=== PATIENT | male | born 1960 | race Caucasian/White ===

== ENCOUNTER 2016-09-23 08:20 | Inpatient (IN) | payer OTHER ==
[2016-09-23 10:37] VITALS: BMI 29.7
--- NOTE | 2016-09-23 13:53 | HP ---
CIWA Score - CIWA Score Nausea/Vomitin Muscle Tremors: 3 Anxiety: 3 Agitation: 3 Paroxysmal Sweats: 2 Orientation: 0-Oriented Tacttile Disturbances: 2-Mild Itch/Numbness/Burn Auditory Disturbances: 2-Mild Harshness/Frighten Visual Disturbances: 2-Mild Sensitivity Headache: 2-Mild CIWA-Ar Total Score: 22 Admission ROS BHS - HPI Chief Complaint: I AM HERE TO STOP USING XANAX AND KLONOPIN Allergies/Adverse Reactions: Allergies Allergy/AdvReac Type Severity Reaction Status Date / Time clarithromycin [From Biaxin] Allergy Hives Verified 09/23/16 11:16 codeine Allergy Hives Verified 09/23/16 11:16 Penicillins Allergy Hives Verified 09/23/16 11:16 History of Present Illness: THIS 56 YEARS OLD MALE WITH XANAX SEEKING HELP TO STOP USING XANAX AND KLONOPIN MMTP 120 MGS/DAY,LAST MEDICATED TODAY LAST DETOX 2013 CHRONIC ULCER BOTH LEGS 2 YEARS NICOTINE DEPENDENCE NO SIGNIFICANT PERIOD OF SOBRIETY Exam Limitations: No Limitations - Ebola screening Have you traveled outside of the country in the last 21 days: No Have you had contact with anyone from an Ebola affected area: No Have you been sick,other than usual withdrawal symptoms: No - Review of Systems Constitutional: Loss of Appetite, Malaise, Night Sweats, Changes in sleep, Weakness EENT: reports: Nose Congestion Respiratory: reports: No Symptoms reported Cardiac: reports: Palpitations GI: reports: Nausea, Poor Appetite : reports: No Symptoms Reported Musculoskeletal: reports: Back Pain, Muscle Pain Integumentary: reports: Dryness Neuro: reports: Headache, Tremors Endocrine: reports: No Symptoms Reported Hematology: reports: No Symptoms Reported, Other (ANEMIA) Psychiatric: reports: No Sypmtoms Reported, Judgement Intact, Mood/Affect Appropiate Patient History - Patient Medical History Hx Anemia: Yes (ON IRON) Hx Asthma: No Hx Chronic Obstructive Pulmonary Disease (COPD): No Hx Cancer: No Hx Cardiac Disorders: No Hx Congestive Heart Failure: Yes Hx Hypertension: Yes (ON MED) Hx Hypercholesterolemia: No Hx Pacemaker: No HX Cerebrovascular Accident: No Hx Seizures: No Hx Dementia: No Hx Diabetes: Yes (bgm-135 ON MED) Hx Gastrointestinal Disorders: No Hx Liver Disease: No Hx Genitourinary Disorders: No Hx Sexually Transmitted Disorders: No Hx Renal Disease (ESRD): No Hx Thyroid Disease: No Hx Human Immunodeficiency Virus (HIV): No (LAST 2015 NEGATIVE) Hx Hepatitis C: No Hx Depression: No Hx Suicide Attempt: No Hx Bipolar Disorder: No Hx Schizophrenia: No Other Medical History: NO SUICIDAL,NO HOMICIDAL - Patient Surgical History Past Surgical History: Yes Hx Abdominal Surgery: Yes (POLYP TUMOR REMOVAL 1985) Hx Appendectomy: Yes (1989) Other Surgical History: 1969- THYROID CYST Anesthesia Reaction: No - PPD History Previous Implant?: Yes Documented Results: Negative w/proof Implanted On Prior [facility] Admission?: Yes PPD to be Administered?: Yes - Smoking Cessation Smoking history: Current every day smoker Have you smoked in the past 12 months: Yes Aproximately how many cigarettes per day: 8 If you are a former smoker, when did you quit?: 10/20/2014 Hx Chewing Tobacco Use: No Initiated information on smoking cessation: Yes 'Breaking Loose' booklet given: 09/23/16 - Substance & Tx. History Hx Alcohol Use: No Hx Substance Use: Yes Substance Use Type: Tranquilizers Hx Substance Use Treatment: Yes (2011 [facility]) - Substances Abused Alprazolam (Xanax) Route: Oral Frequency: 3-6 times per week Amount used: 4 stiks Age of first use: 89 Date of Last Use: 09/21/16 Benzodiazepine (Klonopin) Route: Oral Frequency: Daily Amount used: 7-8 pills Age of first use: 55 Date of Last Use: 09/09/16 Diazepam Route: Oral Frequency: Daily Amount used: 4-5 pills Age of first use: 55 Date of Last Use: 09/18/16 Family Disease History - Family Disease History Family Disease History: CA: Grandparent (paternal: colon cancer), Father (colon cancer ), Other: Mother (emphysema ) Admission Physical Exam BHS - Vital Signs Vital Signs: Vital Signs Temperature 97.9 F 09/23/16 14:58 Pulse Rate 86 09/23/16 14:58 Respiratory Rate 20 09/23/16 14:58 Blood Pressure 149/88 09/23/16 14:58 O2 Sat by Pulse Oximetry (%) - Physical General Appearance: Yes: Moderate Distress, Tremorous, Irritable, Sweating, Anxious HEENTM: Yes: Hearing grossly Normal, Pharynx Normal, Nasal Congestion Respiratory: Yes: Lungs Clear, Normal Breath Sounds, No Respiratory Distress, Other (LIPOMA LEFT POSTERIOR CHEST WALL 4X4 CMS) Neck: Yes: Within Normal Limits, Supple, Trachea in good position, Other (SCAR ANTERIOR OF NECK) Breast: Yes: Other (GYNECOMASTIA LEFT) Cardiology: Yes: Within Normal Limits, Regular Rhythm, Regular Rate, S1, S2 Abdominal: Yes: Within Normal Limits, Normal Bowel Sounds, Non Tender, Flat, Soft Genitourinary: Yes: Within Normal Limits Back: Yes: Muscle Spasm Musculoskeletal: Yes: Back pain, Muscle Pain Extremities: Yes: Tremors (SWELLING BOTH LEGS SUPERFICIAL ULCER BOTH LEGS) Neurological: Yes: foot miter operator II-XII NML intact, Fully Oriented, Alert, Motor Strength 5/5 Integumentary: Yes: Dry Lymphatic: Yes: Within Normal Limits - Diagnostic (1) Uncomplicated sedative, hypnotic or anxiolytic withdrawal Current Visit: Yes Status: Acute (2) Methadone maintenance therapy patient Current Visit: Yes Status: Acute (3) Anemia Current Visit: No Status: Acute Qualifiers: Anemia type: unspecified type Qualified Code(s): D64.9 - Anemia, unspecified (4) Polysubstance (excluding opioids) dependence Current Visit: No Status: Acute (5) History of DVT of lower extremity Current Visit: Yes Status: Acute (6) S/P IVC filter Current Visit: Yes Status: Acute (7) Ulcers of both lower legs Current Visit: Yes Status: Acute (8) Gynecomastia, male Current Visit: Yes Status: Acute (9) Lipoma of chest wall Current Visit: Yes Status: Acute Cleared for Admission [facility] - Detox or Rehab [facility] Level of Care: Medically Managed Detox Regimen/Protocol: Valium [facility] Breath Alcohol Content Breath Alcohol Content: 0 Urine Drug Screen - Results Drug Screen Negative: No Urine Drug Screen Results: BZO-Benzodiazepines, MTD-Methadone, TCA-Tricyclic Antidepress
[2016-09-23] MEDS ORDERED: MAGNESIUM CITRATE 300 ML BOTTLE PO PRN (14:12)
[2016-09-23] MEDS ORDERED: ACETAMINOPHEN 325 MG TABLET (FP) PO PRN (14:12)
[2016-09-23] MEDS ORDERED: hydrOXYzine PAMOATE 25 MG CAPSULE (FP) PO PRN (14:12)
[2016-09-23] MEDS ORDERED: MENTHOL/PHENOL 1 EACH UD MM PRN (14:12)
[2016-09-23] MEDS ORDERED: MAG HYDROX/AL HYDROX/SIMETH 30 ML UNIT-DOSE CUP PO PRN (14:12)
[2016-09-23] MEDS ORDERED: guaiFENesin/D-METHORPHAN HB 10 ML UNIT-DOSE CUPS PO PRN (14:12)
[2016-09-23] MEDS ORDERED: MAGNESIUM HYDROX 2400MG/30ML ORAL SUSPENSION 30 ML CUP PO PRN (14:12)
[2016-09-23] MEDS ORDERED: P-EPHED 60MG/TRIPROLIDI 2.5MG TABLET PO PRN (14:12)
[2016-09-23] MEDS ORDERED: LOPERAMIDE HCL 2 MG CAPSULE PO PRN (14:12)
[2016-09-23] MEDS ORDERED: diazePAM 5 MG TABLET PO ONE (14:42)
[2016-09-23 15:56] LABS: HIV 1 & 2 AB NEGATIVE; HIV 1 AGp24 NEGATIVE
[2016-09-23] MEDS: metFORMIN HCL 500 MG TABLET (FP) PO SCH (19:37)
[2016-09-23] MEDS: FERROUS SO4 325 MG TABLET (FP) PO SCH (19:37)
[2016-09-23] MEDS: diazePAM 5 MG TABLET PO PRN (19:37)
[2016-09-23] MEDS: THIAMINE HCL 100 MG TABLET (FP) PO SCH (23:30)
[2016-09-23] MEDS: diazePAM 5 MG TABLET PO SCH (23:30)
[2016-09-23] MEDS: diphenhydrAMINE HCL 50 MG CAPSULE PO PRN (23:31)
[2016-09-23] MEDS: SILVER SULFADIAZINE 1% TOP CREAM 50 GM JAR TP SCH (23:38)
[2016-09-24] MEDS: METHADONE HCL 40 MG DISPERSABLE TABLET PO SCH (05:59)
[2016-09-24] MEDS: diazePAM 5 MG TABLET PO SCH ×3 (05:59→22:01)
[2016-09-24] MEDS: metFORMIN HCL 500 MG TABLET (FP) PO SCH ×2 (08:16→17:48)
[2016-09-24] MEDS: FERROUS SO4 325 MG TABLET (FP) PO SCH ×3 (08:17→17:48)
--- NOTE | 2016-09-24 09:14 | EKG ---
Test Reason : Blood Pressure : / mmHG Vent. Rate : 086 BPM Atrial Rate : 086 BPM P-R Int : 130 ms QRS Dur : 086 ms QT Int : 420 ms P-R-T Axes : 066 028 037 degrees QTc Int : 502 ms NORMAL SINUS RHYTHM POSSIBLE LEFT ATRIAL ENLARGEMENT PROLONGED QT ABNORMAL ECG WHEN COMPARED WITH ECG OF 13-MAR-2016 12:22, NO SIGNIFICANT CHANGE WAS FOUND Confirmed by RHINA LEMUS MD ([id number]) on 09/24/2016 9:14:15 AM Referred By: Confirmed By:RHINA LEMUS MD
[2016-09-24 10:15] LABS: MCH 22.9 pg (25.7-33.7); MCHC 30.9 g/dl (32.0-35.9); MEAN CELL VOLUME 74.1 fl (80-96); MEAN PLT VOLUME 7.9 fl (7.5-11.1); PLATELET COUNT 388 K/MM3 (134-434); RDW 17.6 % (11.9-15.9); WHITE BLOOD COUNT 7.6 K/mm3 (4.0-10.0)
[2016-09-24] MEDS: PRENATAL VITAMINS W/ FOLIC ACID TABLET (FP) PO SCH (10:22)
[2016-09-24] MEDS: IBUPROFEN 400 MG TABLET (FP) PO PRN ×2 (10:22→17:50)
[2016-09-24] MEDS: diazePAM 5 MG TABLET PO PRN (10:22)
[2016-09-24] MEDS: METOPROLOL SUCCINATE 25 MG TAB.SR.24H (FP) PO SCH (10:22)
[2016-09-24] MEDS: SILVER SULFADIAZINE 1% TOP CREAM 50 GM JAR TP SCH ×2 (10:24→22:01)
[2016-09-24 10:37] LABS: ALK PHOS 119 U/L (45-117); ANION GAP 10 (8-16); BILIRUBIN,TOTAL 0.3 mg/dL (0.2-1.0); CO2 27 mmol/L (21-32); COCKROFT - GAULT 110.38; CREATININE 0.9 mg/dL (0.7-1.3); GLUCOSE,RANDOM 109 mg/dL (74-106); SGOT/AST 27 U/L (15-37); SGPT/ALT 11 U/L (12-78); TOT PROT 7.7 g/dl (6.4-8.2)
--- NOTE | 2016-09-24 13:58 | PN ---
S CIWA - CIWA Score Nausea/Vomitin Muscle Tremors: 3 Anxiety: 3 Agitation: 3 Paroxysmal Sweats: 3 Orientation: 0-Oriented Tacttile Disturbances: 2-Mild Itch/Numbness/Burn Auditory Disturbances: 0-None Visual Disturbances: 1-Very Mild Sensitivity Headache: 2-Mild CIWA-Ar Total Score: 19 S Progress Note (SOAP) Subjective: Shakes, sweats, irritability, joint/right arm pain Objective: 09/24/16 13:57 Vital Signs - 8 hr 09/24/16 09/24/16 09/24/16 06:00 06:30 10:50 Temperature 98.4 F 98.1 F Pulse Rate 80 87 Respiratory 18 18 18 Rate Blood Pressure 144/84 156/97 Laboratory Last Values WBC 7.6 K/mm3 (4.0-10.0) 09/24/16 06:10 RBC 4.19 M/mm3 (4.00-5.60) 09/24/16 06:10 Hgb 9.6 GM/dL (11.7-16.9) L D 09/24/16 06:10 Hct 31.1 % (35.4-49) L 09/24/16 06:10 MCV 74.1 fl (80-96) L 09/24/16 06:10 MCHC 30.9 g/dl (32.0-35.9) L 09/24/16 06:10 RDW 17.6 % (11.9-15.9) H 09/24/16 06:10 Plt Count 388 K/MM3 (134-434) 09/24/16 06:10 MPV 7.9 fl (7.5-11.1) 09/24/16 06:10 Sodium 138 mmol/L (136-145) 09/24/16 06:10 Potassium 4.3 mmol/L (3.5-5.1) 09/24/16 06:10 Chloride 101 mmol/L (98-107) 09/24/16 06:10 Carbon Dioxide 27 mmol/L (21-32) 09/24/16 06:10 Anion Gap 10 (8-16) 09/24/16 06:10 BUN 12 mg/dL (7-18) D 09/24/16 06:10 Creatinine 0.9 mg/dL (0.7-1.3) 09/24/16 06:10 Creat Clearance w eGFR > 60 (>60) 09/24/16 06:10 POC Glucometer 96 UNITS (()) 09/24/16 05:57 Random Glucose 109 mg/dL (74-106) H 09/24/16 06:10 Calcium 9.0 mg/dL (8.5-10.1) 09/24/16 06:10 Total Bilirubin 0.3 mg/dL (0.2-1.0) 09/24/16 06:10 AST 27 U/L (15-37) D 09/24/16 06:10 ALT 11 U/L (12-78) L D 09/24/16 06:10 Alkaline Phosphatase 119 U/L (45-117) H 09/24/16 06:10 Total Protein 7.7 g/dl (6.4-8.2) 09/24/16 06:10 Albumin 3.0 g/dl (3.4-5.0) L 09/24/16 06:10 RPR Titer Nonreactive (NONREACTIVE) 09/24/16 06:10 HIV 1&2 Antibody Screen Negative 09/23/16 11:50 HIV P24 Antigen Negative 09/23/16 11:50 Labs noted Assessment: 09/24/16 13:57 withdrawal sx Plan: continue detox
[2016-09-24] MEDS: THIAMINE HCL 100 MG TABLET (FP) PO SCH (22:01)
[2016-09-25] MEDS: IBUPROFEN 400 MG TABLET (FP) PO PRN (04:19)
[2016-09-25] MEDS: diazePAM 5 MG TABLET PO PRN ×2 (04:19→19:47)
[2016-09-25] MEDS: METHADONE HCL 40 MG DISPERSABLE TABLET PO SCH (05:34)
[2016-09-25] MEDS: FERROUS SO4 325 MG TABLET (FP) PO SCH ×3 (07:58→18:29)
[2016-09-25] MEDS: metFORMIN HCL 500 MG TABLET (FP) PO SCH ×2 (07:58→18:29)
[2016-09-25] MEDS: diazePAM 5 MG TABLET PO SCH ×2 (10:11→22:13)
[2016-09-25] MEDS: METOPROLOL SUCCINATE 25 MG TAB.SR.24H (FP) PO SCH (10:11)
[2016-09-25] MEDS: PRENATAL VITAMINS W/ FOLIC ACID TABLET (FP) PO SCH (10:11)
[2016-09-25] MEDS: SILVER SULFADIAZINE 1% TOP CREAM 50 GM JAR TP SCH ×2 (10:13→23:00)
--- NOTE | 2016-09-25 12:49 | PN ---
[facility] CIWA - CIWA Score Nausea/Vomitin-No Nausea/No Vomiting Muscle Tremors: 3 Anxiety: 4-Mod. Anxious/Guarded Agitation: 4-Moderately Restless Paroxysmal Sweats: 3 Orientation: 0-Oriented Tacttile Disturbances: 0-None Auditory Disturbances: 0-None Visual Disturbances: 0-None Headache: 0-None Present CIWA-Ar Total Score: 14 BHS Progress Note (SOAP) Subjective: Anxiety,tremors,sweating,interrupted sleep,restless. Objective: 09/25/16 12:45 Vital Signs - 8 hr 09/25/16 09/25/16 06:00 09:48 Temperature 98.4 F 97.9 F Pulse Rate 60 71 Respiratory 18 16 Rate Blood Pressure 160/84 149/88 Laboratory Last Values WBC 7.6 K/mm3 (4.0-10.0) 09/24/16 06:10 RBC 4.19 M/mm3 (4.00-5.60) 09/24/16 06:10 Hgb 9.6 GM/dL (11.7-16.9) L D 09/24/16 06:10 Hct 31.1 % (35.4-49) L 09/24/16 06:10 MCV 74.1 fl (80-96) L 09/24/16 06:10 MCHC 30.9 g/dl (32.0-35.9) L 09/24/16 06:10 RDW 17.6 % (11.9-15.9) H 09/24/16 06:10 Plt Count 388 K/MM3 (134-434) 09/24/16 06:10 MPV 7.9 fl (7.5-11.1) 09/24/16 06:10 Sodium 138 mmol/L (136-145) 09/24/16 06:10 Potassium 4.3 mmol/L (3.5-5.1) 09/24/16 06:10 Chloride 101 mmol/L (98-107) 09/24/16 06:10 Carbon Dioxide 27 mmol/L (21-32) 09/24/16 06:10 Anion Gap 10 (8-16) 09/24/16 06:10 BUN 12 mg/dL (7-18) D 09/24/16 06:10 Creatinine 0.9 mg/dL (0.7-1.3) 09/24/16 06:10 Creat Clearance w eGFR > 60 (>60) 09/24/16 06:10 POC Glucometer 108 UNITS (()) 09/25/16 05:32 Random Glucose 109 mg/dL (74-106) H 09/24/16 06:10 Calcium 9.0 mg/dL (8.5-10.1) 09/24/16 06:10 Total Bilirubin 0.3 mg/dL (0.2-1.0) 09/24/16 06:10 AST 27 U/L (15-37) D 09/24/16 06:10 ALT 11 U/L (12-78) L D 09/24/16 06:10 Alkaline Phosphatase 119 U/L (45-117) H 09/24/16 06:10 Total Protein 7.7 g/dl (6.4-8.2) 09/24/16 06:10 Albumin 3.0 g/dl (3.4-5.0) L 09/24/16 06:10 RPR Titer Nonreactive (NONREACTIVE) 09/24/16 06:10 HIV 1&2 Antibody Screen Negative 09/23/16 11:50 HIV P24 Antigen Negative 09/23/16 11:50 labs noted Assessment: 09/25/16 12:49 Withdrawal sx. Plan: Continue detox
[2016-09-25] MEDS: THIAMINE HCL 100 MG TABLET (FP) PO SCH (22:12)
[2016-09-25] MEDS: diphenhydrAMINE HCL 50 MG CAPSULE PO PRN (22:12)
[2016-09-26] MEDS: diphenhydrAMINE HCL 50 MG CAPSULE PO PRN ×2 (02:24→22:47)
[2016-09-26] MEDS: diazePAM 5 MG TABLET PO PRN (02:25)
[2016-09-26] MEDS: METHADONE HCL 40 MG DISPERSABLE TABLET PO SCH (05:39)
[2016-09-26] MEDS: FERROUS SO4 325 MG TABLET (FP) PO SCH ×3 (08:00→17:16)
[2016-09-26] MEDS: metFORMIN HCL 500 MG TABLET (FP) PO SCH ×2 (08:41→17:16)
[2016-09-26] MEDS: diazePAM 5 MG TABLET PO SCH ×2 (10:08→22:47)
[2016-09-26] MEDS: METOPROLOL SUCCINATE 25 MG TAB.SR.24H (FP) PO SCH (10:08)
[2016-09-26] MEDS: PRENATAL VITAMINS W/ FOLIC ACID TABLET (FP) PO SCH (10:08)
[2016-09-26] MEDS: SILVER SULFADIAZINE 1% TOP CREAM 50 GM JAR TP SCH ×2 (10:10→22:48)
--- NOTE | 2016-09-26 14:50 | PN ---
BHS Progress Note (SOAP) Subjective: sweats interrupted sleep body aches beside the lympoma on my back I also have nodules on my left breast. Objective: 09/26/16 14:45 Vital Signs Temperature 97.7 F 09/26/16 14:00 Pulse Rate 64 09/26/16 14:00 Respiratory Rate 18 09/26/16 14:00 Blood Pressure 144/62 09/26/16 14:00 O2 Sat by Pulse Oximetry (%) Laboratory Tests 09/23/16 09/23/16 09/23/16 11:48 11:50 16:28 WBC RBC Hgb Hct MCV MCHC RDW Plt Count MPV Sodium Potassium Chloride Carbon Dioxide Anion Gap BUN Creatinine Creat Clearance w eGFR POC Glucometer 135 132 Random Glucose Calcium Total Bilirubin AST ALT Alkaline Phosphatase Total Protein Albumin RPR Titer HIV 1&2 Antibody Screen Negative HIV P24 Antigen Negative 09/24/16 09/24/16 09/24/16 05:57 06:10 06:10 WBC 7.6 RBC 4.19 Hgb 9.6 L D Hct 31.1 L MCV 74.1 L MCHC 30.9 L RDW 17.6 H Plt Count 388 MPV 7.9 Sodium 138 Potassium 4.3 Chloride 101 Carbon Dioxide 27 Anion Gap 10 BUN 12 D Creatinine 0.9 Creat Clearance w eGFR > 60 POC Glucometer 96 Random Glucose 109 H Calcium 9.0 Total Bilirubin 0.3 AST 27 D ALT 11 L D Alkaline Phosphatase 119 H Total Protein 7.7 Albumin 3.0 L RPR Titer HIV 1&2 Antibody Screen HIV P24 Antigen 09/24/16 09/24/16 09/25/16 06:10 16:23 05:32 WBC RBC Hgb Hct MCV MCHC RDW Plt Count MPV Sodium Potassium Chloride Carbon Dioxide Anion Gap BUN Creatinine Creat Clearance w eGFR POC Glucometer 116 108 Random Glucose Calcium Total Bilirubin AST ALT Alkaline Phosphatase Total Protein Albumin RPR Titer Nonreactive HIV 1&2 Antibody Screen HIV P24 Antigen 09/25/16 09/26/16 16:09 05:43 WBC RBC Hgb Hct MCV MCHC RDW Plt Count MPV Sodium Potassium Chloride Carbon Dioxide Anion Gap BUN Creatinine Creat Clearance w eGFR POC Glucometer 94 112 Random Glucose Calcium Total Bilirubin AST ALT Alkaline Phosphatase Total Protein Albumin RPR Titer HIV 1&2 Antibody Screen HIV P24 Antigen awake/alert ambulating no acute distress Assessment: 09/26/16 14:46 withdrawal sx lympoma to left side of back noted nodules no left breast area also noted Plan: continue detox increase fluids chest x-ray ordered but also encourage to seek his PMD for further testing with mammogram or sonogram. d/c in am
[2016-09-26] MEDS: IBUPROFEN 400 MG TABLET (FP) PO PRN (15:36)
[2016-09-26] MEDS: THIAMINE HCL 100 MG TABLET (FP) PO SCH (22:47)
[2016-09-27] MEDS: METHADONE HCL 40 MG DISPERSABLE TABLET PO SCH (05:27)
[2016-09-27 06:09] VITALS: BP 148/78; PULSE 62; TEMP 97.7
[2016-09-27] MEDS: FERROUS SO4 325 MG TABLET (FP) PO SCH (07:15)
[2016-09-27] MEDS: metFORMIN HCL 500 MG TABLET (FP) PO SCH (07:15)
--- NOTE | 2016-09-27 08:52 | DS ---
[facility] Detox Discharge Summary Admission Date: 09/23/16 - History Present History: Alcohol Dependence, Sedative Dependence - Physical Exam Results Vital Signs: Vital Signs Temperature 97.7 F 09/27/16 06:08 Pulse Rate 62 09/27/16 06:08 Respiratory Rate 18 09/27/16 06:08 Blood Pressure 148/78 09/27/16 06:08 O2 Sat by Pulse Oximetry (%) - Treatment Hospital Course: Detox Protocol Followed, Detoxed Safely, Responded well, Discharged Condition Good - Medication Discharge Medications: Ambulatory Orders Methadone [Dolophine -] 120 mg PO DAILY 03/13/16 Metformin HCl 500 mg PO BID #60 tablet 03/21/16 Metoprolol Succinate [Toprol XL -] 25 mg PO DAILY #30 tab.sr.24h 03/21/16 Ferrous Sulfate [Feosol] 325 mg PO TID 09/23/16 Silver Sulfadiazine 1% Top Cr [Silvadene -] 1 applic TP BID 09/23/16 - Diagnosis (1) Gynecomastia, male Current Visit: Yes Status: Chronic (2) History of DVT of lower extremity Current Visit: Yes Status: Chronic (3) Lipoma of chest wall Current Visit: Yes Status: Acute (4) Methadone maintenance therapy patient Current Visit: Yes Status: Chronic (5) Ulcers of both lower legs Current Visit: Yes Status: Chronic (6) Uncomplicated sedative, hypnotic or anxiolytic withdrawal Current Visit: Yes Status: Chronic (7) Anemia Current Visit: Yes Status: Chronic Qualifiers: Anemia type: unspecified type Qualified Code(s): D64.9 - Anemia, unspecified (8) Diabetes Current Visit: Yes Status: Chronic Qualifiers: Diabetes mellitus type: type 2 Chronic kidney disease stage: stage 2 ( mild) (9) Hypertension Current Visit: Yes Status: Chronic Qualifiers: Hypertension type: essential hypertension Qualified Code(s): I10 - Essential (primary) hypertension - AMA Did Patient Leave Against Medical Advice: No
[2016-09-27] MEDS ORDERED: diazePAM 5 MG TABLET PO SCH (10:00)
[2016-09-27] MEDS: SILVER SULFADIAZINE 1% TOP CREAM 50 GM JAR TP SCH (10:10)
[2016-09-27] MEDS: METOPROLOL SUCCINATE 25 MG TAB.SR.24H (FP) PO SCH (10:10)
[2016-09-27] MEDS: PRENATAL VITAMINS W/ FOLIC ACID TABLET (FP) PO SCH (10:10)
== END 2016-09-27 10:06 | disposition home or self-care (01) | DRG 897 ==
LOC: YASAS 08:20 → Y6N 12:31
PROVIDERS: ADMIT Internal Medicine; ATTEND Internal Medicine
PROC: HZ2ZZZZ Detoxification Services for Substance Abuse Treatment (ICD-10-PCS; principal; 2016-09-23)
DX: F13.230 Sedative, hypnotic or anxiolytic dependence with withdrawal, uncomplicated (principal); F11.20 Opioid dependence, uncomplicated; L97.929 Non-pressure chronic ulcer of unspecified part of left lower leg with unspecified severity; L97.919 Non-pressure chronic ulcer of unspecified part of right lower leg with unspecified severity; F17.210 Nicotine dependence, cigarettes, uncomplicated; E11.9 Type 2 diabetes mellitus without complications; D64.9 Anemia, unspecified; I10 Essential (primary) hypertension; I50.9 Heart failure, unspecified; D17.1 Benign lipomatous neoplasm of skin and subcutaneous tissue of trunk; Z95.828 Presence of other vascular implants and grafts; Z86.718 Personal history of other venous thrombosis and embolism
CPT/HCPCS: 36415; 71020-TC; 80053; 81003; 85027; 86593; 87389; 93005; 93010

== ENCOUNTER 2016-11-14 08:41 | Day surgery (SDC) | payer OTHER, MEDICARE ==
[2016-11-10 13:52] VITALS: BMI 29.1
[2016-11-14] MEDS ORDERED: LIDOCAINE HCL 1%, 10 MG/ML (20ML VIAL) ONE (11:56)
[2016-11-14] MEDS ORDERED: MIDAZOLAM HCL 2 MG/2 ML SINGLE DOSE VIAL ONE ×3 (12:08→12:27)
[2016-11-14] MEDS ORDERED: PROPOFOL 20 ML ONE (12:25)
[2016-11-14] MEDS: BUPIVACAINE HCL/PF 0.5% (5MG/ML) 10 ML VIAL ONE ×2 (12:38→12:46)
[2016-11-14] MEDS ORDERED: LIDOCAINE HCL 1%, 10 MG/ML (20ML VIAL) IJ ONE ×2 (12:38)
[2016-11-14] MEDS ORDERED: BUPIVACAINE HCL/PF 0.5% (5MG/ML) 10 ML VIAL ONE (12:40)
[2016-11-14] MEDS ORDERED: hydrALAZINE HCL 20 MG/ML VIAL ONE (12:48)
[2016-11-14] MEDS ORDERED: METOPROLOL TARTRATE 5 MG/5 ML VIAL ONE (12:48)
--- NOTE | 2016-11-14 13:13 | OP ---
Operative Note - Note: Operative Date: 11/14/16 Pre-Operative Diagnosis: left flank lipoma Operation: excision lipoma left flank Findings: 12.0 cm. lipoma Surgeon: Mau Abel Dye Tub Operator: Luz Day Anesthesia: MAC Specimens Removed: lipoma Estimated Blood Loss (mls): 10
--- NOTE | 2016-11-14 13:14 | OP ---
Operative Note - Note: Operative Date: 11/14/16 Pre-Operative Diagnosis: Left back lipoma Operation: Excision of left back lipoma Post-Operative Diagnosis: Same as Pre-op Surgeon: Mau Abel Customer Operations Representative: Luz Day Anesthesiologist/SEAFOOD PROCESSOR: Sandee Pritchett MD Anesthesia: MAC Specimens Removed: Left back lipoma Estimated Blood Loss (mls): 5 Fluid Volume Replaced (mls): 500 Operative Report Dictated: Yes
--- NOTE | 2016-11-14 13:16 | SURG ---
Surgery Runner On Note Runner On: Luz Day PA-C Date of Service: 11/14/16 Diagnosis: Left back lipoma Procedure: Excision of left back lipoma I was present for the entirety of the operative procedure. For further detail, please refer to operative report. Visit type - Case Type Case Type: Scheduled Admission
[2016-11-14] MEDS ORDERED: PROMETHAZINE HCL 25 MG/1 ML VIAL IVPUSH PRN (13:19)
[2016-11-14] MEDS ORDERED: oxyCODONE HCL 5 MG TABLET PO PRN (13:19)
[2016-11-14] MEDS ORDERED: ONDANSETRON 4 MG/2 ML VIAL IVPUSH PRN (13:19)
[2016-11-14] MEDS ORDERED: LACTATED RINGERS SOLUTION 1,000 ML IV SCH (13:30)
[2016-11-14 14:52] VITALS: BP 154/88; PULSE 91; TEMP 98
--- NOTE | 2016-11-15 12:04 | OP ---
DATE OF OPERATION: 11/14/2016 PREOPERATIVE DIAGNOSIS: Left flank lipoma. POSTOPERATIVE DIAGNOSIS: Left flank lipoma. PROCEDURE: Excision, left flank lipoma. SURGEON: Mau Abel MD AUTO BODY MECHANIC APPRENTICE: Luz Day PA-C ANESTHESIA: Local with IV sedation. OPERATIVE FINDINGS: There was a [id number]-greatest-dimension lipoma of the left flank/left lateral chest wall. The rest of the findings were unremarkable. DESCRIPTION OF PROCEDURE: The patient was placed on the operating table in the right lateral decubitus position. Then, the area over the lipoma, which had previously been marked, was prepped with ChloraPrep and draped in sterile fashion. A timeout was taken. Then, an incision was mapped out over the lipoma, and the area infiltrated with 1% Xylocaine and 0.50% Marcaine in equal concentration. Incision was made with a scalpel and taken down through the skin and subcutaneous tissue. The skin was mobilized circumferentially off the lipoma, and then, using blunt dissection, the lipoma completely from the overlying skin. It was then removed from medial to lateral, from the chest wall above the fascia of the intercostal spaces and ribs using electrocautery. The mass was passed off the operative field and sent for pathological examination. Hemostasis was secured with electrocautery, and the wound copiously irrigated with sterile saline and the incision closed in layers with interrupted 3-0 Vicryl for the deep dermis and surgical venancio to reapproximate the skin edges. Steri-Strips, fluffs, and dry sterile dressings were placed, and the procedure terminated at this point. The patient was transferred to the postanesthesia care unit in stable condition, awake and alert. ESTIMATED BLOOD LOSS: Minimal. DRAINS: None. SPECIMENS: Lipoma to Pathology. I, Mau Abel MD, was physically present in the operating room from the time the patient was placed on the operating table until he was transferred to the postanesthesia care unit in my accompaniment. MD GELA Moore/[id number]
--- NOTE | 2016-11-15 15:01 | PATH ---
Surgical Pathology Report Patient Name: DAMION RUBI [facility]. Rec. #: [id number] /Age/Gender: 1960 (Age: 56) / M Account: [id number] Location: [facility] SURGICAL Taken: 11/14/2016 Received: 11/14/2016 Reported: 11/15/2016 Physicians: Mau Abel MD Specimen(s) Received LIPOMA OF BACK Clinical History Lipoma of the back Final Diagnosis SOFT TISSUE, BACK, EXCISION: LIPOMA WITH FOCAL FAT NECROSIS AND DYSTROPHIC CALCIFICATION. Electronically Signed Crow Nunez M.D. Gross Description Received in formalin labeled "lipoma of back," is a 10.0 x 7.8 x 4.0 cm portion of yellow, lobulated adipose tissue. Sectioning reveals a single necrotic focus. The remaining parenchyma is homogeneous yellow and smooth. Mattress Stripper sections are submitted in 5 cassettes with the necrotic focus in cassette 1. /11/14/2016 saudi/11/14/2016
== END 2016-11-14 15:00 | disposition home or self-care (01) ==
LOC: JASU-SURG 08:41
PROVIDERS: ATTEND Surgery
PROC: 0HB5XZX Excision of Chest Skin, External Approach, Diagnostic (ICD-10-PCS; 2016-11-14)
PROC: 0HQ5XZZ Repair Chest Skin, External Approach (ICD-10-PCS; principal; 2016-11-14 11:00)
DX: D17.1 Benign lipomatous neoplasm of skin and subcutaneous tissue of trunk (principal)
CPT/HCPCS: 88304-TC; 94760

== ENCOUNTER 2017-12-02 19:57 | Inpatient (IN) | payer OTHER ==
--- NOTE | 2017-12-02 20:43 | PDOC ---
History of Present Illness - General Chief Complaint: Pain Stated Complaint: PAIN Time Seen by Provider: 12/02/17 20:28 History Source: Patient, Old Records Exam Limitations: No Limitations - History of Present Illness Initial Comments: 12/02/17 21:22 This is a 57-year-old male with history of hypertension, diastolic heart failure , severe pulmonary hypertension, anemia, left lower extremities DVT with pulmonary embolus status post IVC filter placement 11/2014, NIDDM, COPD presents emergency Department with 7 days of worsening bilateral leg pain and swelling. Patient states the pain is worse in his right leg when compared to his left. Review of systems patient also admits to increased exercise intolerance is currently able to ambulate 2 stairs before having to stop due to shortness of breath. Patient is unable to ambulate up inclines. Patient denies shortness of breath, chest pain, headaches, dizziness, abdominal bloating, abdominal pain, nausea, vomiting. Patient receives methadone from a clinic at [address] [place] [address]. Past History - Past Medical History Allergies/Adverse Reactions: Allergies Allergy/AdvReac Type Severity Reaction Status Date / Time clarithromycin [From Biaxin] Allergy Hives Verified 12/02/17 20:12 codeine Allergy Hives Verified 12/02/17 20:12 Penicillins Allergy Hives Verified 12/02/17 20:12 Home Medications: Ambulatory Orders Methadone [Dolophine -] 120 mg PO DAILY 03/13/16 metFORMIN HCL [Metformin HCl] 500 mg PO BID #60 tablet 03/21/16 Ferrous Sulfate [Feosol] 400 mg PO BID 09/23/16 Silver Sulfadiazine 1% Top Cr [Silvadene -] 1 applic TP PRN 09/23/16 Metoprolol Succinate [Toprol XL -] 25 mg PO DAILY 11/10/16 Anemia: Yes (ON IRON) Asthma: No Cancer: No Cardiac Disorders: Yes (PVD) CVA: No COPD: No CHF: Yes (4805-5536) Dementia: No Diabetes: Yes (NIDDM) GI Disorders: No Disorders: No HTN: Yes (ON MED) Hypercholesterolemia: No Kidney Stones: No Liver Disease: No Seizures: No Thyroid Disease: No - Surgical History Abdominal Surgery: Yes (STOMACH POLYP X3 TUMOR REMOVAL 1985) Appendectomy: Yes (1989) - Reproductive History Testicular Surgery: No - Immunization History Td Vaccination: Yes Immunization Up to Date: Yes - Suicide/Smoking/Psychosocial Hx Smoking Status: Yes Smoking History: Current every day smoker Have you smoked in the past 12 months: Yes Number of Cigarettes Smoked Daily: 8 If you are a former smoker, when did you quit?: 10/20/2014 Information on smoking cessation initiated: No 'Breaking Loose' booklet given: 11/10/16 Hx Alcohol Use: No Drug/Substance Use Hx: No Substance Use Type: None Hx Substance Use Treatment: Yes (2011 [facility]) Review of Systems - Review of Systems Able to Perform ROS?: Yes Is the patient limited Liberian proficient: No Constitutional: No: Symptoms Reported HEENTM: No: Symptoms Reported Respiratory: Yes: See HPI Cardiac (ROS): No: Symptoms Reported ABD/GI: No: Symptoms Reported : No: Symptoms Reported Musculoskeletal: Yes: See HPI Integumentary: No: Symptoms Reported Neurological: No: Symptoms reported *Physical Exam - Vital Signs Last Vital Signs Temp Pulse Resp BP Pulse Ox 98.1 F 80 18 159/83 98 12/02/17 20:14 12/02/17 20:14 12/02/17 20:14 12/02/17 20:14 12/02/17 20:14 - Physical Exam General Appearance: Yes: Appropriately Dressed. No: Apparent Distress HEENT: positive: Normal ENT Inspection Neck: positive: Trachea midline, Supple Respiratory/Chest: positive: Lungs Clear, Wheezing (Expirational). negative: Respiratory Distress, Accessory Muscle Use Cardiovascular: positive: Regular Rhythm, Regular Rate, Edema (3+), Murmur (3/6 holosystolic). negative: S1, S2 Vascular Pulses: Dorsalis-Pedis (R): 0 (present with doppler), Doralis-Pedis (L) : 2+ Gastrointestinal/Abdominal: positive: Normal Bowel Sounds, Soft. negative: Tender Musculoskeletal: positive: Normal Inspection. negative: CVA Tenderness Extremity: positive: Normal Inspection, Other (Venous stasis changes present to bilateral lower extremities. Patient with 2 open venous stasis ulcers on his right lower extremity and one venous stasis ulcer on his left lower extremity.) Neurologic: positive: Alert, Normal Response ED Treatment Course - LABORATORY CBC & Chemistry Diagram: 12/02/17 21:38 12/02/17 21:38 Medical Decision Making - Medical Decision Making 12/02/17 21:40 A/P: 57-year-old male history of hypertension, CHF, DVT and PE today with bilateral lower extremity pain Lungs with diffuse expiratory wheezes present Right lower extremity swollen and diffusely tender to the calf. No cords palpated 2 venous stasis ulcers present to the medial side of the catheter measuring 1- 10 x 7 cm venous-stasis ulcer present to the left anterior lateral lower lower extremity 2+ DP pulses present in the left foot dopplerable pulses in right foot Venous stasis ulcers healthy appearing without discharge or drainage present Bilateral lower extremities warm to palpation Capillary refill less than 2 seconds bilateral feet Differential diagnoses include DVT, PVD, diabetic neuropathy, CHF exacerbation Labs, chest x-ray, Doppler, urine 12/03/17 00:29 Bilateral lower extremity duplex Dopplers as read by imaging dining car conductor: Right lower extremity: Negative for right lower extremity deep vein thrombosis. Evaluation of the calf veins is limited due to ulcerations. Left lower extremity: There is a thrombus in the left femoral vein. The thrombus is echogenic and there is recannulization. This is sign of a chronic thrombus. However since there is Swelling I cannot exclude possibly acute superimposed upon chronic thrombus. Note made of enlarged lymph nodes in bilateral inguinal regions. 12/03/17 01:07 X-rays read by me: Vascular congestion present. No focal consolidations or infiltrates present Although the patient has a BNP of 500 this is likely an acute exacerbation of his CHF. Patient labs notable for anemia with a hemoglobin of 7.1. Patient's PMD is Dr. Christian. I will admit the patient to hospitalist service. 12/03/17 02:[address] Emanuel who accepts patient for telemetry observation. *DC/Admit/Observation/Transfer Diagnosis at time of Disposition: CHF (congestive heart failure), Anemia - Discharge Dispostion Condition at time of disposition: Stable Decision to Admit order: Yes - Referrals - Patient Instructions - Post Discharge Activity
[2017-12-02] MEDS ORDERED: KETOROLAC TROMETHAMINE 30 MG/1 ML VIAL IVPUSH ONE (21:43)
[2017-12-02] MEDS ORDERED: KETOROLAC TROMETHAMINE 30 MG/1 ML VIAL ONE (21:56)
[2017-12-02 22:08] LABS: INR 1.19 (0.82-1.09); PROTHROMBIN TIME (PATIENT) 13.4 SEC (9.7-13.0)
[2017-12-02 22:18] LABS: ALBUMIN 2.6 g/dl (3.4-5.0); ANION GAP 7 (8-16); BILIRUBIN,TOTAL 0.2 mg/dL (0.2-1.0); BLOOD UREA NITROGEN 10 mg/dL (7-18); CALCIUM 8.4 mg/dL (8.5-10.1); CHLORIDE 106 mmol/L (98-107); CO2 24 mmol/L (21-32); GLUCOSE,RANDOM 124 mg/dL (74-106); MAGNESIUM 2.3 mg/dL (1.8-2.4); POTASSIUM 4.5 mmol/L (3.5-5.1); SGOT/AST 11 U/L (15-37); SGPT/ALT 8 U/L (12-78); SODIUM 137 mmol/L (136-145); TOT PROT 7.5 g/dl (6.4-8.2)
[2017-12-02 22:20] LABS: ALK PHOS 121 U/L (45-117)
[2017-12-02 23:07] LABS: BASO % 0.6 % (0-2.0); EOS % 2.4 % (0-4.5); HEMATOCRIT 24.4 % (35.4-49); HEMOGLOBIN 7.1 GM/dL (11.7-16.9); LYMPH % 11.9 % (8-40); MCHC 29.2 g/dl (32.0-35.9); MEAN CELL VOLUME 56.5 fl (80-96); MEAN PLT VOLUME 8.6 fl (7.5-11.1); MONO % 10.6 % (3.8-10.2); NEUT % 74.5 % (42.8-82.8); PLATELET COUNT 510 K/MM3 (134-434); RBC 4.32 M/mm3 (4.00-5.60); RDW 19.3 % (11.9-15.9); WHITE BLOOD COUNT 7.4 K/mm3 (4.0-10.0)
[2017-12-02 23:11] LABS: MCH 16.5 pg (25.7-33.7)
[2017-12-02 23:13] LABS: ANISOCYTOSIS 3+
[2017-12-02 23:14] LABS: OVALOCYTE 2+; PLATELET ESTIMATE INCREASED
[2017-12-03] MEDS ORDERED: methylPREDNISolone NA SUCC 40 MG/1 ML VIAL IVPUSH SCH (02:00)
[2017-12-03] MEDS ORDERED: FUROSEMIDE 40 MG/4 ML INJECTABLE VIAL IVPUSH STA (02:17)
--- NOTE | 2017-12-03 02:25 | HP ---
CHIEF COMPLAINT: b/l leg pain and swelling HISTORY OF PRESENT ILLNESS: 57-year-old male with history of hypertension, diastolic heart failure, severe pulmonary hypertension, anemia, left lower extremities DVT with pulmonary embolus status post IVC filter placement 11/2014, NIDDM, COPD presents emergency Department with 2 weeks of worsening bilateral leg pain and swelling. Patient reports that he has also been progressively short of breath on exertion over the last two weeks. He states that he is unable to walk more than 2 blocks and cannot walk up 2-3 stairs without becoming short of breath. He states that he sleeps sitting up because he is short of breath when laying down flat. Reports that his legs are burning and have decreased sensation. states that he follows closely with wound care at [facility] and has been putting dressings on his legs appropriately. Denies chest pain, fevers, chills, nausea, vomiting, diarrhea. ER course was notable for: (1) CXR with perihilar congestion (2) Hgb 7.1 (3) BNP ~500 Recent Travel: none PAST MEDICAL HISTORY: hypertension, diastolic heart failure, severe pulmonary hypertension, anemia, left lower extremities DVT with pulmonary embolus status post IVC filter placement 11/2014, NIDDM, COPD PAST SURGICAL HISTORY: IVC filter Social History: Smoking: Alcohol: Drugs: Family History: Allergies clarithromycin [From Biaxin] Allergy (Verified 12/02/17 20:12) Hives codeine Allergy (Verified 12/02/17 20:12) Hives Penicillins Allergy (Verified 12/02/17 20:12) Hives HOME MEDICATIONS: Home Medications Medication Instructions Recorded Methadone [Dolophine -] 120 mg PO DAILY 03/13/16 metFORMIN HCL [Metformin HCl] 500 mg PO BID #60 tablet 03/21/16 Ferrous Sulfate [Feosol] 400 mg PO BID 09/23/16 Silver Sulfadiazine 1% Top Cr 1 applic TP PRN 09/23/16 [Silvadene -] Metoprolol Succinate [Toprol XL -] 25 mg PO DAILY 11/10/16 REVIEW OF SYSTEMS CONSTITUTIONAL: Absent: fever, chills, diaphoresis, generalized weakness, malaise, loss of appetite, weight change HEENT: Absent: rhinorrhea, nasal congestion, throat pain, throat swelling, difficulty swallowing, mouth swelling, ear pain, eye pain, visual changes CARDIOVASCULAR: peripheral edema Absent: chest pain, syncope, palpitations, irregular heart rate, lightheadedness RESPIRATORY: Absent: cough, shortness of breath, dyspnea with exertion, orthopnea, wheezing, stridor, hemoptysis GASTROINTESTINAL: Absent: abdominal pain, abdominal distension, nausea, vomiting, diarrhea, constipation, melena, hematochezia GENITOURINARY: Absent: dysuria, frequency, urgency, hesitancy, hematuria, flank pain, genital pain MUSCULOSKELETAL: myalgia Absent:, arthralgia, joint swelling, back pain, neck pain SKIN: Absent: rash, itching, pallor HEMATOLOGIC/IMMUNOLOGIC: Absent: easy bleeding, easy bruising, lymphadenopathy, frequent infections ENDOCRINE: Absent: unexplained weight gain, unexplained weight loss, heat intolerance, cold intolerance NEUROLOGIC: Absent: headache, focal weakness or paresthesias, dizziness, unsteady gait, seizure, mental status changes, bladder or bowel incontinence PSYCHIATRIC: Absent: anxiety, depression, suicidal or homicidal ideation, hallucinations. PHYSICAL EXAMINATION Vital Signs - 24 hr 12/02/17 12/03/17 20:14 02:21 Temperature 98.1 F Pulse Rate 80 Pulse Rate [ 71 Apical] Respiratory 18 16 Rate Blood Pressure 159/83 Blood Pressure 160/76 [Right Arm] O2 Sat by Pulse 98 Oximetry (%) GENERAL: A&Ox3, no acute distress EYES: PERRLA, EOMI ENT: Moist mucus membranes NECK: mild JVD noted LUNGS: Diffuse wheezes b/l HEART: RRR, systolic murmur noted on exam ABDOMEN: Soft, nontender, BS present, well-healed scar noted on abdomen MUSCULOSKELETAL: No CVA Tenderness EXTREMITIES: 2+ pulses, no edema. venous stasis ulcers noted on b/l lower extremities, patient refused palpation of his lower extremities due to pain. Laboratory Results - last 24 hr 12/02/17 12/02/17 12/02/17 21:38 21:38 21:38 WBC 7.4 RBC 4.32 Hgb 7.1 L Hct 24.4 L D MCV 56.5 L MCH 16.5 L D MCHC 29.2 L RDW 19.3 H Plt Count 510 H MPV 8.6 D Absolute Neuts (auto) 5.5 Neutrophils % 74.5 D Lymphocytes % 11.9 D Monocytes % 10.6 H Eosinophils % 2.4 Basophils % 0.6 Nucleated RBC % 0 Hypochromia 3+ Platelet Estimate Increased Platelet Comment No clumping noted Anisocytosis 3+ Microcytosis 3+ Ovalocytes 2+ PT with INR 13.40 H INR 1.19 H Sodium 137 Potassium 4.5 Chloride 106 Carbon Dioxide 24 Anion Gap 7 L BUN 10 Creatinine 1.0 Creat Clearance w eGFR > 60 Random Glucose 124 H D Calcium 8.4 L Magnesium 2.3 Total Bilirubin 0.2 AST 11 L D ALT 8 L D Alkaline Phosphatase 121 H Creatine Kinase 50 Troponin I < 0.02 B-Natriuretic Peptide Total Protein 7.5 Albumin 2.6 L 12/02/17 21:38 WBC RBC Hgb Hct MCV MCH MCHC RDW Plt Count MPV Absolute Neuts (auto) Neutrophils % Lymphocytes % Monocytes % Eosinophils % Basophils % Nucleated RBC % Hypochromia Platelet Estimate Platelet Comment Anisocytosis Microcytosis Ovalocytes PT with INR INR Sodium Potassium Chloride Carbon Dioxide Anion Gap BUN Creatinine Creat Clearance w eGFR Random Glucose Calcium Magnesium Total Bilirubin AST ALT Alkaline Phosphatase Creatine Kinase Troponin I B-Natriuretic Peptide 520.37 H Total Protein Albumin ASSESSMENT/PLAN: 57-year-old male with history of hypertension, diastolic heart failure, severe pulmonary hypertension, anemia, left lower extremities DVT with pulmonary embolus status post IVC filter placement 11/2014, NIDDM, COPD presents emergency Department with 2 weeks of worsening bilateral leg pain and swelling and likely an acute COPD/CHF exacerbation #Lower extremity edema: likely venous stasis in conjunction with CHF exacerbation -obs tele admission -cards consultation appreciated -vascular surgery consultation appreciated -last echo was in 2015, showed EF of 60%, will repeat echo -DVT US was done and showed chronic DVT in R leg with uncertain acute on chronicity, no DVT in L leg -will need f/u with official read in AM -IV lasix 40mg daily -start neurontin 300 TID for pain -daily weights -strict I's/O's #Mild COPD Exacerbation: patient is diffusely wheezing bilaterally -duonebs -solumedrol 40mg IV push daily -O2 2L nasal cannula -CXR showed hilar congestion #Anemia: patient is anemic but now has a Hgb less than his baseline at 7.1 -stool FOBT -continue ferrous sulfate -type and screen -transfuse if Hgb < 7 #Hypertension: controlled but mildly hypertensive -restart home meds #Methadone Dependence: patient verbally states that he is on 120mg of methadone -will need to confirm methadone dosing before restarting on this dose #Hx of Lower Extremity DVT: chronic, patient has IVC filter #DM: stable -continue metformin 500 BID #FEN -not on standing fluids -replete lytes in AM -diabetic diet #Prophylaxis -heparin prophylaxis #Disposition -admit tele obs Visit type - Emergency Visit Emergency Visit: Yes Care time: The patient presented to the Emergency Department on the above date and was hospitalized for further evaluation of their emergent condition. - New Patient This patient is new to me today: Yes Date on this admission: 12/03/17 - Critical Care Critical Care patient: No Hospitalist Screening - Colonoscopy Questionnaire Colonoscopy Questionnaire: Colonoscopy Questionnaire - Patient: 50 - 75 years old and never had a screening colonoscopy: Unknown History of colon or rectal polyps, or CA: Unknown History of IBD, Crohn's disease or UC: Unknown History of abdominal radiation therapy as a child: Unknown - Relative: 1 with colon or rectal CA, or polyps at age 60 or younger: Unknown Colon or rectal CA diagnosed at age 45 or younger: Unknown Multiple relatives with colon or rectal CA: Unknown - Outcome: Screening Result: Negative Screen
--- NOTE | 2017-12-03 03:35 | PN ---
Teaching Attending Note Name of Resident: Jp Coleman ATTENDING PHYSICIAN STATEMENT I saw and evaluated the patient. Chart, data, imaging reviewed. I reviewed the resident's note and discussed the case with the resident. I agree with the resident's findings and plan as documented. SUBJECTIVE: 57-year-old male with history of hypertension, diastolic heart failure, severe pulmonary hypertension, anemia, left lower extremities DVT with pulmonary embolus status post IVC filter placement 11/2014, NIDDM, COPD, extensive smoking history c/o 2 days of increased lower extremity pain and swelling. There was no trauma to his legs. He denied taking any diuretics. Also with some exertional shortness of breath and cannot walk up more than 2 steps without feeling short of breath. OBJECTIVE: Last Vital Signs Temp Pulse Resp BP Pulse Ox 98.1 F 71 16 160/76 98 12/02/17 20:14 12/03/17 02:21 12/03/17 02:21 12/03/17 02:21 12/02/17 20:14 general -nad, aaox3 neck -no jvd cv-s1+s2+rrr chest- diffuse scant wheezing appreciated in all lung riggins abdomen -soft, nt. bs+ ext - 1+pedal edema b/l, chronic venous stasis changes, raw denuded skin on shins b/l Abnormal Lab Results 12/02/17 12/02/17 12/02/17 21:38 21:38 21:38 Hgb 7.1 L Hct 24.4 L D MCV 56.5 L MCH 16.5 L D MCHC 29.2 L RDW 19.3 H Plt Count 510 H Monocytes % 10.6 H PT with INR 13.40 H INR 1.19 H Anion Gap 7 L Random Glucose 124 H D Calcium 8.4 L AST 11 L D ALT 8 L D Alkaline Phosphatase 121 H B-Natriuretic Peptide Albumin 2.6 L 12/02/17 21:38 Hgb Hct MCV MCH MCHC RDW Plt Count Monocytes % PT with INR INR Anion Gap Random Glucose Calcium AST ALT Alkaline Phosphatase B-Natriuretic Peptide 520.37 H Albumin CXR -reviewed by me, appears to have more congested mag b/l Echo from 2016 with preserved EF ekg -reviewed, no signs of acute ischemic changes ASSESSMENT AND PLAN: 57yo man with PVD and clinical evidence of mild CHF exacerbation as evidence by pedal edema, increased pulm vascular congestion. -tele-observation -lasix 40mg IV stat and then daily -bblocker -ACEi -lower ext duplex to r/o dvt - follow up official report -i/o, daily weights -transthoracic echo -cardiology evaluation -heparin sc for dvt ppx #COPD/asthma -needs PFTs as outpatient -counseled on tobacco cessation -duonebs q6hrs -methylprednisone 40mg q24hrs #Lower ext swelling -will r/o dvt -leg elevation -compressive stockings -local wound care
[2017-12-03] MEDS ORDERED: GABAPENTIN 100 MG CAPSULE (FP) ONE ×2 (05:09→14:05)
[2017-12-03] MEDS ORDERED: HEPARIN NA (PORCINE) 5,000 UNITS/ML 1ML VIAL ONE ×2 (05:10→14:05)
[2017-12-03] MEDS: HEPARIN NA (PORCINE) 5,000 UNITS/ML 1ML VIAL SQ SCH ×3 (05:13→22:07)
[2017-12-03] MEDS: GABAPENTIN 300 MG CAPSULE (FP) PO SCH ×3 (05:14→22:06)
[2017-12-03] MEDS ORDERED: INSULIN REGULAR HUMAN 100 UNITS/ML *VIAL ONE (06:24)
[2017-12-03 06:29] LABS: HEMATOCRIT 27.5 % (35.4-49); HEMOGLOBIN 7.9 GM/dL (11.7-16.9); MCHC 28.9 g/dl (32.0-35.9); MEAN CELL VOLUME 56.3 fl (80-96); MEAN PLT VOLUME 8.2 fl (7.5-11.1); PLATELET COUNT 548 K/MM3 (134-434); RBC 4.89 M/mm3 (4.00-5.60); RDW 19.6 % (11.9-15.9); WHITE BLOOD COUNT 6.6 K/mm3 (4.0-10.0)
[2017-12-03] MEDS: INSULIN SLIDING SCALE (NOVOLOG) 1 VIAL SQ SCH ×4 (06:32→22:07)
[2017-12-03 06:43] LABS: ANION GAP 7 (8-16); BLOOD UREA NITROGEN 12 mg/dL (7-18); CALCIUM 8.8 mg/dL (8.5-10.1); CHLORIDE 103 mmol/L (98-107); CO2 27 mmol/L (21-32); GLUCOSE,RANDOM 172 mg/dL (74-106); MAGNESIUM 2.3 mg/dL (1.8-2.4); POTASSIUM 4.8 mmol/L (3.5-5.1); SODIUM 137 mmol/L (136-145)
[2017-12-03] MEDS ORDERED: metFORMIN HCL 500 MG TABLET (FP) PO SCH (07:00)
[2017-12-03 07:38] LABS: MCH 16.3 pg (25.7-33.7)
[2017-12-03 07:38] LABS: URINE APPEARANCE CLEAR; URINE BILIRUBIN NEGATIVE (<2.0 mg/dL); URINE COLOR STRAW; URINE GLUCOSE (UA) NEGATIVE (NEGATIVE); URINE KETONE NEGATIVE (NEGATIVE); URINE LEUK ESTERASE NEGATIVE (NEGATIVE); URINE NITRITE NEGATIVE (NEGATIVE); URINE PROTEIN NEGATIVE (NEGATIVE); URINE UROBILINOGEN NEGATIVE mg/dL (0.2-1.0)
[2017-12-03] MEDS ORDERED: ALBUTEROL SO4 2.5/IPRATROPIUM 0.5 INH SOL 3 ML VIAL.NEB. NEB ONE ×2 (07:41→11:15)
[2017-12-03] MEDS ORDERED: metFORMIN HCL 500 MG TABLET (FP) ONE (07:41)
[2017-12-03] MEDS: ALBUTEROL SO4 2.5/IPRATROPIUM 0.5 INH SOL 3 ML VIAL.NEB. NEB SCH ×2 (07:50→11:27)
[2017-12-03 08:31] LABS: EPI CELLS RARE /HPF (FEW); URINE MUCUS RARE
[2017-12-03] MEDS ORDERED: FERROUS SO4 325 MG TABLET (FP) ONE (08:45)
[2017-12-03] MEDS ORDERED: SILVER SULFADIAZINE 1% TOP CREAM 50 GM JAR TP ONE (08:45)
[2017-12-03] MEDS ORDERED: methylPREDNISolone NA SUCC 40 MG/1 ML VIAL ONE (08:46)
--- NOTE | 2017-12-03 09:54 | PN ---
Progress Note (short form) - Note Progress Note: Subjectivelegs feel better. has no fever or chills, denies SOB, he reports whezing inpast 3 days and increasedd swellignin legs . Not on any diuretics at home. denies any melena or hematemesis. had partial gastrectomy [id number] due to bleeding Vital Signs: Last Vital Signs Temp Pulse Resp BP Pulse Ox 97.7 F 71 20 159/78 100 12/03/17 07:25 12/03/17 07:25 12/03/17 07:25 12/03/17 07:25 12/03/17 07:29 Laboratory Results - last 24 hr 12/02/17 12/02/17 12/02/17 21:38 21:38 21:38 WBC 7.4 RBC 4.32 Hgb 7.1 L Hct 24.4 L D MCV 56.5 L MCH 16.5 L D MCHC 29.2 L RDW 19.3 H Plt Count 510 H MPV 8.6 D Absolute Neuts (auto) 5.5 Neutrophils % 74.5 D Lymphocytes % 11.9 D Monocytes % 10.6 H Eosinophils % 2.4 Basophils % 0.6 Nucleated RBC % 0 Hypochromia 3+ Platelet Estimate Increased Platelet Comment No clumping noted Anisocytosis 3+ Microcytosis 3+ Ovalocytes 2+ PT with INR 13.40 H INR 1.19 H Sodium 137 Potassium 4.5 Chloride 106 Carbon Dioxide 24 Anion Gap 7 L BUN 10 Creatinine 1.0 Creat Clearance w eGFR > 60 POC Glucometer Random Glucose 124 H D Calcium 8.4 L Magnesium 2.3 Total Bilirubin 0.2 AST 11 L D ALT 8 L D Alkaline Phosphatase 121 H Creatine Kinase 50 Troponin I < 0.02 B-Natriuretic Peptide Total Protein 7.5 Albumin 2.6 L Urine Color Urine Appearance Urine pH Ur Specific [place] Urine Protein Urine Glucose (UA) Urine Ketones Urine Blood Urine Nitrite Urine Bilirubin Urine Urobilinogen Ur Leukocyte Esterase Urine WBC (Auto) Urine RBC (Auto) Ur Epithelial Cells Urine Mucus Blood Type Antibody Screen 12/02/17 12/03/17 12/03/17 21:38 06:18 06:18 WBC 6.6 RBC 4.89 Hgb 7.9 L Hct 27.5 L MCV 56.3 L MCH 16.3 L MCHC 28.9 L RDW 19.6 H Plt Count 548 H MPV 8.2 Absolute Neuts (auto) Neutrophils % Lymphocytes % Monocytes % Eosinophils % Basophils % Nucleated RBC % Hypochromia Platelet Estimate Platelet Comment Anisocytosis Microcytosis Ovalocytes PT with INR INR Sodium 137 Potassium 4.8 Chloride 103 Carbon Dioxide 27 Anion Gap 7 L BUN 12 Creatinine 1.0 Creat Clearance w eGFR > 60 POC Glucometer Random Glucose 172 H D Calcium 8.8 Magnesium 2.3 Total Bilirubin AST ALT Alkaline Phosphatase Creatine Kinase Troponin I B-Natriuretic Peptide 520.37 H Total Protein Albumin Urine Color Urine Appearance Urine pH Ur Specific [place] Urine Protein Urine Glucose (UA) Urine Ketones Urine Blood Urine Nitrite Urine Bilirubin Urine Urobilinogen Ur Leukocyte Esterase Urine WBC (Auto) Urine RBC (Auto) Ur Epithelial Cells Urine Mucus Blood Type Antibody Screen 12/03/17 12/03/17 12/03/17 06:18 06:22 07:10 WBC RBC Hgb Hct MCV MCH MCHC RDW Plt Count MPV Absolute Neuts (auto) Neutrophils % Lymphocytes % Monocytes % Eosinophils % Basophils % Nucleated RBC % Hypochromia Platelet Estimate Platelet Comment Anisocytosis Microcytosis Ovalocytes PT with INR INR Sodium Potassium Chloride Carbon Dioxide Anion Gap BUN Creatinine Creat Clearance w eGFR POC Glucometer [id number] Random Glucose Calcium Magnesium Total Bilirubin AST ALT Alkaline Phosphatase Creatine Kinase Troponin I B-Natriuretic Peptide Total Protein Albumin Urine Color Straw Urine Appearance Clear Urine pH 5.0 D Ur Specific [place] 1.006 Urine Protein Negative Urine Glucose (UA) Negative Urine Ketones Negative Urine Blood 1+ H Urine Nitrite Negative Urine Bilirubin Negative Urine Urobilinogen Negative Ur Leukocyte Esterase Negative Urine WBC (Auto) None Urine RBC (Auto) <1 Ur Epithelial Cells Rare Urine Mucus Rare Blood Type A POSITIVE Antibody Screen Negative Physical Exam: NAD , MMM, CV: RRR, 3/6 SM at base , LLSB and apex. JVD Lungs: minimal scattered wheezes. LE: trace edema , and varicose veins. has a clean bleeding wound on each leg with no signs of infection . scarred , hyper and hypopigmented skin on legs . nof ungal infection among toes. DP 2+ b/l Assessment/Plan: 57 y/o man with h/o Drug use, HTN, D heart failure, DM , h/o GI bleed with partial gastrectomy in , DVT and PE s/p IVC filter , not on AC due to non compliance, pulm HTN, COPD , and iron def anemia who presented with SOB and worsening LE edema. He was found to have acute Diastolic heart failure 1- Acute diastolic heart failure, not on any diuretics at home, and no card f/ u. now sx improved - cont lasix daily - echo - last echo in 2016 reviewed. - cont BB - he has minimal scattered wheezing, which could be due to pulmonary edema. dc IV steroids and reevaluate. if no improvement with diuresis will resume steroids 2- Microcytic anemia : likely slow GI bleed . ? source. has partial gastrectomy due to upper GI bleed. iron studies in 2016 showed iron def anemia. - repeat iron studies - FOBT - if HB remains < 8 will transfuse RBC - no evidence of acute bleed - GI f/u as out pt 3- LE wounds: no evidence of infection . DP 2+ - apply silvadine and clean gauze 4- h/o DVT , PE : not on AC due to non compliance. has IVC filter . 5- DM : dc metformin and cont SSI 6- h/o opioid abuse: cont methadone . 7- prolonged QTC 502, due to methadone . monitor . avoid other QT prolonging meds all meds confirmed DVT Px Visit type - Emergency Visit Emergency Visit: Yes ED Registration Date: 12/03/17 Care time: The patient presented to the Emergency Department on the above date and was hospitalized for further evaluation of their emergent condition. - New Patient This patient is new to me today: Yes Date on this admission: 12/03/17 - Critical Care Critical Care patient: No
[2017-12-03] MEDS ORDERED: FUROSEMIDE 40 MG/4 ML INJECTABLE VIAL ONE (09:57)
[2017-12-03] MEDS ORDERED: METHADONE HCL 40 MG DISPERSABLE TABLET ONE (09:57)
[2017-12-03] MEDS ORDERED: FUROSEMIDE 40 MG/4 ML INJECTABLE VIAL IVPUSH SCH (10:00)
[2017-12-03] MEDS ORDERED: SILVER SULFADIAZINE 1% TOP CREAM 400 GM JAR TP SCH (10:00)
[2017-12-03] MEDS ORDERED: metoPROLOL SUCCINATE 25 MG TAB.SR.24H (FP) PO SCH (10:00)
[2017-12-03] MEDS ORDERED: FERROUS SO4 325 MG TABLET (FP) PO SCH (10:00)
[2017-12-03] MEDS: METHADONE HCL 40 MG DISPERSABLE TABLET PO ONE ×2 (10:01→11:02)
[2017-12-03] MEDS ORDERED: INSULIN (NOVOLOG) ASPART 100 UNITS/ML 10ML VIAL ONE ×2 (11:21→18:35)
--- NOTE | 2017-12-03 14:01 | CON.CARD ---
Consult Consult Specialty:: Cardiology Reason for Consultation:: CHF - History of Present Illness History of Present Illness: 57 M with ho chronic DVT, PE sp IVC filter and not on AC due to compliance. He has a remote ho partial gastrectomy. Admitted with leg swelling and pain. There is chronic dyspnea on effort but no cough, orthopnea. He had an echocardiogram in 2015 showing normal LV function with moderate MR/AR and moderate pulmonary artery HTN. At that time was treated for diastolic heart failure. A stress test in 2014 showed normal perfusion. He is comfortable. - History Source History Provided By: Patient, Medical Record Limitations to Obtaining History: No Limitations - Past Medical History Cardio/Vascular: Yes: CHF, Deep Vein Thrombosis, HTN, Pulmonary Hypertension Infectious Disease: Yes: Other (recurrent RLE cellulitis) Psych: Yes: Addictions (hx heroin absue (snorted), quit 2yrs ago, now on methadone) Endocrine: Yes: Diabetes Mellitus Dermatology: Yes: Cellulitis, Other (chronic venous stasis) - Past Surgical History Past Surgical History: Yes: Appendectomy - Alcohol/Substance Use Hx Alcohol Use: No History of Substance Use: reports: Heroin (snorted heroin x 3yrs, quit 2yrs ago) , Marijuana - Smoking History Smoking history: Current every day smoker Have you smoked in the past 12 months: Yes Aproximately how many cigarettes per day: 8 If you are a former smoker, when did you quit?: 10/20/2014 - Social History Occupation: retired [employer] worker Home Medications - Allergies Allergies/Adverse Reactions: Allergies Allergy/AdvReac Type Severity Reaction Status Date / Time clarithromycin [From Biaxin] Allergy Hives Verified 12/02/17 20:12 codeine Allergy Hives Verified 12/02/17 20:12 Penicillins Allergy Hives Verified 12/02/17 20:12 - Home Medications Home Medications: Ambulatory Orders Methadone [Dolophine -] 120 mg PO DAILY 03/13/16 metFORMIN HCL [Metformin HCl] 500 mg PO BID #60 tablet 03/21/16 Ferrous Sulfate [Feosol] 400 mg PO BID 09/23/16 Silver Sulfadiazine 1% Top Cr [Silvadene -] 1 applic TP PRN 09/23/16 Metoprolol Succinate [Toprol XL -] 25 mg PO DAILY 11/10/16 Family Disease History - Family Disease History Family Disease History: CA: Grandparent (paternal: colon cancer), Father (colon cancer ), Other: Mother (emphysema ) Review of Systems - Review of Systems Constitutional: denies: Chills, Diaphoresis, Fever, Lethargy, Loss of Appetite Eyes: reports: No Symptoms HENT: denies: Difficult Swallowing, Gingival Bleeding, Hearing Loss Neck: denies: Decreased ROM, Lumps, Pain on Movement Cardiovascular: reports: Edema, Shortness of Breath. denies: Chest Pain, Palpitations Respiratory: reports: Exercise Intolerance, SOB on Exertion. denies: Cough, Wheezing Gastrointestinal: denies: Abdominal Pain, Bloating, Constipation, Indigestion Musculoskeletal: reports: No Symptoms Vital Signs: Vital Signs Temperature 97.7 F 12/03/17 11:25 Pulse Rate 87 12/03/17 11:25 Respiratory Rate 20 12/03/17 07:25 Blood Pressure 153/71 12/03/17 11:25 O2 Sat by Pulse Oximetry (%) 99 12/03/17 11:25 Constitutional: Yes: No Distress, Calm, Thin Eyes: Yes: Conjunctiva Clear, EOM Intact HENT: Yes: Atraumatic, Normocephalic Neck: Yes: Supple, Trachea Midline Respiratory: Yes: Regular, CTA Bilaterally Gastrointestinal: Yes: Normal Bowel Sounds, Soft Cardiovascular: Yes: Regular Rate and Rhythm JVD: No Carotid Bruit: No Heart Sounds: Yes: S1, S2 Murmur: Yes: Systolic Murmur (2/6 LLSB) Edema: Yes Edema: LLE: 2+, RLE: 2+ - Other Data Labs, Other Data: CBC, BMP 12/03/17 06:18 12/03/17 06:18 INR, PTT INR 1.19 (0.82-1.09) H 12/02/17 21:38 Troponin, BNP 12/02/17 12/02/17 21:38 21:38 Troponin I < 0.02 B-Natriuretic Peptide 520.37 H Troponin, BNP 12/02/17 12/02/17 21:38 21:38 Troponin I < 0.02 B-Natriuretic Peptide 520.37 H NSR no STT Changes Imaging - Results Chest X-ray: Report Reviewed Problem List - Problems (1) CHF (congestive heart failure) Code(s): I50.9 - HEART FAILURE, UNSPECIFIED (2) DVT (deep venous thrombosis) Code(s): I82.409 - ACUTE EMBOLISM AND THOMBOS UNSP DEEP VN UNSP LOWER EXTREMITY Qualifiers: DVT location: lower extremity Affected thrombotic vein of extremity: unspecified vein of extremity Assessment/Plan 57 yo M with chronic Lext swelling and ulceration with a chronic DVT on the left, sp IVC filter and ho PE. He had moderate pulmonary HTN on prior echocardiogram. Possibly mildly volume overloaded. Has chronic edema due to prior IVC and chronic DVT. Continue with short course of IV diuretics and then convert to oral therapy. Consider vascular consultation and wound eval to see if he is a candidate for Lext compression/ESTRELLITA boot treatment. Ho moderate pulm HTN and prior PE raises concern for chronic thromboembolic Pulm HTN. will check echocardiogram.
--- NOTE | 2017-12-03 14:16 | EKG ---
Test Reason : Blood Pressure : / mmHG Vent. Rate : 082 BPM Atrial Rate : 082 BPM P-R Int : 132 ms QRS Dur : 084 ms QT Int : 430 ms P-R-T Axes : 078 033 052 degrees QTc Int : 502 ms SINUS RHYTHM WITH PREMATURE SUPRAVENTRICULAR COMPLEXES PROLONGED QT ABNORMAL ECG WHEN COMPARED WITH ECG OF 23-SEP-2016 14:26, PREMATURE SUPRAVENTRICULAR COMPLEXES ARE NOW PRESENT Confirmed by Theron Segovia ([id number]) on 12/03/2017 2:16:22 PM Referred By: Confirmed By:Theron Segovia
[2017-12-03] MEDS: FERROUS SO4 325 MG TABLET (FP) PO SCH (22:06)
[2017-12-04] MEDS ORDERED: METHADONE HCL 40 MG DISPERSABLE TABLET PO SCH (06:00)
[2017-12-04] MEDS: INSULIN SLIDING SCALE (NOVOLOG) 1 VIAL SQ SCH ×4 (06:10→21:21)
[2017-12-04] MEDS: METHADONE HCL 40 MG DISPERSABLE TABLET PO SCH (06:11)
[2017-12-04] MEDS: HEPARIN NA (PORCINE) 5,000 UNITS/ML 1ML VIAL SQ SCH ×3 (06:11→21:18)
[2017-12-04] MEDS: GABAPENTIN 300 MG CAPSULE (FP) PO SCH ×3 (06:12→21:18)
[2017-12-04 07:22] LABS: BASO % 0.3 % (0-2.0); EOS % 0.2 % (0-4.5); HEMATOCRIT 25.4 % (35.4-49); HEMOGLOBIN 7.3 GM/dL (11.7-16.9); LYMPH % 17.5 % (8-40); MCHC 28.7 g/dl (32.0-35.9); MEAN CELL VOLUME 56.2 fl (80-96); MEAN PLT VOLUME 8.3 fl (7.5-11.1); PLATELET COUNT 631 K/MM3 (134-434); RBC 4.52 M/mm3 (4.00-5.60); RDW 19.1 % (11.9-15.9); WHITE BLOOD COUNT 13.3 K/mm3 (4.0-10.0)
[2017-12-04 07:29] LABS: MCH 16.1 pg (25.7-33.7)
[2017-12-04] MEDS: ALBUTEROL SO4 2.5/IPRATROPIUM 0.5 INH SOL 3 ML VIAL.NEB. NEB SCH ×6 (07:35→20:40)
[2017-12-04 07:37] LABS: ANION GAP 8 (8-16); BLOOD UREA NITROGEN 37 mg/dL (7-18); CALCIUM 9.1 mg/dL (8.5-10.1); CHLORIDE 100 mmol/L (98-107); CO2 27 mmol/L (21-32); CREATININE 1.4 mg/dL (0.7-1.3); GLUCOSE,RANDOM 100 mg/dL (74-106); POTASSIUM 4.7 mmol/L (3.5-5.1); SODIUM 135 mmol/L (136-145)
--- NOTE | 2017-12-04 08:47 | PN ---
Physical Exam: SUBJECTIVE: 57-year-old male with history of hypertension, diastolic heart failure, severe pulmonary hypertension, anemia, left lower extremities DVT with pulmonary embolus status post IVC filter placement 11/2014, NIDDM, COPD who is admitted for CHF exacerbation. Patient had no acute events overnight. Patient complains of leg pain at the site of his ulcers. OBJECTIVE: Vital Signs Period Temp Pulse Resp BP Sys/Bethea Pulse Ox Last 24 Hr 97.7 F-98.7 F 76-94 18-18 124-153/71-92 97-100 GENERAL: The patient is awake, alert, and fully oriented, in no acute distress. EYES: PERRL, extraocular movements intact, sclera anicteric, LUNGS: eExpiratory wheezes HEART: Regular rate 3+ systolic murmur heard best at sternal border ABDOMEN: Soft, nontender, nondistended, normoactive bowel sounds EXTREMITIES: 2+ PT pulses B/L, shallow clean ulcerations bilaterally, left leg anterior river 10x5, right leg anterior river wrapping around to posterior of leg , +2 edema B/L PSYCH: Normal mood, normal affect. Laboratory Results - last 24 hr 12/03/17 12/03/17 12/03/17 07:10 11:17 17:06 WBC RBC Hgb Hct MCV MCH MCHC RDW Plt Count MPV Absolute Neuts (auto) Neutrophils % Lymphocytes % Monocytes % Eosinophils % Basophils % Nucleated RBC % Sodium Potassium Chloride Carbon Dioxide Anion Gap BUN Creatinine Creat Clearance w eGFR POC Glucometer [phone] Random Glucose Calcium Urine WBC (Auto) None Urine RBC (Auto) <1 Ur Epithelial Cells Rare Urine Mucus Rare 12/03/17 12/04/17 12/04/17 22:05 06:09 06:20 WBC 13.3 H RBC 4.52 Hgb 7.3 L Hct 25.4 L MCV 56.2 L MCH 16.1 L MCHC 28.7 L RDW 19.1 H Plt Count 631 H MPV 8.3 Absolute Neuts (auto) 9.8 Neutrophils % 74.0 Lymphocytes % 17.5 D Monocytes % 8.0 Eosinophils % 0.2 D Basophils % 0.3 Nucleated RBC % 0 Sodium Potassium Chloride Carbon Dioxide Anion Gap BUN Creatinine Creat Clearance w eGFR POC Glucometer 131 151 Random Glucose Calcium Urine WBC (Auto) Urine RBC (Auto) Ur Epithelial Cells Urine Mucus 12/04/17 06:20 WBC RBC Hgb Hct MCV MCH MCHC RDW Plt Count MPV Absolute Neuts (auto) Neutrophils % Lymphocytes % Monocytes % Eosinophils % Basophils % Nucleated RBC % Sodium 135 L Potassium 4.7 Chloride 100 Carbon Dioxide 27 Anion Gap 8 BUN 37 H D Creatinine 1.4 H Creat Clearance w eGFR 52.05 POC Glucometer Random Glucose 100 D Calcium 9.1 Urine WBC (Auto) Urine RBC (Auto) Ur Epithelial Cells Urine Mucus Active Medications Generic Name Dose Route Start Last Admin Trade Name Albert PRN Reason Stop Dose Admin Albuterol/Ipratropium 1 amp 12/03/17 20:00 Duoneb - NEB RQID RANJIT Ferrous Sulfate 325 mg 12/03/17 22:00 12/03/17 22:06 Feosol - PO 325 mg BID RANJIT Administration Furosemide 40 mg 12/04/17 10:00 Lasix Injection - IVPUSH DAILY RANJIT Gabapentin 300 mg 12/03/17 22:00 12/04/17 06:12 Neurontin - PO 300 mg TID RANJIT Administration Heparin Sodium (Porcine) 5,000 unit 12/03/17 22:00 12/04/17 06:11 Heparin - SQ 5,000 unit TID RANIJT Administration Insulin Aspart 1 vial 12/03/17 22:00 12/04/17 06:10 Novolog Vial Sliding Scale - SQ 2 units ACHS RANJIT Administration Protocol Methadone HCl 120 mg 12/04/17 06:00 12/04/17 06:11 Dolophine - PO 120 mg DAILY@0600 RANJIT Administration Metoprolol Succinate 25 mg 12/04/17 10:00 Toprol Xl - PO DAILY [facility] Silver Sulfadiazine 1 applic 12/04/17 10:00 Silvadene - TP DAILY [facility] ASSESSMENT/PLAN: 57-year-old male with history of hypertension, diastolic heart failure, severe pulmonary hypertension, anemia, left lower extremities DVT with pulmonary embolus status post IVC filter placement 11/2014, NIDDM, COPD who is admitted for CHF exacerbation. Received one unit PRBC today. #acute diastolic dysfunction - last echo EF of 60% - f/u echo - lasix 40 mg - daily weights - I's & O's #chronic Lextremity swelling and chronic DVT R leg - DVT US showed chronic DVT in R leg with uncertain acute on chronicity - managed by wound care - pt to f/u with wound care out patient to see if he is candidate for leg compression/ESTRELLITA boot treatment - continue compression for now with silvadene #Anemia - HGB; 7.3, baseline ~9 - transfused 1 unit PRBC, - continue Fesol 325 mg BID - Consulted Dr. Le - consulted GI, pt has history of gastrectomy - microcytic anemia, f/u iron studies #COPD -duonebs as needed #HTN - continue toprolol #substance abuse -methadone 120 mg #DM - SS -neurontin TID #DVT ppx: -heparin TID Dispo: Visit type - Emergency Visit Emergency Visit: No - New Patient This patient is new to me today: Yes Date on this admission: 12/04/17 - Critical Care Critical Care patient: No
--- NOTE | 2017-12-04 09:37 | CONSULT ---
- Consultation REQUESTING PROVIDER: CONSULT REQUEST: We have been asked to surgically evaluate this patient for b/l venous stasis ulcers and LLE chronic DVT. PCP:Tessie Nino HISTORY OF PRESENT ILLNESS: 57yo M h/o chronic b/l venous stasis ulcers and LLE DVT. Pt states that he has had his venous stasis ulcers for several years, that he used to go to the wound clinic for treatment, but has not gone for several months. Pt states that he does his own dressing and wears compression stockings at home though. Pt also has had LLE chronic DVT since at least 2014 with history of PE s/p IVC filter placement. Pt appears to be noncompliant with anticoagulation is not currently on any medications. Pt was admitted for worsening leg pain and CHF exacerbation. PMHx: CHF, pulmonary HTN, DM, HTN Home Medications Medication Instructions Recorded Methadone [Dolophine -] 120 mg PO DAILY 03/13/16 metFORMIN HCL [Metformin HCl] 500 mg PO BID #60 tablet 03/21/16 Ferrous Sulfate [Feosol] 400 mg PO BID 09/23/16 Silver Sulfadiazine 1% Top Cr 1 applic TP PRN 09/23/16 [Silvadene -] Metoprolol Succinate [Toprol XL -] 25 mg PO DAILY 11/10/16 Allergies Allergy/AdvReac Type Severity Reaction Status Date / Time clarithromycin [From Biaxin] Allergy Hives Verified 12/02/17 20:12 codeine Allergy Hives Verified 12/02/17 20:12 Penicillins Allergy Hives Verified 12/02/17 20:12 REVIEW OF SYSTEMS: CONSTITUTIONAL: Absent: fever, chills, diaphoresis, generalized weakness, malaise CARDIOVASCULAR: Absent: chest pain, syncope, palpitations, irregular heart rate, lightheadedness , peripheral edema MUSCULOSKELETAL: Absent: myalgia, arthralgia, b/l foot numbness, and lower leg pain SKIN: b/l swelling and wounds on both legs Absent: rash, itching, pallor HEMATOLOGIC/IMMUNOLOGIC: Absent: easy bleeding, easy bruising, lymphadenopathy PSYCHIATRIC: Absent: anxiety, depression, suicidal or homicidal ideation, hallucinations. PHYSICAL EXAM: GENERAL: Awake, alert, and fully oriented, in no acute distress. HEAD: Normal with no signs of trauma. EYES: PERRL, sclera anicteric, conjunctiva clear. HEART: Regular rate and rhythm. No murmurs MUSCULOSKELETAL: Normal ROM at all joints. No bony deformities or tenderness. No CVA tenderness. UPPER EXTREMITIES: 2+ pulses, warm, well-perfused. No cyanosis. Cap refill <2 seconds. No peripheral edema. LOWER EXTREMITIES: 2+ pulses, warm, well-perfused. RLE shows nearly circumferential venous stasis ulcers about 5 cm wide, no erythema or discharge, LLE shows 10 x 5 cm venous stasis ulcer on anterior river, +2 edema b/l. NEUROLOGICAL: Normal speech, gait not observed. PSYCH: Cooperative. Good eye contact. Appropriate mood and affect. Vital Signs Temperature 98.8 F 12/04/17 09:22 Pulse Rate 82 12/04/17 09:22 Respiratory Rate 18 12/04/17 09:22 Blood Pressure 146/91 12/04/17 09:22 O2 Sat by Pulse Oximetry (%) 98 12/03/17 21:00 Lab Results WBC 13.3 K/mm3 (4.0-10.0) H 12/04/17 06:20 RBC 4.52 M/mm3 (4.00-5.60) 12/04/17 06:20 Hgb 7.3 GM/dL (11.7-16.9) L 12/04/17 06:20 Hct 25.4 % (35.4-49) L 12/04/17 06:20 MCV 56.2 fl (80-96) L 12/04/17 06:20 MCHC 28.7 g/dl (32.0-35.9) L 12/04/17 06:20 RDW 19.1 % (11.9-15.9) H 12/04/17 06:20 Plt Count 631 K/MM3 (134-434) H 12/04/17 06:20 Sodium 135 mmol/L (136-145) L 12/04/17 06:20 Potassium 4.7 mmol/L (3.5-5.1) 12/04/17 06:20 Chloride 100 mmol/L (98-107) 12/04/17 06:20 Carbon Dioxide 27 mmol/L (21-32) 12/04/17 06:20 Anion Gap 8 (8-16) 12/04/17 06:20 BUN 37 mg/dL (7-18) H D 12/04/17 06:20 Creatinine 1.4 mg/dL (0.7-1.3) H 12/04/17 06:20 Random Glucose 100 mg/dL (74-106) D 12/04/17 06:20 Calcium 9.1 mg/dL (8.5-10.1) 12/04/17 06:20 Blood Type A POSITIVE 12/03/17 06:18 Antibody Screen Negative 12/03/17 06:18 INR 1.19 (0.82-1.09) H 12/02/17 21:38 Problem List - Problems (1) Ulcers of both lower legs Assessment/Plan: Plan -treatment of venous stasis ulcer with compression dressing with silvadene -DVT appears chronic in nature nothing to be done from vascular surgery standpoint. -pt should follow with wound care clinic once discharged from hospital Case discussed with Dr. Kirby who agrees with plan Code(s): L97.919 - NON-PRS CHRONIC ULC UNSP PRT OF R LOW LEG W UNSP SEVERITY; L97.929 - NON-PRS CHRONIC ULC UNSP PRT OF L LOW LEG W UNSP SEVERITY
[2017-12-04] MEDS ORDERED: FUROSEMIDE 40 MG/4 ML INJECTABLE VIAL IVPUSH SCH (10:00)
[2017-12-04] MEDS: metoPROLOL SUCCINATE 25 MG TAB.SR.24H (FP) PO SCH (10:45)
[2017-12-04] MEDS: FERROUS SO4 325 MG TABLET (FP) PO SCH ×2 (10:45→21:18)
--- NOTE | 2017-12-04 12:18 | PN ---
Teaching Attending Note Name of Resident: Lynne Curry ATTENDING PHYSICIAN STATEMENT I saw and evaluated the patient. I reviewed the resident's note and discussed the case with the resident. I agree with the resident's findings and plan as documented. SUBJECTIVE: still SOB when he walks. No fever ro chills, ambulating fine. LE edema better . OBJECTIVE: NAD, MMM CV: RRR, 3/6 SM at base , LLSB and apex. Lungs: minimal scattered wheezes. No crackles LE: trace edema, and varicose veins. has a clean non-bleeding wounds on each leg with no signs of infection . scarred , hyper and hypopigmented skin on legs . . DP 2+ b/l Assessment/Plan: 57 y/o man with h/o Drug use, HTN, D heart failure, DM , h/o GI bleed with partial gastrectomy in 1980s, DVT and PE s/p IVC filter , not on AC due to non compliance, pulm HTN, COPD , and iron def anemia who presented with SOB and worsening LE edema. He was found to have acute Diastolic heart failure 1- Acute diastolic heart failure, sx are better and weight has decreased. Cr started to rise though. - change diuresis to po in the setting of worsening renal function . - echo is pending - cont BB 2- Microcytic anemia : likely slow GI bleed . could be upper as he had partial gastrectomy for upper GI bleed before. ferritin is 7.1 indicating iron def, TIBC/iron pending . -transfuse 1 unit - GI eval . ? EGD. 3- LE wounds: no evidence of infection. DP 2+ - apply silvadine and clean gauze - f/u in wound clinic 4- h/o DVT , PE : not on AC due to non compliance. has IVC filter . 5- DM : cont SSI 6- h/o COPD. has some wheezes . will monitor on DUonebs. if con to be SOB on diurestics and cont to wheeze, then might use steroids 7- h/o opioid abuse: cont methadone . 8- prolonged QTC 502, due to methadone . monitor . avoid other QT prolonging meds
--- NOTE | 2017-12-04 15:44 | CON.GI ---
Consult Consult Specialty:: GI Reason for Consultation:: Anemia - History of Present Illness History of Present Illness: Chart reviewed. Events noted. Cardiology evaluation noted. Per initial intake: 57-year-old male with history of hypertension, diastolic heart failure, severe pulmonary hypertension, anemia, left lower extremities DVT with pulmonary embolus status post IVC filter placement 11/2014, NIDDM, COPD presents emergency Department with 2 weeks of worsening bilateral leg pain and swelling. Patient reports that he has also been progressively short of breath on exertion over the last two weeks. He states that he is unable to walk more than 2 blocks and cannot walk up 2-3 stairs without becoming short of breath. He states that he sleeps sitting up because he is short of breath when laying down flat. Reports that his legs are burning and have decreased sensation. states that he follows closely with wound care at [facility] and has been putting dressings on his legs appropriately. Denies chest pain, fevers, chills, nausea, vomiting, diarrhea. Hx of partial gastrectomy for "bleeding ulcers" in 80s. No history of EGD since then. Never had colonoscopy. Hgb ranges between 10 and 7 since 2016. Takes Iron at home. Not on any anti-acid regiment. Deneis dyspepsia, dysphagia, odynophagia , melena, hematochezia, hematemesis. No stigmata of GI bleeding while hospitalized. - Past Medical History Cardio/Vascular: Yes: CHF, Deep Vein Thrombosis, HTN, Pulmonary Hypertension Infectious Disease: Yes: Other (recurrent RLE cellulitis) Psych: Yes: Addictions (hx heroin absue (snorted), quit 2yrs ago, now on methadone) Endocrine: Yes: Diabetes Mellitus Dermatology: Yes: Cellulitis, Other (chronic venous stasis) - Past Surgical History Past Surgical History: Yes: Appendectomy - Alcohol/Substance Use Hx Alcohol Use: No History of Substance Use: reports: Heroin (snorted heroin x 3yrs, quit 2yrs ago) , Marijuana - Smoking History Smoking history: Current every day smoker Have you smoked in the past 12 months: Yes Aproximately how many cigarettes per day: 8 If you are a former smoker, when did you quit?: 10/20/2014 - Social History Occupation: retired [employer] worker Home Medications - Allergies Allergies/Adverse Reactions: Allergies Allergy/AdvReac Type Severity Reaction Status Date / Time clarithromycin [From Biaxin] Allergy Hives Verified 12/02/17 20:12 codeine Allergy Hives Verified 12/02/17 20:12 Penicillins Allergy Hives Verified 12/02/17 20:12 - Home Medications Home Medications: Ambulatory Orders Methadone [Dolophine -] 120 mg PO DAILY 03/13/16 metFORMIN HCL [Metformin HCl] 500 mg PO BID #60 tablet 03/21/16 Ferrous Sulfate [Feosol] 400 mg PO BID 09/23/16 Silver Sulfadiazine 1% Top Cr [Silvadene -] 1 applic TP PRN 09/23/16 Metoprolol Succinate [Toprol XL -] 25 mg PO DAILY 11/10/16 Family Disease History - Family Disease History Family Disease History: CA: Grandparent (paternal: colon cancer), Father (colon cancer ), Other: Mother (emphysema ) Review of Systems Findings/Remarks: as per HPI, H&P. ED Physical Exam-GI Vital Signs: Vital Signs Temperature 98.8 F 12/04/17 09:22 Pulse Rate 82 12/04/17 09:22 Respiratory Rate 18 12/04/17 09:22 Blood Pressure 146/91 12/04/17 09:22 O2 Sat by Pulse Oximetry (%) 98 12/03/17 21:00 Constitutional: Yes: Calm, Anxious Eyes: No: Sclera Icterus HENT: Yes: Atraumatic Neck: Yes: Supple Cardiovascular: No: Bradycardia, Tachycardia Respiratory: Yes: Tachypnea Gastrointestinal Inspection: No: Ascites, Distention ...Auscultate: Yes: Normoactive Bowel Sounds ...Palpate: Yes: Soft. No: Firm/Rigid, Guarding, Mass, Tenderness, Tenderness, Epigastium, Tenderness, Rebound ...Rectal Exam: Yes: Deferred (to lab-based hemoccult test) Neurological: Yes: Alert, Oriented Labs: CBC, BMP 12/04/17 06:20 12/04/17 06:20 INR, PTT INR 1.19 (0.82-1.09) H 12/02/17 21:38 Laboratory Last Values WBC 13.3 K/mm3 (4.0-10.0) H 12/04/17 06:20 RBC 4.52 M/mm3 (4.00-5.60) 12/04/17 06:20 Hgb 7.3 GM/dL (11.7-16.9) L 12/04/17 06:20 Hct 25.4 % (35.4-49) L 12/04/17 06:20 MCV 56.2 fl (80-96) L 12/04/17 06:20 MCH 16.1 pg (25.7-33.7) L 12/04/17 06:20 MCHC 28.7 g/dl (32.0-35.9) L 12/04/17 06:20 RDW 19.1 % (11.9-15.9) H 12/04/17 06:20 Plt Count 631 K/MM3 (134-434) H 12/04/17 06:20 MPV 8.3 fl (7.5-11.1) 12/04/17 06:20 Absolute Neuts (auto) 9.8 # 12/04/17 06:20 Neutrophils % 74.0 % (42.8-82.8) 12/04/17 06:20 Lymphocytes % 17.5 % (8-40) D 12/04/17 06:20 Monocytes % 8.0 % (3.8-10.2) 12/04/17 06:20 Eosinophils % 0.2 % (0-4.5) D 12/04/17 06:20 Basophils % 0.3 % (0-2.0) 12/04/17 06:20 Nucleated RBC % 0 % (0-0) 12/04/17 06:20 Hypochromia 3+ 12/02/17 21:38 Platelet Estimate Increased 12/02/17 21:38 Platelet Comment No clumping noted 12/02/17 21:38 Anisocytosis 3+ 12/02/17 21:38 Microcytosis 3+ 12/02/17 21:38 Ovalocytes 2+ 12/02/17 21:38 PT with INR 13.40 SEC (9.7-13.0) H 12/02/17 21:38 INR 1.19 (0.82-1.09) H 12/02/17 21:38 Sodium 135 mmol/L (136-145) L 12/04/17 06:20 Potassium 4.7 mmol/L (3.5-5.1) 12/04/17 06:20 Chloride 100 mmol/L (98-107) 12/04/17 06:20 Carbon Dioxide 27 mmol/L (21-32) 12/04/17 06:20 Anion Gap 8 (8-16) 12/04/17 06:20 BUN 37 mg/dL (7-18) H D 12/04/17 06:20 Creatinine 1.4 mg/dL (0.7-1.3) H 12/04/17 06:20 Creat Clearance w eGFR 52.05 (>60) 12/04/17 06:20 POC Glucometer 199 UNITS (80-120) 12/04/17 10:28 Random Glucose 100 mg/dL (74-106) D 12/04/17 06:20 Calcium 9.1 mg/dL (8.5-10.1) 12/04/17 06:20 Magnesium 2.3 mg/dL (1.8-2.4) 12/03/17 06:18 Ferritin 7.1 ng/ml (16.4-293.9) L 12/04/17 06:20 Total Bilirubin 0.2 mg/dL (0.2-1.0) 12/02/17 21:38 AST 11 U/L (15-37) L D 12/02/17 21:38 ALT 8 U/L (12-78) L D 12/02/17 21:38 Alkaline Phosphatase 121 U/L (45-117) H 12/02/17 21:38 Creatine Kinase 50 IU/L (39-308) 12/02/17 21:38 Troponin I < 0.02 ng/ml (0.00-0.05) 12/02/17 21:38 B-Natriuretic Peptide 520.37 pg/ml (5-125) H 12/02/17 21:38 Total Protein 7.5 g/dl (6.4-8.2) 12/02/17 21:38 Albumin 2.6 g/dl (3.4-5.0) L 12/02/17 21:38 Urine Color Straw 12/03/17 07:10 Urine Appearance Clear 12/03/17 07:10 Urine pH 5.0 (5.0-8.0) D 12/03/17 07:10 Ur Specific [place] 1.006 (1.001-1.035) 12/03/17 07:10 Urine Protein Negative (NEGATIVE) 12/03/17 07:10 Urine Glucose (UA) Negative (NEGATIVE) 12/03/17 07:10 Urine Ketones Negative (NEGATIVE) 12/03/17 07:10 Urine Blood 1+ (NEGATIVE) H 12/03/17 07:10 Urine Nitrite Negative (NEGATIVE) 12/03/17 07:10 Urine Bilirubin Negative (<2.0 mg/dL) 12/03/17 07:10 Urine Urobilinogen Negative mg/dL (0.2-1.0) 12/03/17 07:10 Ur Leukocyte Esterase Negative (NEGATIVE) 12/03/17 07:10 Urine WBC (Auto) None /hpf (3-5) 12/03/17 07:10 Urine RBC (Auto) <1 /hpf (0-3) 12/03/17 07:10 Ur Epithelial Cells Rare /HPF (FEW) 12/03/17 07:10 Urine Mucus Rare 12/03/17 07:10 Blood Type A POSITIVE 12/03/17 06:18 Antibody Screen Negative 12/03/17 06:18 Crossmatch See Detail 12/03/17 06:18 Problem List - Problems (1) Microcytic anemia Code(s): D50.9 - IRON DEFICIENCY ANEMIA, UNSPECIFIED (2) Pulmonary hypertension Code(s): I27.20 - PULMONARY HYPERTENSION, UNSPECIFIED (3) CHF (congestive heart failure) Code(s): I50.9 - HEART FAILURE, UNSPECIFIED (4) Anemia Code(s): D64.9 - ANEMIA, UNSPECIFIED Qualifiers: (5) DVT (deep venous thrombosis) Code(s): I82.409 - ACUTE EMBOLISM AND THOMBOS UNSP DEEP VN UNSP LOWER EXTREMITY Qualifiers: DVT location: lower extremity Affected thrombotic vein of extremity: unspecified vein of extremity Assessment/Plan A 57M with multiple, significant comorbidities, prior history of gastric ulcers s/p partial gastrectomy, and chronic, micorcytic, multifactorial nemia w/o stigmata of recent, or ongoing significant GI bleeding. The pt will need EGD and colonoscopy to evaluate, or r/o GI causes of anemia s. a. colorectal neoplasm, marginal ulcers, esophagitis, gastritis, angiectasias, colitis, etc. Plan for endoscopic work up when and if cleared from cardiovascular stand point. Recommend once daily oral PPI, Iron profile, LDH, haptoglobin and diet as tolerated for now. WIll follow. Discussed with the patient and his nurse.
[2017-12-04] MEDS: SILVER SULFADIAZINE 1% TOP CREAM 400 GM JAR TP SCH (15:57)
--- NOTE | 2017-12-04 16:51 | PN ---
Progress Note, Physician Chief Complaint: Patient appears comfortable. He has no chest pain, SOB at rest or palpitation. History of Present Illness: 57 year-old man with a PMHx of chronic DVT, PE s/p IVC filter and not on AC due to compliance. He has a remote history of partial gastrectomy admitted 2017 with leg swelling and pain. The patient has chronic dyspnea on effort but no cough, orthopnea. He had an echocardiogram in 2015 showing normal LV function with moderate MR/AR and moderate pulmonary artery HTN. At that time was treated for diastolic heart failure. A stress test in 2014 showed normal perfusion. ECG 12/02/2017 showed sinus rhythm with mild QT prolongation. He received blood transfusion for severe anemia. - Current Medication List Current Medications: Active Medications Albuterol/Ipratropium (Duoneb -) 1 amp NEB RQID [facility] Last Admin: 12/04/17 15:50 Dose: 1 amp Ferrous Sulfate (Feosol -) 325 mg PO BID [facility] Last Admin: 12/04/17 10:45 Dose: 325 mg Furosemide (Lasix -) 40 mg PO DAILY [facility] Gabapentin (Neurontin -) 300 mg PO TID [facility] Last Admin: 12/04/17 15:58 Dose: 300 mg Heparin Sodium (Porcine) (Heparin -) 5,000 unit SQ TID [facility] Last Admin: 12/04/17 15:58 Dose: 5,000 unit Insulin Aspart (Novolog Vial Sliding Scale -) 1 vial SQ ACHS [facility]; Protocol Last Admin: 12/04/17 12:49 Dose: 2 units Methadone HCl (Dolophine -) 120 mg PO DAILY@0600 [facility] Last Admin: 12/04/17 06:11 Dose: 120 mg Metoprolol Succinate (Toprol Xl -) 25 mg PO DAILY [facility] Last Admin: 12/04/17 10:45 Dose: 25 mg Silver Sulfadiazine (Silvadene -) 1 applic TP DAILY [facility] Last Admin: 12/04/17 15:57 Dose: 1 applic - Objective Vital Signs: Vital Signs Temperature 98.8 F 12/04/17 09:22 Pulse Rate 82 12/04/17 09:22 Respiratory Rate 18 12/04/17 09:22 Blood Pressure 146/91 12/04/17 09:22 O2 Sat by Pulse Oximetry (%) 98 12/04/17 09:00 General: Well developed. Well nourished. No acute distress. Head: Normocephalic. Atraumatic, Eyes: PERRLA, EOMI. Sclerae anicteric. Conjunctivae clear, pale. Neck: Supple. No JVD. No bruits. Heart: Normal S1, S2: Regularly regular rhythm and rate. II/ KARLA and II/ HSM. Lungs: Symmetrical air entry. Clear to auscultation. No crackle. No wheezing or rhonchi. Abdomen: Soft. Bowel sound positive. Non tender. No masses. Extremities: Severe varicose veins. Bilateral LE in dressing. Neuro: Intact, no focal findings. AAO X3. Labs: CBC, BMP 12/04/17 06:20 12/04/17 06:20 INR, PTT INR 1.19 (0.82-1.09) H 12/02/17 21:38 Assessment/Plan 57 year-old man with a PMHx of chronic DVT, PE s/p IVC filter and not on AC due to compliance. He has a remote history of partial gastrectomy admitted 2017 with leg swelling and pain. The patient has chronic dyspnea on effort but no cough, orthopnea. He had an echocardiogram in 2015 showing normal LV function with moderate MR/AR and moderate pulmonary artery HTN. At that time was treated for diastolic heart failure. A stress test in 2014 showed normal perfusion. ECG 12/02/2017 showed sinus rhythm with mild QT prolongation. He received blood transfusion for severe anemia. 1) Mild leg edema without pulmonary congestion, due to prior IVC and chronic DVT. Continue oral Lasix 40 mg daily. Consider vascular consultation appreciated. 2) Moderate pulm HTN and questionable PE raises concern for chronic thromboembolic Pulm HTN. Repeat echo pending.
[2017-12-04 19:32] LABS: HEMATOCRIT 26.2 % (35.4-49); HEMOGLOBIN 7.6 GM/dL (11.7-16.9); MCHC 28.8 g/dl (32.0-35.9); MEAN CELL VOLUME 58.1 fl (80-96); MEAN PLT VOLUME 6.6 fl (7.5-11.1); PLATELET COUNT 618 K/MM3 (134-434); RBC 4.51 M/mm3 (4.00-5.60); RDW 20.5 % (11.9-15.9); WHITE BLOOD COUNT 11.1 K/mm3 (4.0-10.0)
[2017-12-04 19:33] LABS: MCH 16.8 pg (25.7-33.7)
[2017-12-04] MEDS ORDERED: INSULIN (NOVOLOG) ASPART 100 UNITS/ML 10ML VIAL ONE (20:54)
[2017-12-05] MEDS: METHADONE HCL 40 MG DISPERSABLE TABLET PO SCH (06:24)
[2017-12-05] MEDS: GABAPENTIN 300 MG CAPSULE (FP) PO SCH ×3 (06:25→21:50)
[2017-12-05] MEDS: HEPARIN NA (PORCINE) 5,000 UNITS/ML 1ML VIAL SQ SCH ×3 (06:25→21:48)
[2017-12-05] MEDS: INSULIN SLIDING SCALE (NOVOLOG) 1 VIAL SQ SCH ×4 (06:45→21:50)
[2017-12-05] MEDS: ALBUTEROL SO4 2.5/IPRATROPIUM 0.5 INH SOL 3 ML VIAL.NEB. NEB SCH ×4 (07:35→19:45)
[2017-12-05 07:56] LABS: HEMATOCRIT 27.3 % (35.4-49); HEMOGLOBIN 8.1 GM/dL (11.7-16.9); MCHC 29.7 g/dl (32.0-35.9); MEAN CELL VOLUME 58.8 fl (80-96); MEAN PLT VOLUME 8.3 fl (7.5-11.1); PLATELET COUNT 597 K/MM3 (134-434); RBC 4.64 M/mm3 (4.00-5.60); RDW 20.7 % (11.9-15.9); WHITE BLOOD COUNT 8.1 K/mm3 (4.0-10.0)
[2017-12-05 08:21] LABS: MCH 17.5 pg (25.7-33.7)
[2017-12-05 08:22] LABS: ANION GAP 8 (8-16); BLOOD UREA NITROGEN 36 mg/dL (7-18); CHLORIDE 101 mmol/L (98-107); CO2 27 mmol/L (21-32); CREATININE 1.3 mg/dL (0.7-1.3); GLUCOSE,RANDOM 124 mg/dL (74-106); POTASSIUM 4.8 mmol/L (3.5-5.1); SODIUM 136 mmol/L (136-145)
--- NOTE | 2017-12-05 08:33 | PN ---
Physical Exam: SUBJECTIVE: 57-year-old male with history of hypertension, diastolic heart failure, severe pulmonary hypertension, anemia, left lower extremities DVT with pulmonary embolus status post IVC filter placement 11/2014, NIDDM, COPD who is admitted for CHF exacerbation. Patient received one unit PRBC last night. Patient is amenable to EGD/colonoscopy during his stay here. OBJECTIVE: Vital Signs Period Temp Pulse Resp BP Sys/Bethea Pulse Ox Last 24 Hr 97.7 F-99 F 71-86 18-20 129-146/77-91 96-98 GENERAL: The patient is awake, alert, and fully oriented, in no acute distress. EYES: PERRL, extraocular movements intact, sclera anicteric, LUNGS: Expiratory wheezes HEART: Regular rate 3+ systolic murmur heard best at sternal border ABDOMEN: Soft, nontender, nondistended, normoactive bowel sounds EXTREMITIES: 2+ PT pulses B/L, shallow clean ulcerations bilaterally, left leg anterior river 10x5, right leg anterior river wrapping around to posterior of leg , +2 edema B/L PSYCH: Normal mood, normal affect. Laboratory Results - last 24 hr 12/03/17 12/04/17 12/04/17 06:18 06:20 06:20 WBC RBC Hgb Hct MCV MCH MCHC RDW Plt Count MPV Sodium 135 L Potassium 4.7 Chloride 100 Carbon Dioxide 27 Anion Gap 8 BUN 37 H D Creatinine 1.4 H Creat Clearance w eGFR 52.05 POC Glucometer Random Glucose 100 D Calcium 9.1 Ferritin 7.1 L Cancelled Blood Type A POSITIVE Antibody Screen Negative Crossmatch See Detail 12/04/17 12/04/17 12/04/17 10:28 17:33 18:50 WBC 11.1 H RBC 4.51 Hgb 7.6 L Hct 26.2 L MCV 58.1 L MCH 16.8 L MCHC 28.8 L RDW 20.5 H Plt Count 618 H MPV 6.6 L D Sodium Potassium Chloride Carbon Dioxide Anion Gap BUN Creatinine Creat Clearance w eGFR POC Glucometer 199 171 Random Glucose Calcium Ferritin Blood Type Antibody Screen Crossmatch 12/04/17 12/05/17 12/05/17 21:20 05:51 06:30 WBC 8.1 RBC 4.64 Hgb 8.1 L Hct 27.3 L MCV 58.8 L MCH 17.5 L MCHC 29.7 L RDW 20.7 H Plt Count 597 H MPV 8.3 D Sodium Potassium Chloride Carbon Dioxide Anion Gap BUN Creatinine Creat Clearance w eGFR POC Glucometer 165 147 Random Glucose Calcium Ferritin Blood Type Antibody Screen Crossmatch Active Medications Generic Name Dose Route Start Last Admin Trade Name Albert PRN Reason Stop Dose Admin Albuterol/Ipratropium 1 amp 12/03/17 20:00 12/04/17 20:40 Duoneb - NEB 1 amp RQID [facility]ANJIT Administration Ferrous Sulfate 325 mg 12/03/17 22:00 12/04/17 21:18 Feosol - PO 325 mg BID [facility]JIT Administration Furosemide 40 mg 12/05/17 10:00 Lasix - PO DAILY [facility] Gabapentin 300 mg 12/03/17 22:00 12/05/17 06:25 Neurontin - PO 300 mg TID [facility]JIT Administration Heparin Sodium (Porcine) 5,000 unit 12/03/17 22:00 12/05/17 06:25 Heparin - SQ 5,000 unit TID RANJIT Administration Insulin Aspart 1 vial 12/03/17 22:00 12/05/17 06:45 Novolog Vial Sliding Scale - SQ Not Given ACHS RANJIT Protocol Methadone HCl 120 mg 12/04/17 06:00 12/05/17 06:24 Dolophine - PO 120 mg DAILY@0600 [facility]JIT Administration Metoprolol Succinate 25 mg 12/04/17 10:00 12/04/17 10:45 Toprol Xl - PO 25 mg DAILY [facility]JIT Administration Pantoprazole Sodium 40 mg 12/05/17 10:00 Protonix - PO DAILY [facility] Silver Sulfadiazine 1 applic 12/04/17 10:00 12/04/17 15:57 Silvadene - TP 1 applic DAILY [facility] Administration ASSESSMENT/PLAN: 57-year-old male with history of hypertension, diastolic heart failure, severe pulmonary hypertension, anemia, left lower extremities DVT with pulmonary embolus status post IVC filter placement 11/2014, NIDDM, COPD who is admitted for CHF exacerbation. #acute diastolic dysfunction - last echo EF of 60% - f/u echo - lasix 40 mg - daily weights - I's & O's #Anemia - HGB 8.1 s/p 1 unit transfusion - continue Fesol 325 mg BID - pt has history of gastrectomy - GI ([facility]) EGD/Colonoscopy scheduled for 12/07 - microcytic anemia, f/u iron studies - Ferritin: 7.1 - + family history of colon caner #chronic Lextremity swelling and chronic DVT R leg - DVT US showed chronic DVT in R leg with uncertain acute on chronicity - managed by wound care - pt to f/u with wound care out patient to see if he is candidate for leg compression/ESTRELLITA boot treatment - continue compression for now with silvadene #COPD -duonebs as needed #HTN - continue toprolol #GERD -protonix 40 mg po #substance abuse -methadone 120 mg #DM - SS -neurontin TID #DVT ppx: -heparin TID Dispo: f/u post EGD/Colonoscopy Visit type - Emergency Visit Emergency Visit: No - New Patient This patient is new to me today: No - Critical Care Critical Care patient: No
--- NOTE | 2017-12-05 10:14 | PN ---
Progress Note, Physician History of Present Illness: seen and examined today in [facility]. states he is feeling better overall, no overnight events or new complaints. - Current Medication List Current Medications: Active Medications Albuterol/Ipratropium (Duoneb -) 1 amp NEB RQID [facility] Last Admin: 12/05/17 07:35 Dose: 1 amp Ferrous Sulfate (Feosol -) 325 mg PO BID [facility] Last Admin: 12/04/17 21:18 Dose: 325 mg Furosemide (Lasix -) 40 mg PO DAILY [facility] Gabapentin (Neurontin -) 300 mg PO TID [facility] Last Admin: 12/05/17 06:25 Dose: 300 mg Heparin Sodium (Porcine) (Heparin -) 5,000 unit SQ TID [facility] Last Admin: 12/05/17 06:25 Dose: 5,000 unit Insulin Aspart (Novolog Vial Sliding Scale -) 1 vial SQ ACHS [facility]; Protocol Last Admin: 12/05/17 06:45 Dose: Not Given Methadone HCl (Dolophine -) 120 mg PO DAILY@0600 [facility] Last Admin: 12/05/17 06:24 Dose: 120 mg Metoprolol Succinate (Toprol Xl -) 25 mg PO DAILY [facility] Last Admin: 12/04/17 10:45 Dose: 25 mg Pantoprazole Sodium (Protonix -) 40 mg PO DAILY [facility] Silver Sulfadiazine (Silvadene -) 1 applic TP DAILY [facility] Last Admin: 12/04/17 15:57 Dose: 1 applic - Objective Vital Signs: Vital Signs Temperature 98.6 F 12/05/17 10:06 Pulse Rate 79 12/05/17 10:06 Respiratory Rate 18 12/05/17 10:06 Blood Pressure 142/80 12/05/17 10:06 O2 Sat by Pulse Oximetry (%) 96 12/04/17 21:00 Constitutional: Yes: No Distress, Calm Eyes: Yes: Conjunctiva Clear, EOM Intact HENT: Yes: Atraumatic, Normocephalic Neck: Yes: Supple, Trachea Midline Cardiovascular: Yes: Regular Rate and Rhythm, Murmur, S1, S2. No: Bradycardia, Tachycardia, Pulse Irregular, Bruit, JVD, Gallop, Rub, S3, S4, Varicosities Respiratory: Yes: Regular, CTA Bilaterally. No: Rales, Rhonchi, Wheezes Gastrointestinal: Yes: Normal Bowel Sounds, Soft Extremities: Yes: Erythema Edema: Yes Edema: LLE: 2+, RLE: 2+ Neurological: Yes: Alert, Oriented Psychiatric: Yes: Alert, Oriented Labs: CBC, BMP 12/05/17 06:30 12/05/17 06:30 INR, PTT INR 1.19 (0.82-1.09) H 12/02/17 21:38 - ....Imaging Chest X-ray: Report Reviewed, Image Reviewed EKG: Report Reviewed, Image Reviewed Other: Report Reviewed, Image Reviewed Assessment/Plan 57 year-old man with a PMHx of chronic DVT, PE s/p IVC filter and not on AC due to compliance. He has a remote history of partial gastrectomy admitted 2017 with leg swelling and pain. The patient has chronic dyspnea on effort but no cough, orthopnea. He had an echocardiogram in 2015 showing normal LV function with moderate MR/AR and moderate pulmonary artery HTN. At that time was treated for diastolic heart failure. A stress test in 2014 showed normal perfusion. ECG 12/02/2017 showed sinus rhythm with mild QT prolongation. He received blood transfusion for severe anemia. 1) Mild leg edema without pulmonary congestion, due to prior IVC and chronic DVT. -not significantly volume overloaded -Continue po Lasix 40 mg daily. -vascular evaluated and pt to fup in wound center outpatient 2) Moderate pulm HTN and questionable PE raises concern for chronic thromboembolic Pulm HTN. -fup echo from today
[2017-12-05] MEDS: FUROSEMIDE 40 MG TABLET (FP) PO SCH (11:45)
[2017-12-05] MEDS: FERROUS SO4 325 MG TABLET (FP) PO SCH ×2 (11:45→21:50)
[2017-12-05] MEDS: PANTOPRAZOLE 40 MG TABLET (FP) PO SCH (11:45)
[2017-12-05] MEDS: metoPROLOL SUCCINATE 25 MG TAB.SR.24H (FP) PO SCH (11:46)
[2017-12-05 14:30] LABS: SERUM IRON SATURATION 4 % (15-55); TOTAL IRON BINDING CAPACITY 344 ug/dL (250-450); UIBC 331 ug/dL (111-343)
--- NOTE | 2017-12-05 15:39 | PN ---
Teaching Attending Note Name of Resident: Brianda Felix ATTENDING PHYSICIAN STATEMENT I saw and evaluated the patient. I reviewed the resident's note and discussed the case with the resident. I agree with the resident's findings and plan as documented. SUBJECTIVE: no fever or chills , has no CP or ABd pain, has no SOB. OBJECTIVE: NAD, MMM CV: RRR, 3/6 SM at base , LLSB and apex. Lungs: CTAB LE: trace edema, and varicose veins. has a clean bleeding wounds on each leg with no signs of infection . scarred , hyper and hypopigmented skin on legs . . DP 2+ b/l Assessment/Plan: 57 y/o man with h/o Drug use, HTN, D heart failure, DM , h/o GI bleed with partial gastrectomy in 1980s, DVT and PE s/p IVC filter , not on AC due to non compliance, pulm HTN, COPD , and iron def anemia who presented with SOB and worsening LE edema. He was found to have acute Diastolic heart failure 1- Acute diastolic heart failure, improved - cont po lasix - echo is pending read - cont BB 2- Iron def anemia: likely slow GI bleed . - d/w Dr. Lane. for EGD and colonoscopy hopefully tomorrow 3- LE wounds: - apply silvadine and clean gauze - f/u in wound clinic 4- h/o DVT , PE : not on AC due to non compliance. has IVC filter . 5- DM : cont SSI 6- h/o COPD. Nebs as needed 7- h/o opioid abuse: cont methadone . 8- prolonged QTC 502, due to methadone. monitor . avoid other QT prolonging meds dispo : pending EGD and colo
--- NOTE | 2017-12-05 17:10 | ECHO ---
Name: TIGNONSINI, AUSTIN Exam:Adult Echocardiogram Study Date: 12/05/2017 08:27 AM Reason For Study: CHF Height: 67 in Weight: 192 lb BSA: 2.0 m2 MMode/2D Measurements & Calculations IVSd: 0.83 cm Ao root diam: 3.1 cm LVIDd: 5.5 cm LA dimension: 3.8 cm LVPWd: 0.85 cm EDV(Teich): 149.8 ml RV S Jordan: 12.8 cm/sec Doppler Measurements & Calculations MV E max jordan: 74.5 cm/sec Ao V2 max: 189.4 cm/sec MV A max jordan: 98.7 cm/sec Ao max P.4 mmHg MV E/A: 0.75 Ao V2 mean: 128.4 cm/sec MV dec time: 0.26 sec Ao mean P.6 mmHg Ao V2 VTI: 38.0 cm AI P1/2t: 339.8 msec AI max jordan: 358.7 cm/sec LV V1 max P.4 mmHg AI max P.5 mmHg LV V1 mean P.4 mmHg LV V1 max: 116.0 cm/sec AI dec slope: 309.1 cm/sec2 LV V1 mean: 71.0 cm/sec LV V1 VTI: 25.3 cm MR max jordan: 355.0 cm/sec TR max jordan: 247.6 cm/sec MR max P.2 mmHg TR max P.5 mmHg Med Peak E' Jordan: 8.3 cm/sec Med E/e': 8.9 Lat Peak E' Jordan: 8.1 cm/sec Lat E/e': 9.2 Procedure A two-dimensional transthoracic echocardiogram with color flow and Doppler was performed. The study w as technically difficult with many images being suboptimal in quality. The patient was in normal sinus r hythm during the exam. Left Ventricle Left ventricular systolic function is grossly normal. E/A reversal consistent with but not diagnostic of poor LV compliance. Right Ventricle The right ventricle is not well visualized. The right ventricle is grossly normal size. The right sandra tricular systolic function is grossly normal. Atria The left atrium is mildly dilated. Right atrial size is normal. Mitral Valve The mitral valve is normal. There is mild mitral regurgitation. Tricuspid Valve The tricuspid valve is normal. There was insufficient TR detected to calculate RV systolic pressure. There is trace tricuspid regurgitation. Aortic Valve The aortic valve is normal in structure and function. The aortic valve opens well. Mild to moderate a ortic regurgitation. Pulmonic Valve The pulmonic valve is not well seen, but is grossly normal. There is no pulmonic valvular regurgitati on. Great Vessels The aortic root is normal size. Pericardium/Pleura There is no pericardial effusion. Interpretation Summary The study was technically difficult with many images being suboptimal in quality. Left ventricular systolic function is grossly normal. E/A reversal consistent with but not diagnostic of poor LV compliance The right ventricle is grossly normal size. The right ventricular systolic function is grossly normal. The left atrium is mildly dilated. There is mild mitral regurgitation. There is trace tricuspid regurgitation. There was insufficient TR detected to calculate RV systolic pressure. Mild to moderate aortic regurgitation. There is no pericardial effusion. MD Ezekiel Eagle 12/05/2017 05:10 PM
[2017-12-05] MEDS: SILVER SULFADIAZINE 1% TOP CREAM 400 GM JAR TP SCH (17:49)
[2017-12-06] MEDS: METHADONE HCL 40 MG DISPERSABLE TABLET PO SCH (05:51)
[2017-12-06] MEDS: HEPARIN NA (PORCINE) 5,000 UNITS/ML 1ML VIAL SQ SCH ×3 (05:52→21:34)
[2017-12-06] MEDS: GABAPENTIN 300 MG CAPSULE (FP) PO SCH ×4 (05:52→21:39)
[2017-12-06] MEDS: INSULIN SLIDING SCALE (NOVOLOG) 1 VIAL SQ SCH ×4 (06:03→21:32)
--- NOTE | 2017-12-06 06:45 | PN ---
Physical Exam: SUBJECTIVE: 57-year-old male with history of hypertension, diastolic heart failure, severe pulmonary hypertension, anemia, left lower extremities DVT with pulmonary embolus status post IVC filter placement 11/2014, NIDDM, COPD who is admitted for CHF exacerbation. patient has no acute complaints. He is getting a EGD/ Colonoscopy tomorrow. OBJECTIVE: Vital Signs Period Temp Pulse Resp BP Sys/Bethea Pulse Ox Last 24 Hr 98.1 F-98.6 F 78-79 18-18 142-149/80-92 96-96 GENERAL: The patient is awake, alert, and fully oriented, in no acute distress. EYES: PERRL, extraocular movements intact, sclera anicteric, LUNGS: Expiratory wheezes HEART: Regular rate 3+ systolic murmur heard best at sternal border ABDOMEN: Soft, nontender, nondistended, normoactive bowel sounds EXTREMITIES: 2+ PT pulses B/L, shallow clean ulcerations bilaterally, left leg anterior river 10x5, right leg anterior river wrapping around to posterior of leg , +2 edema B/L PSYCH: Normal mood, normal affect. Laboratory Results - last 24 hr 12/04/17 12/04/17 12/05/17 10:58 11:00 06:30 WBC 8.1 RBC 4.64 Hgb 8.1 L Hct 27.3 L MCV 58.8 L MCH 17.5 L MCHC 29.7 L RDW 20.7 H Plt Count 597 H MPV 8.3 D Sodium Potassium Chloride Carbon Dioxide Anion Gap BUN Creatinine Creat Clearance w eGFR POC Glucometer Random Glucose Calcium Iron 13 L TIBC 344 Iron Saturation 4 L Transferrin 264 12/05/17 12/05/17 12/05/17 06:30 10:46 17:17 WBC RBC Hgb Hct MCV MCH MCHC RDW Plt Count MPV Sodium 136 Potassium 4.8 Chloride 101 Carbon Dioxide 27 Anion Gap 8 BUN 36 H Creatinine 1.3 Creat Clearance w eGFR 56.70 POC Glucometer 149 179 Random Glucose 124 H D Calcium 9.0 Iron TIBC Iron Saturation Transferrin 12/05/17 12/06/17 21:47 05:49 WBC RBC Hgb Hct MCV MCH MCHC RDW Plt Count MPV Sodium Potassium Chloride Carbon Dioxide Anion Gap BUN Creatinine Creat Clearance w eGFR POC Glucometer 211 142 Random Glucose Calcium Iron TIBC Iron Saturation Transferrin Active Medications Generic Name Dose Route Start Last Admin Trade Name Albert PRN Reason Stop Dose Admin Albuterol/Ipratropium 1 amp 12/03/17 20:00 12/05/17 19:45 Duoneb - NEB 1 amp RQID RANJIT Administration Bisacodyl 20 mg 12/06/17 15:00 Dulcolax - PO 12/06/17 15:01 ONCE ONE Ferrous Sulfate 325 mg 12/03/17 22:00 12/05/17 21:50 Feosol - PO 325 mg BID RANJIT Administration Furosemide 40 mg 12/05/17 10:00 12/05/17 11:45 Lasix - PO 40 mg DAILY RANJIT Administration Gabapentin 300 mg 12/03/17 22:00 12/06/17 05:52 Neurontin - PO 300 mg TID RANJIT Administration Heparin Sodium (Porcine) 5,000 unit 12/03/17 22:00 12/06/17 05:52 Heparin - SQ 5,000 unit TID RANJIT Administration Insulin Aspart 1 vial 12/03/17 22:00 12/06/17 06:03 Novolog Vial Sliding Scale - SQ Not Given [facility] Protocol Methadone HCl 120 mg 12/04/17 06:00 12/06/17 05:51 Dolophine - PO 120 mg DAILY@0600 RANJIT Administration Metoprolol Succinate 25 mg 12/04/17 10:00 12/05/17 11:46 Toprol Xl - PO 25 mg DAILY RANJIT Administration Pantoprazole Sodium 40 mg 12/05/17 10:00 12/05/17 11:45 Protonix - PO 40 mg DAILY RANJIT Administration Polyethylene Glycol/Electrolytes 4,000 ml 12/06/17 18:00 Golytely Solution - PO 12/06/17 18:01 ONCE ONE Silver Sulfadiazine 1 applic 12/04/17 10:00 12/05/17 17:49 Silvadene - TP 1 applic DAILY RANJIT Administration ASSESSMENT/PLAN: 57-year-old male with history of hypertension, diastolic heart failure, severe pulmonary hypertension, anemia, left lower extremities DVT with pulmonary embolus status post IVC filter placement 11/2014, NIDDM, COPD who is admitted for CHF exacerbation. #acute diastolic dysfunction - last echo EF of 60% - echo: LV systolic function normal, left atrium mildly dilated, mild mitral regurgitation - lasix 40 mg - daily weights - I's & O's #Anemia likely 2/2 to iron deficiency - HGB 8.6 s/p 1 unit transfusion - continue Fesol 325 mg BID - pt has history of gastrectomy - GI ([facility]) EGD/Colonoscopy scheduled for 12/07 - microcytic anemia - iron:13 TIBC : 344 saturation: 4 transferrin: 264 Ferritin: 7.1 - + family history of colon caner #chronic Lextremity swelling and chronic DVT R leg - DVT US showed chronic DVT in R leg with uncertain acute on chronicity - managed by wound care - pt to f/u with wound care out patient to see if he is candidate for leg compression/ESTRELLITA boot treatment - continue compression for now with silvadene #COPD -duonebs as needed #HTN - continue toprolol #GERD -protonix 40 mg po #substance abuse -methadone 120 mg #DM - SS -neurontin TID #DVT ppx: -heparin TID Dispo: f/u post EGD/Colonoscopy Visit type - Emergency Visit Emergency Visit: No - New Patient This patient is new to me today: No - Critical Care Critical Care patient: No
[2017-12-06] MEDS: ALBUTEROL SO4 2.5/IPRATROPIUM 0.5 INH SOL 3 ML VIAL.NEB. NEB SCH ×4 (08:00→21:07)
[2017-12-06 08:27] LABS: HEMATOCRIT 28.8 % (35.4-49); HEMOGLOBIN 8.6 GM/dL (11.7-16.9); MCHC 29.8 g/dl (32.0-35.9); MEAN CELL VOLUME 59.7 fl (80-96); MEAN PLT VOLUME 8.2 fl (7.5-11.1); PLATELET COUNT 631 K/MM3 (134-434); RBC 4.83 M/mm3 (4.00-5.60); RDW 20.8 % (11.9-15.9); WHITE BLOOD COUNT 10.3 K/mm3 (4.0-10.0)
[2017-12-06] MEDS ORDERED: POLYETHYLENE GLYCOL 3350 119 GM BTL PO ONE (08:30)
[2017-12-06 08:51] LABS: ANION GAP 7 (8-16); BLOOD UREA NITROGEN 31 mg/dL (7-18); CALCIUM 9.4 mg/dL (8.5-10.1); CHLORIDE 98 mmol/L (98-107); CO2 27 mmol/L (21-32); GLUCOSE,RANDOM 170 mg/dL (74-106); POTASSIUM 5.1 mmol/L (3.5-5.1); SODIUM 132 mmol/L (136-145)
[2017-12-06 08:55] LABS: CREATININE 1.3 mg/dL (0.7-1.3)
[2017-12-06 09:37] LABS: MCH 17.8 pg (25.7-33.7)
[2017-12-06] MEDS: FERROUS SO4 325 MG TABLET (FP) PO SCH ×2 (10:51→21:37)
[2017-12-06] MEDS: metoPROLOL SUCCINATE 25 MG TAB.SR.24H (FP) PO SCH (10:51)
[2017-12-06] MEDS: FUROSEMIDE 40 MG TABLET (FP) PO SCH (10:51)
[2017-12-06] MEDS: PANTOPRAZOLE 40 MG TABLET (FP) PO SCH (10:51)
[2017-12-06 11:51] VITALS: BMI 29.1
[2017-12-06] MEDS: SILVER SULFADIAZINE 1% TOP CREAM 400 GM JAR TP SCH (12:06)
[2017-12-06] MEDS ORDERED: ACETAMINOPHEN 325 MG TABLET (FP) PO PRN (13:40)
[2017-12-06] MEDS: BISACODYL 5 MG TABLET.DR (FP) PO ONE ×2 (14:05→14:55)
--- NOTE | 2017-12-06 15:39 | PN ---
Teaching Attending Note Name of Resident: Brianda Felix ATTENDING PHYSICIAN STATEMENT I saw and evaluated the patient. I reviewed the resident's note and discussed the case with the resident. I agree with the resident's findings and plan as documented. SUBJECTIVE: c/o having lower extremity pain. OBJECTIVE: Vital Signs Temperature 98.2 F 12/06/17 14:56 Pulse Rate 82 12/06/17 14:56 Respiratory Rate 18 12/06/17 14:56 Blood Pressure 146/83 12/06/17 14:56 O2 Sat by Pulse Oximetry (%) 96 12/05/17 21:00 CBCD WBC 10.3 K/mm3 (4.0-10.0) H 12/06/17 06:50 RBC 4.83 M/mm3 (4.00-5.60) 12/06/17 06:50 Hgb 8.6 GM/dL (11.7-16.9) L 12/06/17 06:50 Hct 28.8 % (35.4-49) L 12/06/17 06:50 MCV 59.7 fl (80-96) L 12/06/17 06:50 MCHC 29.8 g/dl (32.0-35.9) L 12/06/17 06:50 RDW 20.8 % (11.9-15.9) H 12/06/17 06:50 Plt Count 631 K/MM3 (134-434) H 12/06/17 06:50 MPV 8.2 fl (7.5-11.1) 12/06/17 06:50 CMP Sodium 132 mmol/L (136-145) L 12/06/17 06:50 Potassium 5.1 mmol/L (3.5-5.1) 12/06/17 06:50 Chloride 98 mmol/L (98-107) 12/06/17 06:50 Carbon Dioxide 27 mmol/L (21-32) 12/06/17 06:50 Anion Gap 7 (8-16) L 12/06/17 06:50 BUN 31 mg/dL (7-18) H 12/06/17 06:50 Creatinine 1.3 mg/dL (0.7-1.3) 12/06/17 06:50 Creat Clearance w eGFR 56.70 (>60) 12/06/17 06:50 Random Glucose 170 mg/dL (74-106) H D 12/06/17 06:50 Calcium 9.4 mg/dL (8.5-10.1) 12/06/17 06:50 Total Bilirubin 0.2 mg/dL (0.2-1.0) 12/02/17 21:38 AST 11 U/L (15-37) L D 12/02/17 21:38 ALT 8 U/L (12-78) L D 12/02/17 21:38 Alkaline Phosphatase 121 U/L (45-117) H 12/02/17 21:38 Total Protein 7.5 g/dl (6.4-8.2) 12/02/17 21:38 Albumin 2.6 g/dl (3.4-5.0) L 12/02/17 21:38 CARDIAC ENZYMES Creatine Kinase 50 IU/L (39-308) 12/02/17 21:38 Troponin I < 0.02 ng/ml (0.00-0.05) 12/02/17 21:38 Current Medications Generic Name Dose Route Start Last Admin Trade Name Freq PRN Reason Stop Dose Admin Acetaminophen 650 mg 12/06/17 13:40 12/06/17 14:03 Tylenol - PO 650 mg Q6H PRN Administration Fever Or Pain Albuterol/Ipratropium 1 amp 12/03/17 20:00 12/06/17 11:55 Duoneb - NEB 1 amp RQID RANJIT Administration Ferrous Sulfate 325 mg 12/03/17 22:00 12/06/17 10:51 Feosol - PO 325 mg BID RANJIT Administration Furosemide 40 mg 12/05/17 10:00 12/06/17 10:51 Lasix - PO 40 mg DAILY RANJIT Administration Gabapentin 300 mg 12/03/17 22:00 12/06/17 14:09 Neurontin - PO Not Given TID [facility] Heparin Sodium (Porcine) 5,000 unit 12/03/17 22:00 12/06/17 14:01 Heparin - SQ 5,000 unit TID RANJIT Administration Insulin Aspart 1 vial 12/03/17 22:00 12/06/17 12:16 Novolog Vial Sliding Scale - SQ Not Given ACHS [facility] Protocol Methadone HCl 120 mg 12/04/17 06:00 12/06/17 05:51 Dolophine - PO 120 mg DAILY@0600 RANJIT Administration Metoprolol Succinate 25 mg 12/04/17 10:00 12/06/17 10:51 Toprol Xl - PO 25 mg DAILY RANJIT Administration Pantoprazole Sodium 40 mg 12/05/17 10:00 12/06/17 10:51 Protonix - PO 40 mg DAILY RANJIT Administration Polyethylene Glycol/Electrolytes 4,000 ml 12/06/17 18:00 Golytely Solution - PO 12/06/17 18:01 ONCE ONE Silver Sulfadiazine 1 applic 12/04/17 10:00 12/06/17 12:06 Silvadene - TP 1 applic DAILY RANJIT Administration Home Medications Medication Instructions Recorded Methadone [Dolophine -] 120 mg PO DAILY 03/13/16 metFORMIN HCL [Metformin HCl] 500 mg PO BID #60 tablet 03/21/16 Ferrous Sulfate [Feosol] 400 mg PO BID 09/23/16 Silver Sulfadiazine 1% Top Cr 1 applic TP PRN 09/23/16 [Silvadene -] Metoprolol Succinate [Toprol XL -] 25 mg PO DAILY 11/10/16 Laboratory Tests 12/02/17 12/03/17 12/05/17 21:38 06:18 06:30 Sodium 137 137 136 BUN 12 36 H Creatinine 1.0 1.0 1.3 Creat Clearance w eGFR > 60 Random Glucose 124 H D 172 H D 124 H D Magnesium 2.3 12/06/17 06:50 Sodium 132 L BUN 31 H Creatinine 1.3 Creat Clearance w eGFR Random Glucose 170 H D Magnesium ECHO: Mild to moderate AR ASSESSMENT AND PLAN: Patient is a 57 y/o man with h/o Drug dependency , HTN, D heart failure, DM , h/ o GI bleed with partial gastrectomy in , DVT and PE s/p IVC filter , not on AC due to non compliance, pulm HTN, COPD , and iron def anemia who presented with SOB and worsening LE edema. He was found to have acute Diastolic heart failure # Acute diastolic heart failure, improved on lasix will continue , continue BB # Iron def anemia: going for egd and colonoscopy in am by , will start the patient on Iron supplement with colace # LE wounds: continue silvadine and clean gauze , f/u in wound clinic # h/o DVT , PE : not on AC due to non compliance. has IVC filter . # DM : cont SSI # h/o COPD. Nebs as needed # h/o opioid dependency : cont methadone . # prolonged QTc 502, due to methadone. monitor . avoid other QT prolonging meds pending EGD and colo
--- NOTE | 2017-12-06 17:27 | PN ---
Progress Note, Physician History of Present Illness: seen and examined today in nad. awaiting endoscopies. no overnight events. no new complaints. - Current Medication List Current Medications: Active Medications Acetaminophen (Tylenol -) 650 mg PO Q6H PRN PRN Reason: Fever Or Pain Last Admin: 12/06/17 14:03 Dose: 650 mg Albuterol/Ipratropium (Duoneb -) 1 amp NEB RQID [facility] Last Admin: 12/06/17 15:46 Dose: Not Given Ferrous Sulfate (Feosol -) 325 mg PO BID [facility] Last Admin: 12/06/17 10:51 Dose: 325 mg Furosemide (Lasix -) 40 mg PO DAILY [facility] Last Admin: 12/06/17 10:51 Dose: 40 mg Gabapentin (Neurontin -) 300 mg PO TID [facility] Last Admin: 12/06/17 14:09 Dose: Not Given Heparin Sodium (Porcine) (Heparin -) 5,000 unit SQ TID [facility] Last Admin: 12/06/17 14:01 Dose: 5,000 unit Insulin Aspart (Novolog Vial Sliding Scale -) 1 vial SQ [facility]; Protocol Last Admin: 12/06/17 12:16 Dose: Not Given Methadone HCl (Dolophine -) 120 mg PO DAILY@0600 [facility] Last Admin: 12/06/17 05:51 Dose: 120 mg Metoprolol Succinate (Toprol Xl -) 25 mg PO DAILY [facility] Last Admin: 12/06/17 10:51 Dose: 25 mg Pantoprazole Sodium (Protonix -) 40 mg PO DAILY [facility] Last Admin: 12/06/17 10:51 Dose: 40 mg Polyethylene Glycol/Electrolytes (Golytely Solution -) 4,000 ml PO ONCE ONE Stop: 12/06/17 18:01 Silver Sulfadiazine (Silvadene -) 1 applic TP DAILY [facility] Last Admin: 12/06/17 12:06 Dose: 1 applic - Objective Vital Signs: Vital Signs Temperature 98.2 F 12/06/17 14:56 Pulse Rate 82 12/06/17 14:56 Respiratory Rate 18 12/06/17 14:56 Blood Pressure 146/83 12/06/17 14:56 O2 Sat by Pulse Oximetry (%) 96 12/06/17 09:00 Constitutional: Yes: No Distress, Calm Eyes: Yes: Conjunctiva Clear, EOM Intact, PERRL HENT: Yes: Atraumatic, Normocephalic Neck: Yes: Supple, Trachea Midline Cardiovascular: Yes: Regular Rate and Rhythm, Murmur, S1, S2. No: Bradycardia, Tachycardia, Pulse Irregular, Bruit, JVD, Gallop, Rub, S3, S4, Varicosities Respiratory: Yes: Regular, CTA Bilaterally. No: Rales, Rhonchi, SOB, Wheezes Gastrointestinal: Yes: Normal Bowel Sounds, Soft. No: Distention, Tenderness Edema: Yes Edema: LLE: 1+, RLE: 1+ Neurological: Yes: Alert, Oriented Psychiatric: Yes: Alert, Oriented Labs: CBC, BMP 12/06/17 06:50 12/06/17 06:50 INR, PTT INR 1.19 (0.82-1.09) H 12/02/17 21:38 - ....Imaging Chest X-ray: Report Reviewed, Image Reviewed EKG: Report Reviewed, Image Reviewed Other: Report Reviewed, Image Reviewed Assessment/Plan 57 year-old man with a PMHx of chronic DVT, PE s/p IVC filter and not on AC due to compliance. He has a remote history of partial gastrectomy admitted 2017 with leg swelling and pain. The patient has chronic dyspnea on effort but no cough, orthopnea. He had an echocardiogram in 2015 showing normal LV function with moderate MR/AR and moderate pulmonary artery HTN. At that time was treated for diastolic heart failure. A stress test in 2014 showed normal perfusion. ECG 12/02/2017 showed sinus rhythm with mild QT prolongation. He received blood transfusion for severe anemia. 1) Mild leg edema without pulmonary congestion, due to prior IVC and chronic DVT. -not significantly volume overloaded -Continue po Lasix 40 mg daily. -vascular evaluated and pt to fup in wound center outpatient 2) Moderate pulm HTN and questionable PE raises concern for chronic thromboembolic Pulm HTN. -Echo 12/05/17 showed grossly normal LV/RV systolic function, mild MR, mild to mod AR, no pericardial effusion No current cardiac contraindications to planned endoscopies. No additional inpatient cardiac work up is needed at this time. [facility] outpatient fup. Please call with any additional questions.
[2017-12-06] MEDS ORDERED: PEG 3350/NA SULF BICARB CL/KCL 4000 ML SOLN.RECON PO ONE (18:00)
[2017-12-07] MEDS: METHADONE HCL 40 MG DISPERSABLE TABLET PO SCH (05:54)
[2017-12-07] MEDS: GABAPENTIN 300 MG CAPSULE (FP) PO SCH ×2 (05:56→14:55)
[2017-12-07] MEDS: HEPARIN NA (PORCINE) 5,000 UNITS/ML 1ML VIAL SQ SCH ×2 (05:56→14:56)
[2017-12-07] MEDS: INSULIN SLIDING SCALE (NOVOLOG) 1 VIAL SQ SCH ×3 (06:04→17:57)
[2017-12-07 08:00] LABS: HEMATOCRIT 27.7 % (35.4-49); HEMOGLOBIN 8.3 GM/dL (11.7-16.9); MCHC 29.9 g/dl (32.0-35.9); MEAN CELL VOLUME 59.3 fl (80-96); MEAN PLT VOLUME 8.2 fl (7.5-11.1); PLATELET COUNT 542 K/MM3 (134-434); RBC 4.68 M/mm3 (4.00-5.60); RDW 20.2 % (11.9-15.9); WHITE BLOOD COUNT 7.5 K/mm3 (4.0-10.0)
[2017-12-07 08:11] LABS: MCH 17.7 pg (25.7-33.7)
[2017-12-07] MEDS: ALBUTEROL SO4 2.5/IPRATROPIUM 0.5 INH SOL 3 ML VIAL.NEB. NEB SCH ×2 (08:14→12:00)
[2017-12-07 08:23] LABS: ANION GAP 6 (8-16); BLOOD UREA NITROGEN 21 mg/dL (7-18); CHLORIDE 99 mmol/L (98-107); CO2 29 mmol/L (21-32); GLUCOSE,RANDOM 142 mg/dL (74-106); SODIUM 134 mmol/L (136-145)
[2017-12-07 08:24] LABS: CREATININE 1.1 mg/dL (0.7-1.3)
[2017-12-07] MEDS: PANTOPRAZOLE 40 MG TABLET (FP) PO SCH (10:29)
[2017-12-07] MEDS: FUROSEMIDE 40 MG TABLET (FP) PO SCH (10:29)
[2017-12-07] MEDS: metoPROLOL SUCCINATE 25 MG TAB.SR.24H (FP) PO SCH (10:29)
[2017-12-07] MEDS: FERROUS SO4 325 MG TABLET (FP) PO SCH (10:29)
[2017-12-07] MEDS: SILVER SULFADIAZINE 1% TOP CREAM 400 GM JAR TP SCH (10:30)
[2017-12-07] MEDS ORDERED: BISACODYL 5 MG TABLET.DR (FP) PO ONE (13:54)
--- NOTE | 2017-12-07 15:46 | PN ---
Progress Note (short form) - Note Progress Note: The pt wants to have EGD and colonocopy as OP next week. Discussed the prep and the scheduling process with the patient. Problem List - Problems (1) Microcytic anemia Code(s): D50.9 - IRON DEFICIENCY ANEMIA, UNSPECIFIED (2) Pulmonary hypertension Code(s): I27.20 - PULMONARY HYPERTENSION, UNSPECIFIED (3) CHF (congestive heart failure) Code(s): I50.9 - HEART FAILURE, UNSPECIFIED (4) Anemia Code(s): D64.9 - ANEMIA, UNSPECIFIED Qualifiers: (5) DVT (deep venous thrombosis) Code(s): I82.409 - ACUTE EMBOLISM AND THOMBOS UNSP DEEP VN UNSP LOWER EXTREMITY Qualifiers: DVT location: lower extremity Affected thrombotic vein of extremity: unspecified vein of extremity
--- NOTE | 2017-12-07 16:38 | PN ---
Teaching Attending Note Name of Resident: Brianda Felix ATTENDING PHYSICIAN STATEMENT I saw and evaluated the patient. I reviewed the resident's note and discussed the case with the resident. I agree with the resident's findings and plan as documented. SUBJECTIVE: Patient has no episode of any GI issues. OBJECTIVE: Vital Signs Temperature 98.2 F 12/07/17 15:27 Pulse Rate 72 12/07/17 15:27 Respiratory Rate 18 12/07/17 15:27 Blood Pressure 139/83 12/07/17 15:27 O2 Sat by Pulse Oximetry (%) 96 12/07/17 09:00 CBCD WBC 7.5 K/mm3 (4.0-10.0) 12/07/17 07:22 RBC 4.68 M/mm3 (4.00-5.60) 12/07/17 07:22 Hgb 8.3 GM/dL (11.7-16.9) L 12/07/17 07:22 Hct 27.7 % (35.4-49) L 12/07/17 07:22 MCV 59.3 fl (80-96) L 12/07/17 07:22 MCHC 29.9 g/dl (32.0-35.9) L 12/07/17 07:22 RDW 20.2 % (11.9-15.9) H 12/07/17 07:22 Plt Count 542 K/MM3 (134-434) H 12/07/17 07:22 MPV 8.2 fl (7.5-11.1) 12/07/17 07:22 CMP Sodium 134 mmol/L (136-145) L 12/07/17 07:22 Potassium 5.0 mmol/L (3.5-5.1) 12/07/17 07:22 Chloride 99 mmol/L (98-107) 12/07/17 07:22 Carbon Dioxide 29 mmol/L (21-32) 12/07/17 07:22 Anion Gap 6 (8-16) L 12/07/17 07:22 BUN 21 mg/dL (7-18) H 12/07/17 07:22 Creatinine 1.1 mg/dL (0.7-1.3) 12/07/17 07:22 Creat Clearance w eGFR > 60 (>60) 12/07/17 07:22 Random Glucose 142 mg/dL (74-106) H 12/07/17 07:22 Calcium 9.0 mg/dL (8.5-10.1) 12/07/17 07:22 Total Bilirubin 0.2 mg/dL (0.2-1.0) 12/02/17 21:38 AST 11 U/L (15-37) L D 12/02/17 21:38 ALT 8 U/L (12-78) L D 12/02/17 21:38 Alkaline Phosphatase 121 U/L (45-117) H 12/02/17 21:38 Total Protein 7.5 g/dl (6.4-8.2) 12/02/17 21:38 Albumin 2.6 g/dl (3.4-5.0) L 12/02/17 21:38 CARDIAC ENZYMES Creatine Kinase 50 IU/L (39-308) 12/02/17 21:38 Troponin I < 0.02 ng/ml (0.00-0.05) 12/02/17 21:38 Current Medications Generic Name Dose Route Start Last Admin Trade Name Freq PRN Reason Stop Dose Admin Acetaminophen 650 mg 12/06/17 13:40 12/06/17 14:03 Tylenol - PO 650 mg Q6H PRN Administration Fever Or Pain Albuterol/Ipratropium 1 amp 12/03/17 20:00 12/07/17 12:00 Duoneb - NEB 1 amp RQID RANJIT Administration Ferrous Sulfate 325 mg 12/03/17 22:00 12/07/17 10:29 Feosol - PO 325 mg BID RANJIT Administration Furosemide 40 mg 12/05/17 10:00 12/07/17 10:29 Lasix - PO 40 mg DAILY RANJIT Administration Gabapentin 300 mg 12/03/17 22:00 12/07/17 14:55 Neurontin - PO Not Given TID [facility] Heparin Sodium (Porcine) 5,000 unit 12/03/17 22:00 12/07/17 14:56 Heparin - SQ Not Given TID [facility] Insulin Aspart 1 vial 12/03/17 22:00 12/07/17 11:35 Novolog Vial Sliding Scale - SQ 6 units ACHS RANJIT Administration Protocol Methadone HCl 120 mg 12/04/17 06:00 12/07/17 05:54 Dolophine - PO 120 mg DAILY@0600 RANJIT Administration Metoprolol Succinate 25 mg 12/04/17 10:00 12/07/17 10:29 Toprol Xl - PO 25 mg DAILY RANJIT Administration Pantoprazole Sodium 40 mg 12/05/17 10:00 12/07/17 10:29 Protonix - PO 40 mg DAILY RANJIT Administration Polyethylene Glycol/Electrolytes 4,000 ml 12/07/17 18:00 Golytely Solution - PO 12/07/17 18:01 ONCE ONE Silver Sulfadiazine 1 applic 12/04/17 10:00 12/07/17 10:30 Silvadene - TP 1 applic DAILY RANJIT Administration Home Medications Medication Instructions Recorded RX: Methadone [Dolophine -] 120 mg PO DAILY 03/13/16 RX: metFORMIN HCL [Metformin HCl] 500 mg PO BID #60 tablet 03/21/16 RX: Ferrous Sulfate [Feosol] 400 mg PO BID 09/23/16 RX: Silver Sulfadiazine 1% Top Cr 1 applic TP PRN 09/23/16 [Silvadene -] Peg 3350/Na Sulf,Bicarb,Cl/KCl 4,000 ml PO ONCE #1 soln.recon 12/07/17 [Golytely Solution -] RX: Furosemide [Lasix -] 40 mg PO DAILY #30 tablet 12/07/17 RX: Gabapentin [Neurontin -] 100 mg PO Q8H 12/07/17 RX: Lisinopril [Prinivil] 10 mg PO DAILY 12/07/17 RX: Zolpidem Tartrate 10 mg PO HS 12/07/17 PE: per resident's note CVS: S1S2 positive, SEM3/6 LEs: clean open wounds with 2 plus edema bl ECHO: Mild to moderate AR ASSESSMENT AND PLAN: Patient is a 57 y/o man with h/o Drug dependency , HTN, D heart failure, DM , h/ o GI bleed with partial gastrectomy in , DVT and PE s/p IVC filter , not on AC due to non compliance, pulm HTN, COPD , and iron def anemia who presented with SOB and worsening LE edema. He was found to have acute Diastolic heart failure # Acute diastolic heart failure, improved on lasix will continue and discharge the patient on Lasix 40mg po daily , continue BB # Iron def anemia: going for egd and colonoscopy as an outpatient by , since patient was not able to drink the the Golytly , therefore will have the EGD as an outpatient, will start the patient on Iron supplement with colace , will give a Rx for colonoscopy and patient needs to follow with # LE wounds: continue silvadine and clean gauze , f/u wound care clinic # Hx of DVT/ PE : not on AC due to non compliance. has IVC filter . # DM : cont SSI # Hx of COPD. Nebs as needed #Hx of opioid dependency : cont methadone . # prolonged QTc 502, due to methadone. monitor . avoid other QT prolonging meds will discharge the patient , follow as an outpatient with for EGD and Colonoscopy.
--- NOTE | 2017-12-07 17:09 | DS ---
Physical Exam: SUBJECTIVE: 57-year-old male with history of hypertension, diastolic heart failure, severe pulmonary hypertension, anemia, left lower extremities DVT with pulmonary embolus status post IVC filter placement 11/2014, NIDDM, COPD who is admitted for CHF exacerbation. Patient has no acute complaints. OBJECTIVE: Vital Signs Period Temp Pulse Resp BP Sys/Bethea Pulse Ox Last 24 Hr 97.9 F-98.8 F 72-88 16-20 120-170/80-88 96-96 PHYSICAL EXAM GENERAL: The patient is awake, alert, and fully oriented, in no acute distress. EYES: PERRL, extraocular movements intact, sclera anicteric, LUNGS: Expiratory wheezes HEART: Regular rate 3+ systolic murmur heard best at sternal border ABDOMEN: Soft, nontender, nondistended, normoactive bowel sounds EXTREMITIES: 2+ PT pulses B/L, shallow clean ulcerations bilaterally, left leg anterior river 10x5, right leg anterior river wrapping around to posterior of leg , +2 edema B/L PSYCH: Normal mood, normal affect. LABS Laboratory Results - last 24 hr 12/03/17 12/06/17 12/06/17 06:18 17:23 21:30 WBC RBC Hgb Hct MCV MCH MCHC RDW Plt Count MPV Sodium Potassium Chloride Carbon Dioxide Anion Gap BUN Creatinine Creat Clearance w eGFR POC Glucometer 161 105 Random Glucose Calcium Blood Type A POSITIVE Antibody Screen Negative Crossmatch See Detail 12/07/17 12/07/17 12/07/17 05:48 07:22 07:22 WBC 7.5 RBC 4.68 Hgb 8.3 L Hct 27.7 L MCV 59.3 L MCH 17.7 L MCHC 29.9 L RDW 20.2 H Plt Count 542 H MPV 8.2 Sodium 134 L Potassium 5.0 Chloride 99 Carbon Dioxide 29 Anion Gap 6 L BUN 21 H Creatinine 1.1 Creat Clearance w eGFR > 60 POC Glucometer 135 Random Glucose 142 H Calcium 9.0 Blood Type Antibody Screen Crossmatch 12/07/17 11:29 WBC RBC Hgb Hct MCV MCH MCHC RDW Plt Count MPV Sodium Potassium Chloride Carbon Dioxide Anion Gap BUN Creatinine Creat Clearance w eGFR POC Glucometer 291 Random Glucose Calcium Blood Type Antibody Screen Crossmatch HOSPITAL COURSE: Date of Admission:12/03/17 Patient is a 57-year-old male with history of hypertension, diastolic heart failure, severe pulmonary hypertension, anemia, left lower extremities DVT with pulmonary embolus status post IVC filter placement 11/2014, NIDDM, COPD who presented with increased swelling in his legs and shortness of breath. He has had chronic stasis ulcers in the past and is supposed to follow up with Wound Care clinic but on his own has decided to stop going. Vascular service, Dr. Kirby, has continued his treatment of silvadene and compression dressing. Patient will be referred to follow up with outpatient wound care. Patients SOB was due to his diastolic heart failure. He was given 40 mg of lasix IV. His weight dropped 2 kg and his SOB resolved. A repeat Echo was done and showed normal LV systolic function, left atrium mildly dilated, and mild mitral regurgitation and was read by Dr. Eagle. Patient will be referred to follow up with Cardiology outpatient. Patient will continue to take Lasix 40 mg po as an outpatient. Upon admission patients Hgb was 7.1. He has a history of iron deficiency anemia and has remained on Ferrous sulfate during his admission. He was transfused with 1 unit PRBC and his post transfusion Hgb was 8.1. Patient has history of past partial gastrectomy and positive family history of colon cancer. Patient decided he would do EGD and Colonoscopy as an outpatient. He was prescribed bowel prep and told to follow up with Dr. Lane by monday to schedule his procedures. Home medications were resumed as prescribed. Patient discharged home. CXR: No acute pathology Date of Discharge: 12/07/17 Minutes to complete discharge: 36 Discharge Summary Reason For Visit: CHF, ANEMIA Current Active Problems CHF (congestive heart failure) (Acute) Microcytic anemia (Acute) Anemia (Chronic) Pulmonary hypertension (Chronic) Ulcers of both lower legs (Chronic) Condition: Stable - Instructions Diet, Activity, Other Instructions: You came to the hospital because you had leg pain and shortness of breath. You have chronic ulcers on your legs that need to be followed by wound care. While in the hospital your legs were treated with silvadene and wrapped to keep compression. You need to continue to care for your wounds with the silvadene and wrap them. You need to follow up with the wound care clinic to ensure that your wounds heal. Your shortness of breath was due to your congestive heart failure. We gave you Lasix which helped remove some of the fluids from your lungs and this relieved your difficulty breathing. We have given you a new prescription for : Lasix 40 mg by mouth once a day Please follow up with a food management aide, Dr. Eagle, to treat your congestive heart failure. You also have anemia that you have been treating with iron. We gave you a blood transfusion to help raise your red blood cell levels. You need an Endoscopy and Colonoscopy to determine the cause of your bleeding. You should call the office of Dr. Lane on Monday to set up an appointment to see him. We have sent the prescription for the bowel prep (golytely) to your pharmacy. Please take it according to Dr. Heller instructions. You will receive these instructions during your follow up appointment. You should continue to take your home medications as prescribed. You should follow up with your primary care doctor in one week. You should return to the Emergency Department if you have any worsening of symptoms, chest pain, dizziness, vomiting, or trouble breathing. Referrals: Aldo Lane MD [Staff Physician] - 1 Week Ezekiel Eagle MD [Staff Physician] - Disposition: HOME - Home Medications Comprehensive Discharge Medication List: Ambulatory Orders Methadone [Dolophine -] 120 mg PO DAILY 03/13/16 metFORMIN HCL [Metformin HCl] 500 mg PO BID #60 tablet 03/21/16 Ferrous Sulfate [Feosol] 400 mg PO BID 09/23/16 Silver Sulfadiazine 1% Top Cr [Silvadene -] 1 applic TP PRN 09/23/16 Furosemide [Lasix -] 40 mg PO DAILY #30 tablet 12/07/17 Gabapentin [Neurontin -] 100 mg PO Q8H 12/07/17 Lisinopril [Prinivil] 10 mg PO DAILY 12/07/17 Peg 3350/Na Sulf,Bicarb,Cl/KCl [Golytely Solution -] 4,000 ml PO ONCE #1 soln.recon 12/07/17 Zolpidem Tartrate 10 mg PO HS 12/07/17 This patient is new to me today: No Emergency Visit: No Critical Care patient: No - Discharge Referral Referred to [facility] Med [facility] No
[2017-12-07] MEDS ORDERED: INSULIN (NOVOLOG) ASPART 100 UNITS/ML 10ML VIAL ONE (17:47)
[2017-12-07 17:57] VITALS: BP 134/78; PULSE 74; TEMP 98.7
[2017-12-07] MEDS ORDERED: PEG 3350/NA SULF BICARB CL/KCL 4000 ML SOLN.RECON PO ONE (18:00)
--- NOTE | 2017-12-10 21:26 | EKG ---
Test Reason : Blood Pressure : / mmHG Vent. Rate : 077 BPM Atrial Rate : 077 BPM P-R Int : 134 ms QRS Dur : 092 ms QT Int : 432 ms P-R-T Axes : 072 017 043 degrees QTc Int : 488 ms NORMAL SINUS RHYTHM PROLONGED QT ABNORMAL ECG WHEN COMPARED WITH ECG OF 02-DEC-2017 21:32, PREMATURE SUPRAVENTRICULAR COMPLEXES ARE NO LONGER PRESENT Confirmed by DIONY GAMEZ, CHARO ([id number]) on 12/10/2017 9:25:52 PM Referred By: RESIDENT Confirmed By:CHARO VORA MD
== END 2017-12-07 18:29 | disposition home or self-care (01) | DRG 292 ==
LOC: JER 19:57 → JERBED 12-03 02:03 → UNDOADMOB 12-03 02:09 → JERBED 12-03 02:09 → OBSVTOIN 12-03 09:54 → J8W 12-03 17:58
PROVIDERS: ADMIT Internal Medicine; ATTEND Internal Medicine
PROC: 30233N1 Transfusion of Nonautologous Red Blood Cells into Peripheral Vein, Percutaneous Approach (ICD-10-PCS; principal; 2017-12-04)
DX: I11.0 Hypertensive heart disease with heart failure (principal); J44.1 Chronic obstructive pulmonary disease with (acute) exacerbation; F11.20 Opioid dependence, uncomplicated; L03.115 Cellulitis of right lower limb; L97.928 Non-pressure chronic ulcer of unspecified part of left lower leg with other specified severity; L97.918 Non-pressure chronic ulcer of unspecified part of right lower leg with other specified severity; I82.91 Chronic embolism and thrombosis of unspecified vein; I50.31 Acute diastolic (congestive) heart failure; E11.51 Type 2 diabetes mellitus with diabetic peripheral angiopathy without gangrene; D64.9 Anemia, unspecified; D50.0 Iron deficiency anemia secondary to blood loss (chronic); I45.81 Long QT syndrome; I83.008 Varicose veins of unspecified lower extremity with ulcer other part of lower leg; I27.24 Chronic thromboembolic pulmonary hypertension; I27.20 Pulmonary hypertension, unspecified; F17.210 Nicotine dependence, cigarettes, uncomplicated; S81.809A Unspecified open wound, unspecified lower leg, initial encounter; E11.622 Type 2 diabetes mellitus with other skin ulcer; Z86.711 Personal history of pulmonary embolism
CPT/HCPCS: 36415; 36430; 71046-TC-FY; 80048; 80053; 81003; 81015; 82550; 82728; 82962; 83540; 83550; 83735; 83880; 84466; 84484; 85025; 85027; 85610; 86850; 86900; 86901; 86922; 93005; 93010; 93306-TC; 93970-TC; 94640; 99285-25; G0378; J1644; J7620; P9038; P9058

== ENCOUNTER 2020-08-02 15:42 | Inpatient (IN) | payer OTHER ==
[2020-08-02 18:21] LABS: PH,URINE 7.5 (5.0-8.0); URINE APPEARANCE CLEAR; URINE BILIRUBIN NEGATIVE (NEGATIVE); URINE COLOR YELLOW; URINE GLUCOSE (UA) NEGATIVE (NEGATIVE); URINE KETONE NEGATIVE (NEGATIVE); URINE LEUK ESTERASE NEGATIVE (NEGATIVE); URINE NITRITE NEGATIVE (NEGATIVE); URINE PROTEIN NEGATIVE (NEGATIVE)
[2020-08-02 18:22] LABS: INR 1.18 (0.83-1.09); PROTHROMBIN TIME (PATIENT) 14.2 SEC (9.7-13.0)
[2020-08-02 18:24] LABS: ACTIVATED PTT 30.6 SECONDS (25.2-36.5)
[2020-08-02 18:42] LABS: N-TERMINAL BNP 4497.2 pg/ml (5-125)
[2020-08-02 18:44] LABS: POTASSIUM 4.9 mmol/L (3.5-5.1)
[2020-08-02 18:46] LABS: ALBUMIN 2.9 g/dl (3.4-5.0); BLOOD UREA NITROGEN 11.8 mg/dL (7-18); CALCIUM 8.6 mg/dL (8.5-10.1)
[2020-08-02 18:50] LABS: CREATININE 1.1 mg/dL (0.55-1.3)
[2020-08-02 18:51] LABS: BILIRUBIN,TOTAL 0.4 mg/dL (0.2-1)
[2020-08-02] MEDS ORDERED: FUROSEMIDE 40 MG/4 ML INJECTABLE VIAL IVPUSH ONE ×2 (18:58→22:35)
[2020-08-02 19:04] LABS: HEMATOCRIT 19.7 % (35.4-49); MCHC 27.2 g/dl (32.0-35.9); MEAN CELL VOLUME 55.4 fl (80-96); MEAN PLT VOLUME 8.4 fl (7.5-11.1); PLATELET COUNT 546 K/MM3 (134-434); RBC 3.56 M/mm3 (4.00-5.60); RDW 20.5 % (11.9-15.9); WHITE BLOOD COUNT 5.1 K/mm3 (4.0-10.0)
[2020-08-02 19:05] LABS: MCH 15.1 pg (25.7-33.7)
[2020-08-02 19:07] LABS: HEMOGLOBIN 5.4 GM/dL (11.7-16.9)
[2020-08-02 19:08] LABS: ADD RBC MORPHOLOGY YES
[2020-08-02] MEDS ORDERED: FUROSEMIDE 40 MG/4 ML INJECTABLE VIAL ONE ×2 (19:39→23:08)
[2020-08-02 20:03] LABS: ANISOCYTOSIS 3+; MACROCYTOSIS 0; OVALOCYTE 1+; PLATELET ESTIMATE INCREASED; TARGET CELLS 1+
[2020-08-02 20:25] LABS: IRON SERUM 15 ug/dL (50-175); TOTAL IRON BINDING CAPACITY 441 ug/dL (250-450)
[2020-08-02] MEDS: INSULIN SLIDING SCALE (NOVOLOG) 1 VIAL SQ SCH (22:30)
[2020-08-03] MEDS: NICOTINE 14 MG/24 HOURS TOPICAL PATCH TD SCH ×2 (00:26→10:59)
[2020-08-03 03:26] LABS: HEMATOCRIT 22.5 % (35.4-49); MCHC 30.2 g/dl (32.0-35.9); MEAN CELL VOLUME 59.7 fl (80-96); MEAN PLT VOLUME 8.3 fl (7.5-11.1); PLATELET COUNT 514 K/MM3 (134-434); RBC 3.77 M/mm3 (4.00-5.60); RDW 28.6 % (11.9-15.9); WHITE BLOOD COUNT 6.1 K/mm3 (4.0-10.0)
[2020-08-03 03:30] LABS: HEMOGLOBIN 6.8 GM/dL (11.7-16.9)
[2020-08-03] MEDS ORDERED: ACETAMINOPHEN 1000 MG/100 ML VIAL (NON FORMULARY) IVPB ONE (04:01)
[2020-08-03] MEDS ORDERED: ACETAMINOPHEN INJECTION 100 ML IVPB ONE (04:30)
[2020-08-03] MEDS: INSULIN SLIDING SCALE (NOVOLOG) 1 VIAL SQ SCH ×4 (08:04→21:47)
[2020-08-03 09:35] LABS: BASO % 0.5 % (0-2.0); EOS % 0.7 % (0-4.5); HEMATOCRIT 27.5 % (35.4-49); HEMOGLOBIN 8.2 GM/dL (11.7-16.9); LYMPH % 9.3 % (8-40); MCHC 29.6 g/dl (32.0-35.9); MEAN CELL VOLUME 63.9 fl (80-96); MEAN PLT VOLUME 8.4 fl (7.5-11.1); MONO % 13.5 % (3.8-10.2); PLATELET COUNT 454 K/MM3 (134-434); RBC 4.31 M/mm3 (4.00-5.60); RDW 31.2 % (11.9-15.9); WHITE BLOOD COUNT 6.8 K/mm3 (4.0-10.0)
[2020-08-03 09:44] LABS: MCH 18.9 pg (25.7-33.7)
[2020-08-03] MEDS ORDERED: IRON SUCROSE INJECTION 200 MG in SODIUM CHLORIDE 90 ML IVPB ONE (10:00)
[2020-08-03 10:08] LABS: POTASSIUM 4.3 mmol/L (3.5-5.1)
[2020-08-03 10:11] LABS: ALBUMIN 2.5 g/dl (3.4-5.0)
[2020-08-03 10:12] LABS: BLOOD UREA NITROGEN 13.1 mg/dL (7-18); CALCIUM 8.7 mg/dL (8.5-10.1); MAGNESIUM 2.2 mg/dL (1.8-2.4)
[2020-08-03 10:15] LABS: PHOSPHOROUS 2.9 mg/dL (2.5-4.9)
[2020-08-03 10:16] LABS: CREATININE 1.2 mg/dL (0.55-1.3)
[2020-08-03 10:17] LABS: TOT PROT 7.6 g/dl (6.4-8.2)
[2020-08-03] MEDS: SILVER SULFADIAZINE 1% TOP CREAM 50 GM JAR TP SCH (10:59)
[2020-08-03] MEDS ORDERED: METHADONE HCL 10 MG TABLET PO ONE (12:28)
[2020-08-03] MEDS ORDERED: METHADONE 80 MG, METHADONE 30 MG PO ONE (13:15)
[2020-08-03] MEDS ORDERED: METHADONE HCL 40 MG DISPERSABLE TABLET ONE (14:47)
[2020-08-03] MEDS ORDERED: ACETAMINOPHEN 325 MG TABLET (FP) PO ONE (21:12)
[2020-08-03] MEDS ORDERED: ACETAMINOPHEN 325 MG TABLET (FP) ONE (21:36)
[2020-08-04] MEDS ORDERED: METHADONE HCL 40 MG DISPERSABLE TABLET PO SCH (06:00)
[2020-08-04] MEDS ORDERED: METHADONE HCL 40 MG DISPERSABLE TABLET ONE (06:05)
[2020-08-04] MEDS ORDERED: METHADONE HCL 10 MG TABLET ONE (06:06)
[2020-08-04] MEDS: METHADONE 80 MG, METHADONE 30 MG PO SCH (06:08)
[2020-08-04] MEDS: INSULIN SLIDING SCALE (NOVOLOG) 1 VIAL SQ SCH ×4 (06:17→21:36)
[2020-08-04 09:04] LABS: HEMATOCRIT 29.3 % (35.4-49); HEMOGLOBIN 8.9 GM/dL (11.7-16.9); MCHC 30.4 g/dl (32.0-35.9); MEAN CELL VOLUME 62.6 fl (80-96); MEAN PLT VOLUME 8.4 fl (7.5-11.1); PLATELET COUNT 544 K/MM3 (134-434); RBC 4.67 M/mm3 (4.00-5.60); RDW 30.9 % (11.9-15.9); WHITE BLOOD COUNT 7.3 K/mm3 (4.0-10.0)
[2020-08-04 09:20] LABS: MCH 19.1 pg (25.7-33.7)
[2020-08-04 09:23] LABS: POTASSIUM 4.5 mmol/L (3.5-5.1)
[2020-08-04 09:26] LABS: ALBUMIN 2.6 g/dl (3.4-5.0)
[2020-08-04 09:27] LABS: BLOOD UREA NITROGEN 14.9 mg/dL (7-18); MAGNESIUM 2.2 mg/dL (1.8-2.4)
[2020-08-04 09:28] LABS: CALCIUM 8.8 mg/dL (8.5-10.1)
[2020-08-04 09:30] LABS: CREATININE 1.1 mg/dL (0.55-1.3)
[2020-08-04 09:33] LABS: BILIRUBIN,TOTAL 0.5 mg/dL (0.2-1); TOT PROT 8.1 g/dl (6.4-8.2)
[2020-08-04] MEDS: NICOTINE 14 MG/24 HOURS TOPICAL PATCH TD SCH (10:48)
[2020-08-04] MEDS: FUROSEMIDE 40 MG TABLET (FP) PO SCH (10:48)
[2020-08-04 11:46] LABS: HIV INTERPRETATION NEGATIVE (NEGATIVE)
[2020-08-04] MEDS: SILVER SULFADIAZINE 1% TOP CREAM 50 GM JAR TP SCH (13:59)
[2020-08-04] MEDS ORDERED: BISACODYL 5 MG TABLET.DR (FP) PO ONE (16:00)
[2020-08-04] MEDS ORDERED: PEG 3350/NA SULF BICARB CL/KCL 4000 ML SOLN.RECON PO ONE (17:00)
[2020-08-04] MEDS ORDERED: ACETAMINOPHEN 1000 MG/100 ML VIAL (NON FORMULARY) IVPB ONE (18:47)
[2020-08-05] MEDS ORDERED: METHADONE HCL 40 MG DISPERSABLE TABLET ONE (05:02)
[2020-08-05] MEDS ORDERED: METHADONE HCL 10 MG TABLET ONE (05:03)
[2020-08-05] MEDS: METHADONE 80 MG, METHADONE 30 MG PO SCH (05:04)
[2020-08-05] MEDS: INSULIN SLIDING SCALE (NOVOLOG) 1 VIAL SQ SCH ×4 (07:07→21:48)
[2020-08-05] MEDS: FUROSEMIDE 40 MG TABLET (FP) PO SCH (09:56)
[2020-08-05] MEDS: NICOTINE 14 MG/24 HOURS TOPICAL PATCH TD SCH (09:56)
[2020-08-05 10:19] LABS: INR 1.19 (0.83-1.09); PROTHROMBIN TIME (PATIENT) 14.6 SEC (9.7-13.0)
[2020-08-05 10:22] LABS: ACTIVATED PTT 30.2 SECONDS (25.2-36.5)
[2020-08-05 10:31] LABS: POTASSIUM 4.4 mmol/L (3.5-5.1)
[2020-08-05 10:35] LABS: ALBUMIN 2.7 g/dl (3.4-5.0); BLOOD UREA NITROGEN 16.5 mg/dL (7-18); MAGNESIUM 2.3 mg/dL (1.8-2.4)
[2020-08-05 10:38] LABS: CREATININE 1.3 mg/dL (0.55-1.3); PHOSPHOROUS 3.8 mg/dL (2.5-4.9)
[2020-08-05 10:39] LABS: TOT PROT 8.2 g/dl (6.4-8.2)
[2020-08-05] MEDS ORDERED: IRON SUCROSE INJECTION 100 MG in SODIUM CHLORIDE 95 ML IVPB ONE (13:45)
[2020-08-05 14:12] LABS: HEP B CORE AB, TOT Negative (Negative)
[2020-08-05] MEDS ORDERED: ACETAMINOPHEN 1000 MG/100 ML VIAL (NON FORMULARY) IVPB ONE (15:59)
[2020-08-05] MEDS ORDERED: PT OWN MED DRAWER 7, Y5N ONE (16:14)
[2020-08-05] MEDS: SILVER SULFADIAZINE 1% TOP CREAM 50 GM JAR TP SCH (16:23)
[2020-08-05 17:45] LABS: HEMATOCRIT 30.2 % (35.4-49); HEMOGLOBIN 8.9 GM/dL (11.7-16.9); MCHC 29.4 g/dl (32.0-35.9); MEAN CELL VOLUME 64.1 fl (80-96); MEAN PLT VOLUME 8.3 fl (7.5-11.1); PLATELET COUNT 549 K/MM3 (134-434); RBC 4.71 M/mm3 (4.00-5.60); RDW 32.1 % (11.9-15.9); WHITE BLOOD COUNT 8.6 K/mm3 (4.0-10.0)
[2020-08-05 18:15] LABS: MCH 18.8 pg (25.7-33.7)
[2020-08-05] MEDS ORDERED: PEG 3350/NA SULF BICARB CL/KCL 4000 ML SOLN.RECON PO ONE (18:47)
[2020-08-06] MEDS ORDERED: METHADONE HCL 40 MG DISPERSABLE TABLET ONE (05:46)
[2020-08-06] MEDS ORDERED: METHADONE HCL 10 MG TABLET ONE (05:46)
[2020-08-06] MEDS: METHADONE 80 MG, METHADONE 30 MG PO SCH ×2 (05:56→06:32)
[2020-08-06] MEDS: INSULIN SLIDING SCALE (NOVOLOG) 1 VIAL SQ SCH ×4 (06:11→21:45)
[2020-08-06 07:59] LABS: HEMOGLOBIN 8.3 GM/dL (11.7-16.9); MCHC 28.8 g/dl (32.0-35.9); MEAN CELL VOLUME 65.2 fl (80-96); MEAN PLT VOLUME 8.4 fl (7.5-11.1); PLATELET COUNT 430 K/MM3 (134-434); RBC 4.44 M/mm3 (4.00-5.60); RDW 32.8 % (11.9-15.9); WHITE BLOOD COUNT 4.7 K/mm3 (4.0-10.0)
[2020-08-06 08:02] LABS: INR 1.24 (0.83-1.09); PROTHROMBIN TIME (PATIENT) 15.1 SEC (9.7-13.0)
[2020-08-06 08:04] LABS: ACTIVATED PTT 37.4 SECONDS (25.2-36.5)
[2020-08-06 08:10] LABS: POTASSIUM 4.3 mmol/L (3.5-5.1)
[2020-08-06 08:17] LABS: MCH 18.8 pg (25.7-33.7)
[2020-08-06 08:32] LABS: CALCIUM 8.5 mg/dL (8.5-10.1)
[2020-08-06 08:33] LABS: ALBUMIN 2.6 g/dl (3.4-5.0); BLOOD UREA NITROGEN 16.7 mg/dL (7-18)
[2020-08-06 08:36] LABS: BILIRUBIN,TOTAL 0.4 mg/dL (0.2-1); CREATININE 1.3 mg/dL (0.55-1.3); TOT PROT 7.6 g/dl (6.4-8.2)
[2020-08-06] MEDS ORDERED: IRON SUCROSE INJECTION 100 MG in SODIUM CHLORIDE 95 ML IVPB ONE (10:00)
[2020-08-06] MEDS: NICOTINE 14 MG/24 HOURS TOPICAL PATCH TD SCH (10:14)
[2020-08-06] MEDS: SILVER SULFADIAZINE 1% TOP CREAM 50 GM JAR TP SCH (10:14)
[2020-08-06] MEDS: FUROSEMIDE 40 MG TABLET (FP) PO SCH (10:14)
[2020-08-06] MEDS ORDERED: BISACODYL 5 MG TABLET.DR (FP) PO ONE ×2 (16:00)
[2020-08-06] MEDS ORDERED: ACETAMINOPHEN 1000 MG/100 ML VIAL (NON FORMULARY) IVPB PRN (16:05)
[2020-08-06] MEDS ORDERED: ACETAMINOPHEN 325 MG TABLET (FP) PO ONE (16:09)
[2020-08-06] MEDS ORDERED: POLYETHYLENE GLYCOL 3350 255 GM BTL PO ONE (17:00)
[2020-08-07] MEDS ORDERED: METHADONE HCL 10 MG TABLET ONE (05:01)
[2020-08-07] MEDS ORDERED: METHADONE HCL 40 MG DISPERSABLE TABLET ONE (05:01)
[2020-08-07] MEDS: METHADONE 80 MG, METHADONE 30 MG PO SCH (05:02)
[2020-08-07] MEDS: INSULIN SLIDING SCALE (NOVOLOG) 1 VIAL SQ SCH ×4 (06:07→22:55)
[2020-08-07 08:36] LABS: INR 1.24 (0.83-1.09); PROTHROMBIN TIME (PATIENT) 15.1 SEC (9.7-13.0)
[2020-08-07 08:37] LABS: HEMATOCRIT 28.2 % (35.4-49); HEMOGLOBIN 8.2 GM/dL (11.7-16.9); MCHC 29.2 g/dl (32.0-35.9); MEAN CELL VOLUME 64.7 fl (80-96); MEAN PLT VOLUME 8.4 fl (7.5-11.1); PLATELET COUNT 382 K/MM3 (134-434); RBC 4.36 M/mm3 (4.00-5.60); RDW 33.5 % (11.9-15.9); WHITE BLOOD COUNT 4.4 K/mm3 (4.0-10.0)
[2020-08-07 08:38] LABS: ACTIVATED PTT 30.1 SECONDS (25.2-36.5)
[2020-08-07 08:42] LABS: MCH 18.9 pg (25.7-33.7)
[2020-08-07 09:03] LABS: POTASSIUM 4.4 mmol/L (3.5-5.1)
[2020-08-07 09:18] LABS: ALBUMIN 2.6 g/dl (3.4-5.0); BLOOD UREA NITROGEN 12.4 mg/dL (7-18); CALCIUM 8.6 mg/dL (8.5-10.1); MAGNESIUM 2.4 mg/dL (1.8-2.4)
[2020-08-07 09:21] LABS: CREATININE 1.2 mg/dL (0.55-1.3); PHOSPHOROUS 3.5 mg/dL (2.5-4.9)
[2020-08-07 09:22] LABS: BILIRUBIN,TOTAL 0.9 mg/dL (0.2-1)
[2020-08-07 09:23] LABS: TOT PROT 7.7 g/dl (6.4-8.2)
[2020-08-07] MEDS: SILVER SULFADIAZINE 1% TOP CREAM 50 GM JAR TP SCH (10:27)
[2020-08-07] MEDS: FUROSEMIDE 40 MG TABLET (FP) PO SCH (10:27)
[2020-08-07] MEDS: NICOTINE 14 MG/24 HOURS TOPICAL PATCH TD SCH (10:27)
[2020-08-07] MEDS ORDERED: PT OWN MED DRAWER 7, Y5N ONE (14:33)
[2020-08-07] MEDS: Methylnaltrexone Bromide 12 MG/0.6 ML KIT SQ SCH (17:46)
[2020-08-07] MEDS ORDERED: ACETAMINOPHEN 650 MG/20.3 ML ORAL SOLUTION (CUPS) PO ONE (21:57)
[2020-08-07] MEDS: POLYETHYLENE GLYCOL 3350 119 GM BTL PO SCH (22:22)
[2020-08-08] MEDS ORDERED: METHADONE HCL 40 MG DISPERSABLE TABLET ONE (05:39)
[2020-08-08] MEDS ORDERED: METHADONE HCL 10 MG TABLET ONE (05:39)
[2020-08-08] MEDS: POLYETHYLENE GLYCOL 3350 119 GM BTL PO SCH ×3 (05:41→22:41)
[2020-08-08] MEDS: METHADONE 80 MG, METHADONE 30 MG PO SCH (05:41)
[2020-08-08] MEDS: INSULIN SLIDING SCALE (NOVOLOG) 1 VIAL SQ SCH ×4 (07:42→22:40)
[2020-08-08 08:50] LABS: HEMATOCRIT 27.3 % (35.4-49); HEMOGLOBIN 7.8 GM/dL (11.7-16.9); MCHC 28.7 g/dl (32.0-35.9); MEAN CELL VOLUME 65.4 fl (80-96); MEAN PLT VOLUME 8.6 fl (7.5-11.1); PLATELET COUNT 390 K/MM3 (134-434); RBC 4.17 M/mm3 (4.00-5.60); RDW 33.8 % (11.9-15.9)
[2020-08-08 08:51] LABS: MCH 18.8 pg (25.7-33.7)
[2020-08-08 09:07] LABS: POTASSIUM 4.7 mmol/L (3.5-5.1)
[2020-08-08 09:14] LABS: CALCIUM 8.7 mg/dL (8.5-10.1)
[2020-08-08 09:15] LABS: BLOOD UREA NITROGEN 18.2 mg/dL (7-18)
[2020-08-08 09:18] LABS: CREATININE 1.3 mg/dL (0.55-1.3)
[2020-08-08] MEDS: NICOTINE 14 MG/24 HOURS TOPICAL PATCH TD SCH (10:00)
[2020-08-08] MEDS: FUROSEMIDE 40 MG TABLET (FP) PO SCH (10:00)
[2020-08-08] MEDS: Methylnaltrexone Bromide 12 MG/0.6 ML KIT SQ SCH (10:00)
[2020-08-08] MEDS: SILVER SULFADIAZINE 1% TOP CREAM 50 GM JAR TP SCH ×2 (10:01→16:01)
[2020-08-08] MEDS ORDERED: MAGNESIUM CITRATE 300 ML BOTTLE PO ONE (13:00)
[2020-08-08] MEDS ORDERED: LORazepam 1 MG TABLET PO ONE (16:30)
[2020-08-09] MEDS ORDERED: PT OWN MED DRAWER 7, Y5N ONE ×3 (05:32→10:53)
[2020-08-09] MEDS ORDERED: METHADONE HCL 10 MG TABLET ONE (05:51)
[2020-08-09] MEDS ORDERED: METHADONE HCL 40 MG DISPERSABLE TABLET ONE (05:51)
[2020-08-09] MEDS: METHADONE 80 MG, METHADONE 30 MG PO SCH (05:57)
[2020-08-09] MEDS: POLYETHYLENE GLYCOL 3350 119 GM BTL PO SCH ×3 (05:57→21:28)
[2020-08-09] MEDS: INSULIN SLIDING SCALE (NOVOLOG) 1 VIAL SQ SCH ×4 (06:09→22:17)
[2020-08-09] MEDS ORDERED: INSULIN (NOVOLOG) ASPART 100 UNITS/ML 10ML VIAL ONE (07:35)
[2020-08-09] MEDS ORDERED: INSULIN (LEVEMIR) 100 UNITS/ML UNITS SQ ONE (07:35)
[2020-08-09 09:03] LABS: BASO % 1.5 % (0-2.0); EOS % 3.2 % (0-4.5); HEMOGLOBIN 8.1 GM/dL (11.7-16.9); LYMPH % 24.7 % (8-40); MCHC 29.8 g/dl (32.0-35.9); MEAN CELL VOLUME 65.9 fl (80-96); MEAN PLT VOLUME 8.4 fl (7.5-11.1); MONO % 13.5 % (3.8-10.2); NEUT % 57.1 % (42.8-82.8); PLATELET COUNT 353 K/MM3 (134-434); RDW 34.1 % (11.9-15.9); WHITE BLOOD COUNT 5.5 K/mm3 (4.0-10.0)
[2020-08-09 09:07] LABS: MCH 19.7 pg (25.7-33.7)
[2020-08-09 09:26] LABS: CALCIUM 8.6 mg/dL (8.5-10.1); POTASSIUM 4.8 mmol/L (3.5-5.1)
[2020-08-09 09:28] LABS: BLOOD UREA NITROGEN 27.4 mg/dL (7-18)
[2020-08-09 09:31] LABS: CREATININE 1.6 mg/dL (0.55-1.3)
[2020-08-09] MEDS: SILVER SULFADIAZINE 1% TOP CREAM 50 GM JAR TP SCH (10:55)
[2020-08-09] MEDS: Methylnaltrexone Bromide 12 MG/0.6 ML KIT SQ SCH (10:55)
[2020-08-09] MEDS: FUROSEMIDE 40 MG TABLET (FP) PO SCH (10:55)
[2020-08-09] MEDS: NICOTINE 14 MG/24 HOURS TOPICAL PATCH TD SCH (10:55)
[2020-08-09 12:00] LABS: ANISOCYTOSIS 3+; MACROCYTOSIS 1+; OVALOCYTE 2+; PLATELET ESTIMATE NORMAL
[2020-08-09] MEDS ORDERED: BISACODYL 5 MG TABLET.DR (FP) PO ONE (15:00)
[2020-08-09] MEDS ORDERED: PEG 3350/NA SULF BICARB CL/KCL 4000 ML SOLN.RECON PO ONE ×2 (16:00→17:30)
[2020-08-09] MEDS ORDERED: SODIUM PHOSPHATE/NA BIPHOS 133 ML ENEMA PR ONE (17:30)
[2020-08-09 19:44] VITALS: BMI 23.4
[2020-08-09] MEDS: SODIUM PHOSPHATE/NA BIPHOS 133 ML ENEMA RC SCH (22:17)
[2020-08-10] MEDS: SODIUM PHOSPHATE/NA BIPHOS 133 ML ENEMA RC SCH (03:50)
[2020-08-10] MEDS ORDERED: METHADONE HCL 40 MG DISPERSABLE TABLET ONE (05:54)
[2020-08-10] MEDS ORDERED: METHADONE HCL 10 MG TABLET ONE (05:54)
[2020-08-10] MEDS: METHADONE 80 MG, METHADONE 30 MG PO SCH (06:18)
[2020-08-10] MEDS: POLYETHYLENE GLYCOL 3350 119 GM BTL PO SCH ×3 (06:18→21:12)
[2020-08-10] MEDS: INSULIN SLIDING SCALE (NOVOLOG) 1 VIAL SQ SCH ×4 (06:20→21:13)
[2020-08-10 09:22] LABS: HEMATOCRIT 28.1 % (35.4-49); HEMOGLOBIN 8.5 GM/dL (11.7-16.9); MCHC 30.3 g/dl (32.0-35.9); MEAN CELL VOLUME 65.1 fl (80-96); MEAN PLT VOLUME 8.3 fl (7.5-11.1); PLATELET COUNT 391 K/MM3 (134-434); RBC 4.32 M/mm3 (4.00-5.60); RDW 34.8 % (11.9-15.9); WHITE BLOOD COUNT 5.5 K/mm3 (4.0-10.0)
[2020-08-10] MEDS: NICOTINE 14 MG/24 HOURS TOPICAL PATCH TD SCH (09:22)
[2020-08-10 09:35] LABS: MCH 19.7 pg (25.7-33.7)
[2020-08-10 09:46] LABS: POTASSIUM 4.3 mmol/L (3.5-5.1)
[2020-08-10 09:56] LABS: CALCIUM 8.9 mg/dL (8.5-10.1)
[2020-08-10 09:57] LABS: BLOOD UREA NITROGEN 17.9 mg/dL (7-18)
[2020-08-10 09:59] LABS: CREATININE 1.2 mg/dL (0.55-1.3)
[2020-08-10 11:45] LABS: ANISOCYTOSIS 1+; MACROCYTOSIS 0; OVALOCYTE 2+; PLATELET ESTIMATE NORMAL
[2020-08-10] MEDS: SILVER SULFADIAZINE 1% TOP CREAM 50 GM JAR TP SCH (17:00)
[2020-08-10] MEDS ORDERED: ACETAMINOPHEN 325 MG TABLET (FP) PO PRN (21:12)
[2020-08-11] MEDS ORDERED: METHADONE HCL 40 MG DISPERSABLE TABLET ONE (05:40)
[2020-08-11] MEDS ORDERED: METHADONE HCL 10 MG TABLET ONE (05:41)
[2020-08-11] MEDS: METHADONE 80 MG, METHADONE 30 MG PO SCH (05:44)
[2020-08-11] MEDS: POLYETHYLENE GLYCOL 3350 119 GM BTL PO SCH ×2 (05:48→15:03)
[2020-08-11] MEDS: INSULIN SLIDING SCALE (NOVOLOG) 1 VIAL SQ SCH ×2 (06:00→11:41)
[2020-08-11 07:41] LABS: HEMATOCRIT 26.5 % (35.4-49); HEMOGLOBIN 7.9 GM/dL (11.7-16.9); MCHC 29.8 g/dl (32.0-35.9); MEAN CELL VOLUME 66.4 fl (80-96); MEAN PLT VOLUME 8.3 fl (7.5-11.1); PLATELET COUNT 310 K/MM3 (134-434); RBC 3.99 M/mm3 (4.00-5.60); RDW 35.2 % (11.9-15.9); WHITE BLOOD COUNT 5.2 K/mm3 (4.0-10.0)
[2020-08-11 07:45] LABS: MCH 19.8 pg (25.7-33.7)
[2020-08-11 08:18] LABS: POTASSIUM 4.6 mmol/L (3.5-5.1)
[2020-08-11 08:24] LABS: BLOOD UREA NITROGEN 20.2 mg/dL (7-18)
[2020-08-11 08:25] LABS: ALBUMIN 2.4 g/dl (3.4-5.0); CALCIUM 8.8 mg/dL (8.5-10.1)
[2020-08-11 08:27] LABS: BILIRUBIN,TOTAL 0.4 mg/dL (0.2-1); CREATININE 1.1 mg/dL (0.55-1.3); TOT PROT 6.9 g/dl (6.4-8.2)
[2020-08-11] MEDS: NICOTINE 14 MG/24 HOURS TOPICAL PATCH TD SCH (10:30)
[2020-08-11] MEDS: SILVER SULFADIAZINE 1% TOP CREAM 50 GM JAR TP SCH (11:42)
[2020-08-11 16:05] VITALS: BP 130/79; PULSE 83; TEMP 98.1
== END 2020-08-11 16:35 | disposition home or self-care (01) | DRG 811 ==
LOC: JER 15:42 → JERBED 22:24 → J5S 08-04 02:41
PROVIDERS: ADMIT Internal Medicine
PROC: 30233N1 Transfusion of Nonautologous Red Blood Cells into Peripheral Vein, Percutaneous Approach (ICD-10-PCS; 2020-08-02)
PROC: 0DB68ZX Excision of Stomach, Via Natural or Artificial Opening Endoscopic, Diagnostic (ICD-10-PCS; principal; 2020-08-05 14:19)
PROC: 0DJD8ZZ Inspection of Lower Intestinal Tract, Via Natural or Artificial Opening Endoscopic (ICD-10-PCS; 2020-08-07)
PROC: 0DBN8ZX Excision of Sigmoid Colon, Via Natural or Artificial Opening Endoscopic, Diagnostic (ICD-10-PCS; 2020-08-10)
PROC: 0DBL8ZX Excision of Transverse Colon, Via Natural or Artificial Opening Endoscopic, Diagnostic (ICD-10-PCS; 2020-08-10)
PROC: 0DBH7ZX Excision of Cecum, Via Natural or Artificial Opening, Diagnostic (ICD-10-PCS; 2020-08-10)
DX: D50.9 Iron deficiency anemia, unspecified (principal); I50.33 Acute on chronic diastolic (congestive) heart failure; F11.20 Opioid dependence, uncomplicated; E46 Unspecified protein-calorie malnutrition; I11.0 Hypertensive heart disease with heart failure; E11.9 Type 2 diabetes mellitus without complications; E88.09 Other disorders of plasma-protein metabolism, not elsewhere classified; I87.8 Other specified disorders of veins; K29.70 Gastritis, unspecified, without bleeding; R59.0 Localized enlarged lymph nodes; K63.5 Polyp of colon; D12.0 Benign neoplasm of cecum; I27.20 Pulmonary hypertension, unspecified; F17.210 Nicotine dependence, cigarettes, uncomplicated; K31.9 Disease of stomach and duodenum, unspecified
CPT/HCPCS: 36415; 36430; 71045-TC-FY; 71250-TC; 74176-TC; 74181-TC; 76705-TC; 80048; 80053; 81003; 82272; 82378; 82728; 82962; 83540; 83550; 83735; 83880; 84100; 84153; 84155; 84165; 84443; 84484; 85025; 85027; 85045; 85610; 85730; 86704; 86706; 86707; 86708; 86709; 86803; 86850; 86900; 86901; 86922; 87086; 87340; 87389; 87804; 88305-TC; 93005; 93010; 93306-TC; 97116-GP; 97161-GP; 99285-25; C9803; J0131; J1756; P9058; U0003

== ENCOUNTER 2021-05-07 11:11 | Inpatient (IN) | payer OTHER ==
[2021-05-07] MEDS ORDERED: VANCOMYCIN 1 GM in D5W (PRE-DOCKED) 1,000 MG/250 ML IVPB ONE (12:42)
[2021-05-07] MEDS ORDERED: CEFEPIME HCL/D5W 2 GM/50 ML BAG IVPB ONE (12:46)
[2021-05-07] MEDS ORDERED: CEFEPIME 2 GM/100 ML BAG IVPB ONE (13:38)
[2021-05-07] MEDS ORDERED: VANCOMYCIN 1 GRAM (PRE-DOCKED) 1,000 MG/250 ML BAG IVPB ONE (13:38)
[2021-05-07 14:27] LABS: BASO % 1.3 % (0-2.0); HEMATOCRIT 18.3 % (35.4-49); LYMPH % 16.8 % (8-40); MCHC 28.3 g/dl (32.0-35.9); MEAN CELL VOLUME 56.4 fl (80-96); MEAN PLT VOLUME 6.4 fl (7.5-11.1); MONO % 12.4 % (3.8-10.2); NEUT % 67.5 % (42.8-82.8); PLATELET COUNT 526 10^3/uL (134-434); RBC 3.24 M/mm3 (4.00-5.60); RDW 19.9 % (11.9-15.9); WHITE BLOOD COUNT 5.7 K/mm3 (4.0-10.0)
[2021-05-07 14:33] LABS: HEMOGLOBIN 5.2 GM/dL (11.7-16.9)
[2021-05-07 14:49] LABS: CALCIUM 8.1 mg/dL (8.5-10.1)
[2021-05-07 14:50] LABS: ALBUMIN 2.2 g/dl (3.4-5.0); BLOOD UREA NITROGEN 16.2 mg/dL (7-18); CO2 26 mmol/L (21-32); GLUCOSE,RANDOM 143 mg/dL (74-106)
[2021-05-07 14:53] LABS: SGOT/AST 8 U/L (15-37); SGPT/ALT 9 U/L (13-61)
[2021-05-07 14:54] LABS: BILIRUBIN,TOTAL 0.2 mg/dL (0.2-1); TOT PROT 7.3 g/dl (6.4-8.2)
[2021-05-07 14:55] LABS: ALK PHOS 106 U/L (45-117)
[2021-05-07 14:58] LABS: ANION GAP 4 MMOL/L (8-16); CHLORIDE 108 mmol/L (98-107); SODIUM 137 mmol/L (136-145)
[2021-05-07 15:02] LABS: ANISOCYTOSIS 3+; MACROCYTOSIS 1+; OVALOCYTE 1+; PLATELET ESTIMATE INCREASED
[2021-05-07] MEDS: SODIUM CHLORIDE 1,000 ML IV SCH (17:56)
[2021-05-07] MEDS ORDERED: CEFEPIME 1 GM/100 ML BAG IVPB ONE ×2 (18:45→21:52)
[2021-05-07] MEDS ORDERED: CEFEPIME HCL/D5W 2 GM/50 ML BAG IVPB SCH (22:00)
[2021-05-07 22:14] LABS: MCHC 29.6 g/dl (32.0-35.9); MEAN CELL VOLUME 58.9 fl (80-96); MEAN PLT VOLUME 6.4 fl (7.5-11.1); PLATELET COUNT 462 10^3/uL (134-434); RDW 22.2 % (11.9-15.9); WHITE BLOOD COUNT 6.7 K/mm3 (4.0-10.0)
[2021-05-07 22:20] LABS: INR 1.34 (0.83-1.09)
[2021-05-07 22:37] LABS: MCH 17.5 pg (25.7-33.7)
[2021-05-07 22:38] LABS: HEMOGLOBIN 5.9 GM/dL (11.7-16.9)
[2021-05-08] MEDS: CEFEPIME 1 GM in DEXTROSE 5%-WATER - 1 GM/50 ML IVPB IVPB SCH ×4 (00:12→20:49)
[2021-05-08 00:52] VITALS: BMI 25.8
[2021-05-08] MEDS ORDERED: DEXTROSE 5%-WATER - 50 ML IVPB ONE ×3 (02:27→18:42)
[2021-05-08] MEDS ORDERED: CEFEPIME HCL 1 GM VIAL (RESTRICTED TO ID) ONE ×3 (02:27→18:42)
[2021-05-08] MEDS: SODIUM CHLORIDE 1,000 ML IV SCH (02:34)
[2021-05-08] MEDS ORDERED: ASPIRIN COATED 81 MG TABLET.EC PO SCH (10:00)
[2021-05-08] MEDS ORDERED: VANCOMYCIN/WATER BAGS 1,250 MG/250 ML BAG IVPB SCH (10:00)
[2021-05-08 11:04] LABS: CALCIUM 8.4 mg/dL (8.5-10.1)
[2021-05-08 11:05] LABS: ALBUMIN 2.2 g/dl (3.4-5.0); BLOOD UREA NITROGEN 12.9 mg/dL (7-18)
[2021-05-08 11:09] LABS: BILIRUBIN,TOTAL 0.6 mg/dL (0.2-1); TOT PROT 7.1 g/dl (6.4-8.2)
[2021-05-08] MEDS ORDERED: methaDONE HCL 10 MG TABLET PO SCH (12:45)
[2021-05-08] MEDS ORDERED: methaDONE HCL 10 MG TABLET ONE (12:59)
[2021-05-08] MEDS ORDERED: methaDONE HCL 40 MG DISPERSABLE TABLET ONE (13:00)
[2021-05-08] MEDS: methaDONE 80 MG, methaDONE 20 MG PO SCH (13:04)
[2021-05-08] MEDS ORDERED: PT OWN MED DRAWER 7, Y5N ONE (18:43)
[2021-05-08 21:48] LABS: BASO % 0.8 % (0-2.0); EOS % 3.4 % (0-4.5); HEMATOCRIT 24.2 % (35.4-49); HEMOGLOBIN 7.4 GM/dL (11.7-16.9); MCHC 30.5 g/dl (32.0-35.9); MEAN CELL VOLUME 62.3 fl (80-96); MEAN PLT VOLUME 7.9 fl (7.5-11.1); MONO % 16.7 % (3.8-10.2); NEUT % 60.1 % (42.8-82.8); PLATELET COUNT 452 10^3/uL (134-434); RBC 3.88 M/mm3 (4.00-5.60); RDW 28.5 % (11.9-15.9); WHITE BLOOD COUNT 6.4 K/mm3 (4.0-10.0)
[2021-05-08] MEDS: VANCOMYCIN/WATER BAGS 1,250 MG/250 ML BAG IVPB SCH (21:51)
[2021-05-08] MEDS: ACETAMINOPHEN 500 MG TABLET (FP) PO PRN (23:52)
[2021-05-09] MEDS ORDERED: DEXTROSE 5%-WATER - 50 ML IVPB ONE ×3 (02:11→15:56)
[2021-05-09] MEDS ORDERED: CEFEPIME HCL 1 GM VIAL (RESTRICTED TO ID) ONE ×3 (02:11→15:56)
[2021-05-09] MEDS: CEFEPIME 1 GM in DEXTROSE 5%-WATER - 1 GM/50 ML IVPB IVPB SCH ×3 (02:35→17:55)
[2021-05-09] MEDS: VANCOMYCIN/WATER BAGS 1,250 MG/250 ML BAG IVPB SCH ×2 (05:25→16:06)
[2021-05-09] MEDS ORDERED: methaDONE HCL 10 MG TABLET ONE (05:26)
[2021-05-09] MEDS ORDERED: methaDONE HCL 40 MG DISPERSABLE TABLET ONE (05:26)
[2021-05-09] MEDS: methaDONE 80 MG, methaDONE 20 MG PO SCH (05:59)
[2021-05-09] MEDS ORDERED: methaDONE HCL 10 MG TABLET PO SCH (06:00)
[2021-05-09 08:01] LABS: CALCIUM 8.4 mg/dL (8.5-10.1)
[2021-05-09 08:02] LABS: ALBUMIN 2.3 g/dl (3.4-5.0); BLOOD UREA NITROGEN 15.4 mg/dL (7-18)
[2021-05-09 08:05] LABS: BASO % 0.9 % (0-2.0); CREATININE 1.3 mg/dL (0.55-1.3); EOS % 4.3 % (0-4.5); HEMOGLOBIN 8.2 GM/dL (11.7-16.9); LYMPH % 15.2 % (8-40); MCHC 30.5 g/dl (32.0-35.9); MEAN CELL VOLUME 63.5 fl (80-96); MONO % 15.2 % (3.8-10.2); NEUT % 64.4 % (42.8-82.8); PLATELET COUNT 497 10^3/uL (134-434); RBC 4.26 M/mm3 (4.00-5.60); RDW 27.9 % (11.9-15.9); WHITE BLOOD COUNT 6.9 K/mm3 (4.0-10.0)
[2021-05-09 08:06] LABS: BILIRUBIN,TOTAL 0.6 mg/dL (0.2-1)
[2021-05-09 08:33] LABS: MCH 19.4 pg (25.7-33.7)
[2021-05-09] MEDS: PANTOPRAZOLE 40 MG TABLET PO SCH (09:05)
[2021-05-09] MEDS: FERROUS SO4 325 MG TABLET (FP) PO SCH ×2 (12:06→17:55)
[2021-05-09] MEDS: SODIUM CHLORIDE 1,000 ML IV SCH (12:06)
[2021-05-09] MEDS: ACETAMINOPHEN 500 MG TABLET (FP) PO PRN (19:30)
[2021-05-10] MEDS ORDERED: CEFEPIME HCL 1 GM VIAL (RESTRICTED TO ID) ONE ×3 (03:18→16:24)
[2021-05-10] MEDS ORDERED: DEXTROSE 5%-WATER - 50 ML IVPB ONE ×3 (03:18→16:24)
[2021-05-10] MEDS: CEFEPIME 1 GM in DEXTROSE 5%-WATER - 1 GM/50 ML IVPB IVPB SCH ×3 (03:21→17:46)
[2021-05-10] MEDS ORDERED: PT OWN MED DRAWER 7, Y5N ONE (04:27)
[2021-05-10] MEDS ORDERED: methaDONE HCL 10 MG TABLET ONE (05:26)
[2021-05-10] MEDS ORDERED: methaDONE HCL 40 MG DISPERSABLE TABLET ONE (05:26)
[2021-05-10] MEDS: methaDONE 80 MG, methaDONE 20 MG PO SCH (05:27)
[2021-05-10] MEDS: ACETAMINOPHEN 500 MG TABLET (FP) PO PRN (05:27)
[2021-05-10] MEDS: VANCOMYCIN/WATER BAGS 1,250 MG/250 ML BAG IVPB SCH (05:30)
[2021-05-10] MEDS: POLYETHYLENE GLYCOL (HEALTHYLAX) 3350 17 GM PACKET PO SCH (09:12)
[2021-05-10] MEDS: FERROUS SO4 325 MG TABLET (FP) PO SCH ×3 (09:12→17:46)
[2021-05-10] MEDS: PANTOPRAZOLE 40 MG TABLET PO SCH (09:12)
[2021-05-10] MEDS: MULTIVITAMINS (DAILY MVI) TABLET (FP) PO SCH (09:12)
[2021-05-10 09:26] LABS: BASO % 1.2 % (0-2.0); HEMATOCRIT 29.1 % (35.4-49); HEMOGLOBIN 8.6 GM/dL (11.7-16.9); LYMPH % 12.6 % (8-40); MCHC 29.7 g/dl (32.0-35.9); MEAN CELL VOLUME 64.1 fl (80-96); MEAN PLT VOLUME 8.2 fl (7.5-11.1); MONO % 9.7 % (3.8-10.2); NEUT % 72.5 % (42.8-82.8); PLATELET COUNT 543 10^3/uL (134-434); RBC 4.53 M/mm3 (4.00-5.60); RDW 29.7 % (11.9-15.9); WHITE BLOOD COUNT 7.1 K/mm3 (4.0-10.0)
[2021-05-10 09:57] LABS: BLOOD UREA NITROGEN 22.1 mg/dL (7-18)
[2021-05-10 09:58] LABS: CALCIUM 8.6 mg/dL (8.5-10.1)
[2021-05-10 10:00] LABS: CREATININE 1.2 mg/dL (0.55-1.3)
[2021-05-10] MEDS: SODIUM CHLORIDE 1,000 ML IV SCH (14:52)
[2021-05-10] MEDS: HYDROCHLOROTHIAZIDE 25 MG TABLET (FP) PO SCH (16:26)
[2021-05-11] MEDS ORDERED: CEFEPIME HCL 1 GM VIAL (RESTRICTED TO ID) ONE ×3 (02:32→16:35)
[2021-05-11] MEDS ORDERED: DEXTROSE 5%-WATER - 50 ML IVPB ONE ×3 (02:32→16:35)
[2021-05-11] MEDS: CEFEPIME 1 GM in DEXTROSE 5%-WATER - 1 GM/50 ML IVPB IVPB SCH ×3 (03:13→17:09)
[2021-05-11] MEDS ORDERED: methaDONE HCL 10 MG TABLET ONE (05:09)
[2021-05-11] MEDS ORDERED: methaDONE HCL 40 MG DISPERSABLE TABLET ONE (05:10)
[2021-05-11] MEDS: methaDONE 80 MG, methaDONE 20 MG PO SCH (05:28)
[2021-05-11] MEDS: FERROUS SO4 325 MG TABLET (FP) PO SCH ×3 (09:04→17:08)
[2021-05-11] MEDS: PANTOPRAZOLE 40 MG TABLET PO SCH (09:04)
[2021-05-11] MEDS: MULTIVITAMINS (DAILY MVI) TABLET (FP) PO SCH (09:04)
[2021-05-11] MEDS: POLYETHYLENE GLYCOL (HEALTHYLAX) 3350 17 GM PACKET PO SCH (09:05)
[2021-05-11] MEDS: HYDROCHLOROTHIAZIDE 25 MG TABLET (FP) PO SCH (09:05)
[2021-05-11 09:40] LABS: BASO % 0.6 % (0-2.0); HEMATOCRIT 29.2 % (35.4-49); HEMOGLOBIN 8.7 GM/dL (11.7-16.9); LYMPH % 10.3 % (8-40); MCHC 29.9 g/dl (32.0-35.9); MEAN CELL VOLUME 64.2 fl (80-96); MEAN PLT VOLUME 8.2 fl (7.5-11.1); MONO % 7.1 % (3.8-10.2); PLATELET COUNT 508 10^3/uL (134-434); RBC 4.55 M/mm3 (4.00-5.60); RDW 30.4 % (11.9-15.9); WHITE BLOOD COUNT 7.1 K/mm3 (4.0-10.0)
[2021-05-11 09:43] LABS: MCH 19.2 pg (25.7-33.7)
[2021-05-11 09:47] LABS: BLOOD UREA NITROGEN 21.3 mg/dL (7-18); CALCIUM 8.9 mg/dL (8.5-10.1)
[2021-05-11 09:51] LABS: CREATININE 1.2 mg/dL (0.55-1.3)
[2021-05-11 17:26] LABS: ANISOCYTOSIS 2+; MACROCYTOSIS 0; OVALOCYTE 1+; PLATELET ESTIMATE INCREASED; TEAR DROP CELLS 1+
[2021-05-12] MEDS ORDERED: DEXTROSE 5%-WATER - 50 ML IVPB ONE ×3 (00:50→17:32)
[2021-05-12] MEDS ORDERED: CEFEPIME HCL 1 GM VIAL (RESTRICTED TO ID) ONE ×3 (00:50→17:32)
[2021-05-12] MEDS: CEFEPIME 1 GM in DEXTROSE 5%-WATER - 1 GM/50 ML IVPB IVPB SCH ×3 (01:04→18:03)
[2021-05-12] MEDS: ACETAMINOPHEN 500 MG TABLET (FP) PO PRN ×2 (01:12→18:03)
[2021-05-12] MEDS ORDERED: methaDONE HCL 40 MG DISPERSABLE TABLET ONE (04:45)
[2021-05-12] MEDS ORDERED: methaDONE HCL 10 MG TABLET ONE (04:45)
[2021-05-12] MEDS: methaDONE 80 MG, methaDONE 20 MG PO SCH (05:11)
[2021-05-12 08:27] LABS: BASO % 0.7 % (0-2.0); EOS % 1.6 % (0-4.5); HEMOGLOBIN 9.6 GM/dL (11.7-16.9); LYMPH % 8.6 % (8-40); MEAN CELL VOLUME 63.4 fl (80-96); MONO % 8.6 % (3.8-10.2); NEUT % 80.5 % (42.8-82.8); PLATELET COUNT 565 10^3/uL (134-434); RBC 5.05 M/mm3 (4.00-5.60); RDW 31.2 % (11.9-15.9); WHITE BLOOD COUNT 9.3 K/mm3 (4.0-10.0)
[2021-05-12 08:35] LABS: CALCIUM 9.1 mg/dL (8.5-10.1)
[2021-05-12 08:36] LABS: BLOOD UREA NITROGEN 23.6 mg/dL (7-18)
[2021-05-12 08:39] LABS: CREATININE 1.1 mg/dL (0.55-1.3)
[2021-05-12] MEDS: PANTOPRAZOLE 40 MG TABLET PO SCH (09:40)
[2021-05-12] MEDS: FERROUS SO4 325 MG TABLET (FP) PO SCH ×3 (09:40→18:26)
[2021-05-12] MEDS: HYDROCHLOROTHIAZIDE 25 MG TABLET (FP) PO SCH (09:40)
[2021-05-12] MEDS: POLYETHYLENE GLYCOL (HEALTHYLAX) 3350 17 GM PACKET PO SCH (09:40)
[2021-05-12] MEDS: MULTIVITAMINS (DAILY MVI) TABLET (FP) PO SCH (09:40)
[2021-05-12] MEDS ORDERED: TETRACAINE/BENZOCAINE/BUTAMBEN 20 GM SPR TP ONE (12:48)
[2021-05-12] MEDS ORDERED: PHYTONADIONE 10 MG/1 ML AMP IVPB ONE (13:18)
[2021-05-12] MEDS: METOCLOPRAMIDE HCL INJECTION 10 MG/2 ML VIAL IVPUSH SCH ×2 (16:24→22:36)
[2021-05-13] MEDS ORDERED: DEXTROSE 5%-WATER - 50 ML IVPB ONE ×2 (01:06→09:11)
[2021-05-13] MEDS ORDERED: CEFEPIME HCL 1 GM VIAL (RESTRICTED TO ID) ONE ×2 (01:06→09:11)
[2021-05-13] MEDS: CEFEPIME 1 GM in DEXTROSE 5%-WATER - 1 GM/50 ML IVPB IVPB SCH ×2 (01:42→09:16)
[2021-05-13] MEDS: ACETAMINOPHEN 500 MG TABLET (FP) PO PRN (03:28)
[2021-05-13] MEDS ORDERED: methaDONE HCL 40 MG DISPERSABLE TABLET ONE (05:04)
[2021-05-13] MEDS ORDERED: methaDONE HCL 10 MG TABLET ONE (05:04)
[2021-05-13] MEDS: methaDONE 80 MG, methaDONE 20 MG PO SCH (05:24)
[2021-05-13] MEDS: METOCLOPRAMIDE HCL INJECTION 10 MG/2 ML VIAL IVPUSH SCH (07:16)
[2021-05-13] MEDS: POLYETHYLENE GLYCOL (HEALTHYLAX) 3350 17 GM PACKET PO SCH (09:16)
[2021-05-13] MEDS: MULTIVITAMINS (DAILY MVI) TABLET (FP) PO SCH (09:16)
[2021-05-13] MEDS: PANTOPRAZOLE 40 MG TABLET PO SCH (09:16)
[2021-05-13] MEDS: HYDROCHLOROTHIAZIDE 25 MG TABLET (FP) PO SCH (09:17)
[2021-05-13] MEDS: FERROUS SO4 325 MG TABLET (FP) PO SCH (09:17)
[2021-05-13 09:46] VITALS: BP 136/78; PULSE 77; TEMP 98.2
== END 2021-05-13 11:20 | disposition home or self-care (01) | DRG 603 ==
LOC: JER 11:11 → JERBED 13:16 → J7W 05-08 00:05
PROVIDERS: ADMIT Family Medicine; ATTEND Family Medicine
PROC: 30233N1 Transfusion of Nonautologous Red Blood Cells into Peripheral Vein, Percutaneous Approach (ICD-10-PCS; 2021-05-07)
PROC: 0DB78ZX Excision of Stomach, Pylorus, Via Natural or Artificial Opening Endoscopic, Diagnostic (ICD-10-PCS; 2021-05-12)
PROC: 0DB58ZX Excision of Esophagus, Via Natural or Artificial Opening Endoscopic, Diagnostic (ICD-10-PCS; 2021-05-12)
PROC: 0DB98ZX Excision of Duodenum, Via Natural or Artificial Opening Endoscopic, Diagnostic (ICD-10-PCS; principal; 2021-05-12 12:30)
DX: L03.116 Cellulitis of left lower limb (principal); K56.609 Unspecified intestinal obstruction, unspecified as to partial versus complete obstruction; K92.2 Gastrointestinal hemorrhage, unspecified; F19.20 Other psychoactive substance dependence, uncomplicated; I13.0 Hypertensive heart and chronic kidney disease with heart failure and stage 1 through stage 4 chronic kidney disease, or unspecified chronic kidney disease; I50.32 Chronic diastolic (congestive) heart failure; L97.828 Non-pressure chronic ulcer of other part of left lower leg with other specified severity; L97.818 Non-pressure chronic ulcer of other part of right lower leg with other specified severity; F11.20 Opioid dependence, uncomplicated; L03.115 Cellulitis of right lower limb; E11.622 Type 2 diabetes mellitus with other skin ulcer; D50.9 Iron deficiency anemia, unspecified; I27.20 Pulmonary hypertension, unspecified; J44.9 Chronic obstructive pulmonary disease, unspecified; E11.22 Type 2 diabetes mellitus with diabetic chronic kidney disease; K29.70 Gastritis, unspecified, without bleeding; K31.9 Disease of stomach and duodenum, unspecified; E11.43 Type 2 diabetes mellitus with diabetic autonomic (poly)neuropathy; K31.84 Gastroparesis; N18.2 Chronic kidney disease, stage 2 (mild); K59.03 Drug induced constipation; T40.2X5A Adverse effect of other opioids, initial encounter; Z86.718 Personal history of other venous thrombosis and embolism; Z86.711 Personal history of pulmonary embolism
CPT/HCPCS: 36415; 36430; 73590-TC-LT-FY; 73590-TC-RT-FY; 80048; 80053; 82550; 82962; 83036; 84484; 85025; 85027; 85610; 85730; 86850; 86900; 86901; 86922; 87040; 87070; 87076; 87186; 87205; 93005; 93010; 93970-TC; 99285-25; C9803; P9058; U0003; U0005

== ENCOUNTER 2023-08-02 14:14 | Emergency (ER) | payer OTHER ==
[2023-08-02 14:23] VITALS: BP 137/71; PULSE 105; RESP 18; TEMP 98.4; BMI 23.1
[2023-08-02] MEDS ORDERED: ACETAMINOPHEN 1000 MG/100 ML BAG IVPB ONE (15:10)
== END 2023-08-02 16:21 | disposition left against medical advice (07) ==
LOC: JER 14:14
DX: L97.919 Non-pressure chronic ulcer of unspecified part of right lower leg with unspecified severity (principal); L97.929 Non-pressure chronic ulcer of unspecified part of left lower leg with unspecified severity
CPT/HCPCS: 99283-25; 99284-25

== ENCOUNTER 2023-12-14 10:14 | Inpatient (IN) | payer OTHER ==
[2023-12-14 12:10] LABS: HEMATOCRIT 15.9 % (35.4-49); MCHC 27.8 g/dl (32.0-35.9); MEAN CELL VOLUME 55.5 fl (80-96); PLATELET COUNT 275 10^3/uL (134-434); RBC 2.87 M/mm3 (4.00-5.60); RDW 20.7 % (11.9-15.9); WHITE BLOOD COUNT 4.2 K/mm3 (4.0-10.0)
[2023-12-14 12:17] LABS: MCH 15.4 pg (25.7-33.7)
[2023-12-14 12:21] LABS: HEMOGLOBIN 4.4 GM/dL (11.7-16.9)
[2023-12-14 12:26] LABS: POTASSIUM 4.5 mmol/L (3.5-5.1)
[2023-12-14 12:33] LABS: ALBUMIN 2.5 g/dl (3.4-5.0); BLOOD UREA NITROGEN 20.1 mg/dL (7-18)
[2023-12-14 12:34] LABS: CREATININE 1.7 mg/dL (0.55-1.3)
[2023-12-14 12:35] LABS: BILIRUBIN,TOTAL 0.3 mg/dL (0.2-1); TOT PROT 6.7 g/dl (6.4-8.2)
[2023-12-14 13:09] LABS: INR 1.27 (0.83-1.09); PROTHROMBIN TIME (PATIENT) 14.2 SEC (9.7-13.0)
[2023-12-14 13:46] LABS: ANISOCYTOSIS 2+; MACROCYTOSIS 0; OVALOCYTE 2+
[2023-12-14] MEDS: ACETAMINOPHEN 1000 MG/100 ML BAG IVPB ONE (14:03)
[2023-12-14 15:25] LABS: HEMATOCRIT 18.5 % (35.4-49); MCHC 26.7 g/dl (32.0-35.9); MEAN CELL VOLUME 56.4 fl (80-96); MEAN PLT VOLUME 8.2 fl (7.5-11.1); PLATELET COUNT 302 10^3/uL (134-434); RBC 3.28 M/mm3 (4.00-5.60); RDW 21.7 % (11.9-15.9)
[2023-12-14 15:32] LABS: MCH 15.1 pg (25.7-33.7)
[2023-12-14 15:35] LABS: HEMOGLOBIN 4.9 GM/dL (11.7-16.9)
[2023-12-14 16:03] LABS: ANISOCYTOSIS 2+; MACROCYTOSIS 0; OVALOCYTE 1+
[2023-12-15] MEDS: metFORMIN HCL 500 MG TABLET (FP) PO SCH (06:49)
[2023-12-15 07:34] LABS: POTASSIUM 5.1 mmol/L (3.5-5.1)
[2023-12-15 07:35] LABS: BASO % 0.6 % (0-2.0); EOS % 1.5 % (0-4.5); MCHC 29.7 g/dl (32.0-35.9); MEAN CELL VOLUME 61.5 fl (80-96); MEAN PLT VOLUME 8.1 fl (7.5-11.1); MONO % 10.1 % (3.8-10.2); NEUT % 78.8 % (42.8-82.8); PLATELET COUNT 266 10^3/uL (134-434); RBC 3.41 M/mm3 (4.00-5.60); RDW 27.3 % (11.9-15.9); WHITE BLOOD COUNT 5.1 K/mm3 (4.0-10.0)
[2023-12-15 07:44] LABS: ALBUMIN 2.5 g/dl (3.4-5.0); BLOOD UREA NITROGEN 18.2 mg/dL (7-18); CALCIUM 7.9 mg/dL (8.5-10.1)
[2023-12-15 07:45] LABS: MCH 18.3 pg (25.7-33.7)
[2023-12-15 07:46] LABS: HEMOGLOBIN 6.2 GM/dL (11.7-16.9)
[2023-12-15 07:47] LABS: CREATININE 1.4 mg/dL (0.55-1.3)
[2023-12-15 07:50] LABS: BILIRUBIN,TOTAL 1.4 mg/dL (0.2-1); TOT PROT 6.8 g/dl (6.4-8.2)
[2023-12-15] MEDS: methaDONE HCL 40 MG DISPERSABLE TABLET PO SCH (11:16)
[2023-12-15] MEDS: POLYETHYLENE GLYCOL (HEALTHYLAX) 3350 17 GM PACKET PO SCH (11:17)
[2023-12-15 17:08] VITALS: BMI 22.8
[2023-12-15] MEDS: INSULIN ASPART SLIDING SCALE (NOVOLOG) 1 VIAL SQ SCH (17:15)
[2023-12-16 08:09] LABS: HEMATOCRIT 25.8 % (35.4-49); HEMOGLOBIN 7.8 GM/dL (11.7-16.9); MCH 20.2 pg (25.7-33.7); MCHC 30.3 g/dl (32.0-35.9); MEAN CELL VOLUME 66.6 fl (80-96); MEAN PLT VOLUME 7.9 fl (7.5-11.1); PLATELET COUNT 264 10^3/uL (134-434); RBC 3.87 M/mm3 (4.00-5.60); RDW 29.8 % (11.9-15.9); WHITE BLOOD COUNT 5.7 K/mm3 (4.0-10.0)
[2023-12-16 08:16] LABS: POTASSIUM 4.7 mmol/L (3.5-5.1)
[2023-12-16 08:21] LABS: ALBUMIN 2.6 g/dl (3.4-5.0); CALCIUM 8.3 mg/dL (8.5-10.1)
[2023-12-16 08:22] LABS: BLOOD UREA NITROGEN 20.4 mg/dL (7-18)
[2023-12-16 08:24] LABS: CREATININE 1.5 mg/dL (0.55-1.3)
[2023-12-16 08:26] LABS: BILIRUBIN,TOTAL 0.7 mg/dL (0.2-1)
[2023-12-16] MEDS: PANTOPRAZOLE 40 MG TABLET PO SCH (09:10)
[2023-12-16] MEDS: IRON SUCROSE INJECTION 200 MG in SODIUM CHLORIDE 100 ML IVPB ONE (10:19)
[2023-12-16] MEDS ORDERED: ACETAMINOPHEN 325 MG TABLET (FP) ONE (13:29)
[2023-12-16] MEDS: ACETAMINOPHEN 325 MG TABLET (FP) PO PRN (13:35)
[2023-12-17 07:53] LABS: BASO % 0.5 % (0-2.0); EOS % 2.3 % (0-4.5); HEMATOCRIT 25.8 % (35.4-49); HEMOGLOBIN 7.7 GM/dL (11.7-16.9); LYMPH % 15.9 % (8-40); MEAN CELL VOLUME 66.9 fl (80-96); MEAN PLT VOLUME 8.1 fl (7.5-11.1); NEUT % 72.3 % (42.8-82.8); PLATELET COUNT 237 10^3/uL (134-434); RBC 3.87 M/mm3 (4.00-5.60); RDW 30.1 % (11.9-15.9); WHITE BLOOD COUNT 5.4 K/mm3 (4.0-10.0)
[2023-12-17 08:22] LABS: POTASSIUM 4.8 mmol/L (3.5-5.1)
[2023-12-17 08:24] LABS: ALBUMIN 2.6 g/dl (3.4-5.0); BLOOD UREA NITROGEN 20.8 mg/dL (7-18); CALCIUM 8.1 mg/dL (8.5-10.1)
[2023-12-17 08:28] LABS: CREATININE 1.5 mg/dL (0.55-1.3)
[2023-12-17 08:30] LABS: BILIRUBIN,TOTAL 0.5 mg/dL (0.2-1); TOT PROT 6.9 g/dl (6.4-8.2)
[2023-12-17] MEDS: IRON SUCROSE INJECTION 200 MG in SODIUM CHLORIDE 100 ML IVPB ONE (11:17)
[2023-12-18 07:47] LABS: POTASSIUM 5.2 mmol/L (3.5-5.1)
[2023-12-18 07:54] LABS: CALCIUM 8.2 mg/dL (8.5-10.1)
[2023-12-18 07:55] LABS: ALBUMIN 2.6 g/dl (3.4-5.0); BLOOD UREA NITROGEN 20.2 mg/dL (7-18)
[2023-12-18 07:58] LABS: CREATININE 1.4 mg/dL (0.55-1.3)
[2023-12-18 08:00] LABS: BILIRUBIN,TOTAL 0.4 mg/dL (0.2-1); TOT PROT 6.8 g/dl (6.4-8.2)
[2023-12-18 08:17] LABS: HEMATOCRIT 26.2 % (35.4-49); HEMOGLOBIN 7.9 GM/dL (11.7-16.9); MCH 20.2 pg (25.7-33.7); MEAN CELL VOLUME 67.4 fl (80-96); MEAN PLT VOLUME 8.2 fl (7.5-11.1); PLATELET COUNT 241 10^3/uL (134-434); RBC 3.89 M/mm3 (4.00-5.60); RDW 31.2 % (11.9-15.9); WHITE BLOOD COUNT 4.9 K/mm3 (4.0-10.0)
[2023-12-18 10:04] LABS: ANISOCYTOSIS 1+; MACROCYTOSIS 0; OVALOCYTE 2+; TEAR DROP CELLS 1+
[2023-12-18] MEDS: IRON SUCROSE INJECTION 200 MG in SODIUM CHLORIDE 100 ML IVPB ONE (10:07)
[2023-12-18 19:02] LABS: EPI CELLS 13 /uL (0-25.1); HYALINE CASTS 0 /uL (0-3.1); PH,URINE 5.5 (5.0-8.0); URINE APPEARANCE CLEAR; URINE BACTERIA 64 /uL (0-1359); URINE BILIRUBIN NEGATIVE (NEGATIVE); URINE COLOR YELLOW; URINE GLUCOSE (UA) NEGATIVE (NEGATIVE); URINE KETONE NEGATIVE (NEGATIVE); URINE LEUK ESTERASE 2+ (NEGATIVE); URINE NITRITE NEGATIVE (NEGATIVE); URINE PROTEIN NEGATIVE (NEGATIVE); URINE RBC 25 /uL (0-23.9); URINE UROBILINOGEN 0.2 mg/dL (0.2-1.0); URINE WBC 129 /uL (0-25.8)
[2023-12-19 07:47] LABS: HEMATOCRIT 28.3 % (35.4-49); HEMOGLOBIN 8.5 GM/dL (11.7-16.9); MCH 20.6 pg (25.7-33.7); MCHC 29.9 g/dl (32.0-35.9); MEAN CELL VOLUME 68.7 fl (80-96); PLATELET COUNT 242 10^3/uL (134-434); RBC 4.11 M/mm3 (4.00-5.60); RDW 31.7 % (11.9-15.9); WHITE BLOOD COUNT 4.7 K/mm3 (4.0-10.0)
[2023-12-19 08:02] LABS: POTASSIUM 5.2 mmol/L (3.5-5.1)
[2023-12-19 08:09] LABS: ALBUMIN 2.6 g/dl (3.4-5.0); BLOOD UREA NITROGEN 18.5 mg/dL (7-18); CALCIUM 8.3 mg/dL (8.5-10.1)
[2023-12-19 08:12] LABS: CREATININE 1.4 mg/dL (0.55-1.3)
[2023-12-19 08:14] LABS: BILIRUBIN,TOTAL 0.4 mg/dL (0.2-1); TOT PROT 7.2 g/dl (6.4-8.2)
[2023-12-19 08:25] LABS: INR 1.14 (0.83-1.09); PROTHROMBIN TIME (PATIENT) 13.1 SEC (9.7-13.0)
[2023-12-19 09:58] LABS: ANISOCYTOSIS 2+; MACROCYTOSIS 0; OVALOCYTE 1+
[2023-12-19 09:59] LABS: PLATELET ESTIMATE ADEQUATE
[2023-12-19] MEDS: SODIUM ZIRCONIUM CYCLOSILICATE (LOKELMA) 5 GM PACKET PO SCH (13:44)
[2023-12-19] MEDS: amLODIPine BESYLATE 2.5 MG TABLET (FP) PO SCH (16:00)
[2023-12-19 16:09] LABS: FREE KAPPA,SERUM 114.5 mg/L (3.3-19.4)
[2023-12-20 07:51] LABS: POTASSIUM 4.8 mmol/L (3.5-5.1)
[2023-12-20 07:56] LABS: BLOOD UREA NITROGEN 18.8 mg/dL (7-18)
[2023-12-20 07:57] LABS: ALBUMIN 2.5 g/dl (3.4-5.0)
[2023-12-20 07:58] LABS: CREATININE 1.3 mg/dL (0.55-1.3)
[2023-12-20 08:00] LABS: BILIRUBIN,TOTAL 0.4 mg/dL (0.2-1); TOT PROT 6.5 g/dl (6.4-8.2)
[2023-12-20 08:09] LABS: BASO % 0.8 % (0-2.0); EOS % 2.6 % (0-4.5); HEMATOCRIT 25.7 % (35.4-49); HEMOGLOBIN 7.7 GM/dL (11.7-16.9); LYMPH % 16.4 % (8-40); MCH 20.7 pg (25.7-33.7); MCHC 30.2 g/dl (32.0-35.9); MEAN CELL VOLUME 68.6 fl (80-96); MEAN PLT VOLUME 8.3 fl (7.5-11.1); MONO % 10.8 % (3.8-10.2); NEUT % 69.4 % (42.8-82.8); PLATELET COUNT 179 10^3/uL (134-434); RBC 3.74 M/mm3 (4.00-5.60); RDW 34.1 % (11.9-15.9); WHITE BLOOD COUNT 4.1 K/mm3 (4.0-10.0)
[2023-12-20] MEDS: amLODIPine BESYLATE 5 MG TABLET (FP) PO SCH (11:17)
[2023-12-20 22:18] VITALS: RESP 18
[2023-12-21 10:38] VITALS: BP 139/75; PULSE 71; TEMP 98.1
== END 2023-12-21 11:31 | disposition other institution (70) | DRG 378 ==
LOC: JER 10:14 → JERBED 15:58 → J4S 20:44 → OBSVTOIN 12-15 13:38
PROVIDERS: ADMIT Internal Medicine; ATTEND Internal Medicine
PROC: 0DB68ZX Excision of Stomach, Via Natural or Artificial Opening Endoscopic, Diagnostic (ICD-10-PCS; 2023-12-19)
PROC: 30233N1 Transfusion of Nonautologous Red Blood Cells into Peripheral Vein, Percutaneous Approach (ICD-10-PCS; 2023-12-19)
PROC: 0DB98ZX Excision of Duodenum, Via Natural or Artificial Opening Endoscopic, Diagnostic (ICD-10-PCS; principal; 2023-12-19 12:00)
DX: K25.4 Chronic or unspecified gastric ulcer with hemorrhage (principal); F11.20 Opioid dependence, uncomplicated; L97.818 Non-pressure chronic ulcer of other part of right lower leg with other specified severity; L97.828 Non-pressure chronic ulcer of other part of left lower leg with other specified severity; I50.32 Chronic diastolic (congestive) heart failure; I13.0 Hypertensive heart and chronic kidney disease with heart failure and stage 1 through stage 4 chronic kidney disease, or unspecified chronic kidney disease; K21.00 Gastro-esophageal reflux disease with esophagitis, without bleeding; I83.018 Varicose veins of right lower extremity with ulcer other part of lower leg; I83.028 Varicose veins of left lower extremity with ulcer other part of lower leg; K83.8 Other specified diseases of biliary tract; I27.20 Pulmonary hypertension, unspecified; K29.80 Duodenitis without bleeding; K29.70 Gastritis, unspecified, without bleeding; D50.9 Iron deficiency anemia, unspecified; F17.210 Nicotine dependence, cigarettes, uncomplicated; J44.9 Chronic obstructive pulmonary disease, unspecified; D64.9 Anemia, unspecified; E87.5 Hyperkalemia; E11.22 Type 2 diabetes mellitus with diabetic chronic kidney disease; N18.9 Chronic kidney disease, unspecified; Z86.718 Personal history of other venous thrombosis and embolism
CPT/HCPCS: 36415; 36430; 71045-TC-FY; 76705-TC; 76775-TC; 80053; 81003; 82570; 82607; 82728; 82747; 82784; 82962; 83036; 83540; 83550; 83615; 83883; 84155; 84156; 84165; 84484; 85014; 85025; 85045; 85379; 85610; 86850; 86900; 86901; 86922; 88305-TC; 93005; 93010; 93306-TC; 99291; G0378; J0131; J1756; P9038; P9058

== ENCOUNTER 2023-12-22 11:42 | Inpatient (IN) | payer OTHER ==
[2023-12-22 13:54] LABS: HEMOGLOBIN 8.9 GM/dL (11.7-16.9); MCH 20.9 pg (25.7-33.7); MCHC 29.5 g/dl (32.0-35.9); MEAN CELL VOLUME 70.7 fl (80-96); MEAN PLT VOLUME 7.8 fl (7.5-11.1); PLATELET COUNT 239 10^3/uL (134-434); RBC 4.24 M/mm3 (4.00-5.60); RDW 35.8 % (11.9-15.9); WHITE BLOOD COUNT 5.3 K/mm3 (4.0-10.0)
[2023-12-22 14:32] LABS: BLOOD UREA NITROGEN 16.1 mg/dL (7-18)
[2023-12-22 14:33] LABS: ALBUMIN 3.1 g/dl (3.4-5.0); CALCIUM 9.3 mg/dL (8.5-10.1)
[2023-12-22 14:35] LABS: CREATININE 1.5 mg/dL (0.55-1.3)
[2023-12-22 14:37] LABS: BILIRUBIN,TOTAL 0.7 mg/dL (0.2-1); TOT PROT 7.7 g/dl (6.4-8.2)
[2023-12-22 14:42] LABS: ANISOCYTOSIS 2+; MACROCYTOSIS 0
[2023-12-22] MEDS ORDERED: ACETAMINOPHEN 325 MG TABLET (FP) ONE (20:57)
[2023-12-22] MEDS: ACETAMINOPHEN 325 MG TABLET (FP) PO ONE (21:06)
[2023-12-23] MEDS: LOSARTAN POTASSIUM 50 MG TABLET PO ONE (02:33)
[2023-12-23 08:43] LABS: BASO % 0.8 % (0-2.0); EOS % 2.5 % (0-4.5); HEMATOCRIT 30.5 % (35.4-49); HEMOGLOBIN 9.2 GM/dL (11.7-16.9); LYMPH % 16.4 % (8-40); MEAN PLT VOLUME 8.2 fl (7.5-11.1); MONO % 11.9 % (3.8-10.2); NEUT % 68.4 % (42.8-82.8); PLATELET COUNT 233 10^3/uL (134-434); RBC 4.36 M/mm3 (4.00-5.60); RDW 36.2 % (11.9-15.9); WHITE BLOOD COUNT 5.2 K/mm3 (4.0-10.0)
[2023-12-23 08:49] LABS: POTASSIUM 5.2 mmol/L (3.5-5.1)
[2023-12-23 08:54] LABS: ALBUMIN 2.9 g/dl (3.4-5.0); BLOOD UREA NITROGEN 16.8 mg/dL (7-18); MAGNESIUM 2.3 mg/dL (1.8-2.4)
[2023-12-23 08:57] LABS: CREATININE 1.4 mg/dL (0.55-1.3); PHOSPHOROUS 3.3 mg/dL (2.5-4.9)
[2023-12-23 08:59] LABS: BILIRUBIN,TOTAL 0.5 mg/dL (0.2-1); TOT PROT 7.2 g/dl (6.4-8.2)
[2023-12-23] MEDS: LOSARTAN POTASSIUM 50 MG TABLET PO SCH (09:12)
[2023-12-23] MEDS: methaDONE HCL 40 MG DISPERSABLE TABLET PO ONE (09:12)
[2023-12-23] MEDS: PANTOPRAZOLE 40 MG TABLET PO SCH (09:12)
[2023-12-23] MEDS: ENOXAPARIN NA (PORCINE) 40 MG/0.4 ML DISP.SYRIN SQ SCH (09:13)
[2023-12-23] MEDS: INSULIN ASPART SLIDING SCALE (NOVOLOG) 1 VIAL SQ SCH (11:19)
[2023-12-23] MEDS: MUPIROCIN CA 2% TOPICAL CREAM 15 GM TUBE TP SCH (14:23)
[2023-12-23] MEDS: DOXYCYCLINE HYCLATE 100 MG CAPSULE PO SCH (17:01)
[2023-12-24] MEDS: methaDONE HCL 40 MG DISPERSABLE TABLET PO SCH (11:58)
[2023-12-25] MEDS: ACETAMINOPHEN 325 MG TABLET (FP) PO ONE (00:48)
[2023-12-25 08:43] LABS: POTASSIUM 5.8 mmol/L (3.5-5.1)
[2023-12-25 08:45] LABS: CALCIUM 9.1 mg/dL (8.5-10.1)
[2023-12-25 08:46] LABS: ALBUMIN 2.8 g/dl (3.4-5.0); BLOOD UREA NITROGEN 23.1 mg/dL (7-18)
[2023-12-25 08:49] LABS: CREATININE 1.6 mg/dL (0.55-1.3)
[2023-12-25 08:50] LABS: BILIRUBIN,TOTAL 0.3 mg/dL (0.2-1); TOT PROT 7.1 g/dl (6.4-8.2)
[2023-12-25 08:54] LABS: EOS % 3.1 % (0-4.5); HEMATOCRIT 29.8 % (35.4-49); HEMOGLOBIN 9.1 GM/dL (11.7-16.9); LYMPH % 25.7 % (8-40); MCH 21.6 pg (25.7-33.7); MCHC 30.5 g/dl (32.0-35.9); MEAN CELL VOLUME 70.8 fl (80-96); MEAN PLT VOLUME 8.6 fl (7.5-11.1); MONO % 11.8 % (3.8-10.2); NEUT % 58.4 % (42.8-82.8); PLATELET COUNT 207 10^3/uL (134-434); RDW 34.7 % (11.9-15.9); WHITE BLOOD COUNT 4.6 K/mm3 (4.0-10.0)
[2023-12-25] MEDS: FUROSEMIDE 40 MG TABLET (FP) PO ONE (17:31)
[2023-12-25] MEDS: SODIUM ZIRCONIUM CYCLOSILICATE (LOKELMA) 5 GM PACKET PO SCH (17:32)
[2023-12-26] MEDS: ACETAMINOPHEN 325 MG TABLET (FP) PO ONE (03:30)
[2023-12-26 08:31] LABS: BASO % 1.3 % (0-2.0); EOS % 2.9 % (0-4.5); HEMATOCRIT 29.6 % (35.4-49); LYMPH % 21.6 % (8-40); MCH 21.6 pg (25.7-33.7); MCHC 30.2 g/dl (32.0-35.9); MEAN CELL VOLUME 71.4 fl (80-96); MEAN PLT VOLUME 8.4 fl (7.5-11.1); MONO % 14.5 % (3.8-10.2); NEUT % 59.7 % (42.8-82.8); PLATELET COUNT 206 10^3/uL (134-434); RBC 4.15 M/mm3 (4.00-5.60); RDW 35.3 % (11.9-15.9); WHITE BLOOD COUNT 4.8 K/mm3 (4.0-10.0)
[2023-12-26 08:39] LABS: CALCIUM 9.3 mg/dL (8.5-10.1)
[2023-12-26 08:40] LABS: ALBUMIN 2.8 g/dl (3.4-5.0); BLOOD UREA NITROGEN 26.9 mg/dL (7-18)
[2023-12-26 08:43] LABS: CREATININE 1.8 mg/dL (0.55-1.3)
[2023-12-26 08:45] LABS: BILIRUBIN,TOTAL 0.5 mg/dL (0.2-1)
[2023-12-26] MEDS: amLODIPine BESYLATE 5 MG TABLET (FP) PO SCH (09:05)
[2023-12-26 12:25] LABS: ANISOCYTOSIS 3+; MACROCYTOSIS 2+; OVALOCYTE 1+
[2023-12-27] MEDS: FUROSEMIDE 20 MG TABLET (FP) PO ONE (13:00)
[2023-12-29] MEDS: ACETAMINOPHEN 325 MG TABLET (FP) PO PRN (02:49)
[2023-12-29 08:28] LABS: POTASSIUM 5.1 mmol/L (3.5-5.1)
[2023-12-29 08:34] LABS: CALCIUM 9.2 mg/dL (8.5-10.1)
[2023-12-29 08:35] LABS: ALBUMIN 2.9 g/dl (3.4-5.0)
[2023-12-29 08:38] LABS: CREATININE 1.8 mg/dL (0.55-1.3)
[2023-12-29 08:39] LABS: BILIRUBIN,TOTAL 0.3 mg/dL (0.2-1); TOT PROT 7.3 g/dl (6.4-8.2)
[2023-12-29 14:53] VITALS: BMI 23.2
[2023-12-31 09:25] LABS: POTASSIUM 5.3 mmol/L (3.5-5.1)
[2023-12-31 09:30] LABS: ALBUMIN 2.9 g/dl (3.4-5.0); CALCIUM 9.2 mg/dL (8.5-10.1)
[2023-12-31 09:31] LABS: BLOOD UREA NITROGEN 38.5 mg/dL (7-18)
[2023-12-31 09:34] LABS: CREATININE 1.9 mg/dL (0.55-1.3)
[2023-12-31 09:35] LABS: BILIRUBIN,TOTAL 0.3 mg/dL (0.2-1); TOT PROT 7.3 g/dl (6.4-8.2)
[2023-12-31 14:44] VITALS: RESP 18
[2024-01-01 06:16] VITALS: BP 138/69; PULSE 73; TEMP 98.2
== END 2024-01-01 18:07 | disposition home or self-care (01) | DRG 300 ==
LOC: JER 11:42 → JERBED 18:50 → OBSVTOIN 21:43 → J7W 21:55
PROVIDERS: ADMIT Internal Medicine; ATTEND Internal Medicine
DX: I83.028 Varicose veins of left lower extremity with ulcer other part of lower leg (principal); F11.20 Opioid dependence, uncomplicated; N17.9 Acute kidney failure, unspecified; L97.818 Non-pressure chronic ulcer of other part of right lower leg with other specified severity; L97.828 Non-pressure chronic ulcer of other part of left lower leg with other specified severity; I13.0 Hypertensive heart and chronic kidney disease with heart failure and stage 1 through stage 4 chronic kidney disease, or unspecified chronic kidney disease; D64.9 Anemia, unspecified; E11.51 Type 2 diabetes mellitus with diabetic peripheral angiopathy without gangrene; D50.9 Iron deficiency anemia, unspecified; J44.9 Chronic obstructive pulmonary disease, unspecified; E87.5 Hyperkalemia; I27.20 Pulmonary hypertension, unspecified; I83.018 Varicose veins of right lower extremity with ulcer other part of lower leg; E11.22 Type 2 diabetes mellitus with diabetic chronic kidney disease; N18.9 Chronic kidney disease, unspecified; I50.9 Heart failure, unspecified; Z86.718 Personal history of other venous thrombosis and embolism
CPT/HCPCS: 36415; 80053; 80305; 80307; 82962; 83036; 83735; 84100; 85025; 87070; 87077; 87186; 87205; 93005; 93010; 97116-GP; 99285-25; G0378